=== PATIENT | female | born 1990 | race Caucasian/White ===

== ENCOUNTER 2018-09-20 14:53 | Emergency (ER) | payer OTHER ==
[~2018-09-20] VITALS: Ht 154.9 cm; Wt 79.5 kg
[2018-09-20] MEDS ORDERED: PREN1CHW6 PO (14:58)
[2018-09-20 15:33] LABS: BASO # 0.1 10^3/uL (0.0-0.2); BASO % 0.5 % (0.0-1.0); EOS # 0.1 10^3/uL (0.0-0.50); EOS % 1.3 % (0.0-3.0); HEMATOCRIT 43.1 % (36.0-47.0); HEMOGLOBIN 14.6 g/dl (12.0-15.5); LYMPH # 2.6 10^3/uL (1.5-6.5); LYMPH % 25.1 % (24.0-44.0); MEAN CORPUSCULAR HEMOGLOBIN 30.9 pg (27.0-33.0); MEAN CORPUSCULAR HGB CONC 33.9 g/dl (32.0-36.5); MEAN CORPUSCULAR VOLUME 91.1 fl (80.0-96.0); MONO # 0.6 10^3/uL (0.0-0.8); MONO % 5.8 % (0.0-5.0); NEUTROPHILS # 6.9 10^3/uL (1.8-7.7); PLATELET COUNT, AUTOMATED 421 10^3/uL (150-450); RED BLOOD COUNT 4.73 10^6/uL (4.00-5.40); WHITE BLOOD COUNT 10.3 10^3/uL (4.0-10.0)
[2018-09-20 16:35] LABS: BLOOD UREA NITROGEN 10 MG/DL (7-18); CALCIUM LEVEL 9.4 MG/DL (8.5-10.1); CARBON DIOXIDE LEVEL 23 MEQ/L (21-32); CHLORIDE LEVEL 105 MEQ/L (98-107); CREATININE FOR GFR 0.57 MG/DL (0.55-1.30); GLOMERULAR FILTRATION RATE > 60.0 (>60); GLUCOSE, FASTING 88 MG/DL (70-100); HCG, SERUM QUANTITATIVE 9729 MIU/ML; POTASSIUM SERUM 4.1 MEQ/L (3.5-5.1); SODIUM LEVEL 137 MEQ/L (136-145)
[2018-09-20 17:22] VITALS: BP 102/61
--- NOTE | 2018-09-21 07:53 | REP ---
First trimester obstetric ultrasound for vaginal bleeding, stat request: There are no comparison studies. The bladder appears adequately distended. The uterus is anteverted and normal size measuring Mari 1 x 3.6 by 4.1 cm. There is no intrauterine gestational sac. The endometrium is not thickened measuring 8.9 mm. Right ovary: The right ovary is normal size measuring 2.2 x 2.3 x 1.9 cm. There is no dominant mass or cyst. There is vascular flow with the Doppler resistive index in the parenchymal arteries measuring 0.64. Left ovary: There is a left ovarian cyst measuring 2.4 x 1.9 x 2.6 cm, possibly a corpus luteum. The left ovary is normal size measuring 2.2 x 2.7 x 3.3 cm. There is left ovarian vascular flow. The Doppler resistive index in an the parenchymal arteries measures 0.65. No free fluid in the pelvis. Impression: There is no visible intrauterine gestation. This is nonspecific and could represent early gestation not yet visible ultrasonographically, spontaneous or ectopic gestation. Follow-up is recommended. Electronically Signed by Adonis Lehman MD 09/20/2018 05:02 P
== END 2018-09-20 18:20 | disposition home or self-care (01) ==
LOC: M ED 14:53
DX: O03.9 Complete or unspecified spontaneous abortion without complication (principal); O99.330 Smoking (tobacco) complicating pregnancy, unspecified trimester; Z79.899 Other long term (current) drug therapy; Z91.041 Radiographic dye allergy status; Z88.0 Allergy status to penicillin

== ENCOUNTER 2019-02-07 17:28 | Emergency (ER) | payer OTHER ==
[~2019-02-07] VITALS: Ht 154.9 cm; Wt 82.7 kg
[~2019-02-07 17:28] MED LIST: PREN1CHW6 PO
[2019-02-07] MEDS ORDERED: CHOL4PW PO (17:33)
[2019-02-07] MEDS ORDERED: diphenhydrAMINE INJ 50MG/ML VIAL (J1200) IV STA (18:21)
[2019-02-07] MEDS ORDERED: ACETAMINOPHEN 325 MG TAB PO ONE (18:30)
[2019-02-07] MEDS ORDERED: METOCLOPRAMIDE INJ 10MG/2ML VIAL (J2765) IV ONE (18:30)
[2019-02-07] MEDS ORDERED: NS 1,000 ML IV ONE (18:30)
[2019-02-07 19:19] LABS: BASO % 0.6 % (0.0-1.0); EOS # 0.2 10^3/uL (0.0-0.5); EOS % 2.5 % (0.0-3.0); HEMOGLOBIN 13.9 g/dl (12.0-15.5); LYMPH # 2.6 10^3/uL (1.5-5.0); LYMPH % 35.4 % (24.0-44.0); MEAN CORPUSCULAR HEMOGLOBIN 30.4 pg (27.0-33.0); MEAN CORPUSCULAR HGB CONC 33.9 g/dl (32.0-36.5); MEAN CORPUSCULAR VOLUME 89.7 fl (80.0-96.0); MONO # 0.7 10^3/uL (0.0-0.8); MONO % 9.4 % (0.0-5.0); NEUTROPHILS # 3.8 10^3/uL (1.5-8.5); NEUTROPHILS % 51.8 % (36.0-66.0); PLATELET COUNT, AUTOMATED 368 10^3/uL (150-450); RED BLOOD COUNT 4.57 10^6/uL (4.00-5.40); WHITE BLOOD COUNT 7.3 10^3/uL (4.0-10.0)
--- NOTE | 2019-02-07 21:08 | REPVR ---
PROCEDURE INFORMATION: Exam: MR Angiography Neck Without Contrast Exam date and time: 02/07/2019 8:37 PM Age: 28 years old Clinical history: Headache; Patient HX: HX migraine disorder, neck pain, stiffness. Family HX aneurysm PT denies and prior dx. Symptoms have subsided. PT states priors @ [facility] unable to access priors; Additional info: Neck pain, fam HX aneurysm TECHNIQUE: Imaging protocol: Magnetic resonance angiography of the neck without contrast. 3D rendering: MIP reconstructed images were created and reviewed. COMPARISON: No relevant prior studies available. FINDINGS: Right common carotid artery: Unremarkable. No stenosis. No dissection or occlusion. Right internal carotid artery: Unremarkable extracranial segment. No stenosis. No dissection or occlusion. Right external carotid artery: Unremarkable. No stenosis. No dissection or occlusion of the origin. Right vertebral artery: Unremarkable. No stenosis. No dissection or occlusion. Left common carotid artery: Unremarkable. No stenosis. No dissection or occlusion. Left internal carotid artery: Unremarkable extracranial segment. No stenosis. No dissection or occlusion. Left external carotid artery: Unremarkable. No stenosis. No dissection or occlusion of the origin. Left vertebral artery: Unremarkable. No stenosis. No dissection or occlusion. IMPRESSION: No hemodynamically significant stenosis or dissection. COMMENT: Reference per NASCET criteria for degree of stenosis: Mild: less than 50% stenosis. Moderate: 50-69% stenosis. Severe: 70-94% stenosis. Near occlusion: 95-99% stenosis. Electronically signed by: Saturnino Drake On 02/07/2019 21:07:13 PM
--- NOTE | 2019-02-07 21:12 | REPVR ---
PROCEDURE INFORMATION: Exam: MR Angiogram Head Without Contrast, Arteries Exam date and time: 02/07/2019 8:37 PM Age: 28 years old Clinical history: Headache; Patient HX: HX migraine disorder, neck pain, stiffness. Family HX aneurysm PT denies and prior dx. Symptoms have subsided. PT states priors @ [facility] [place] unable to access priors; Additional info: Neck pain, HX family aneurysm TECHNIQUE: Imaging protocol: MR angiogram head without contrast. Exam focused on the arteries. 3D rendering: MIP reconstructed images were created and reviewed. COMPARISON: MRA CAROTID WITHOUT CONTRAST 02/07/2019 8:19 PM FINDINGS: Right internal carotid artery: Unremarkable. Intracranial segment is patent with no significant stenosis. No aneurysm. Right anterior cerebral artery: Unremarkable. No occlusion or significant stenosis. No aneurysm. Right middle cerebral artery: Unremarkable. No occlusion or significant stenosis. No aneurysm. Right posterior cerebral artery: Unremarkable. No occlusion or significant stenosis. No aneurysm. Right vertebral artery: Unremarkable. No occlusion or significant stenosis. No aneurysm. Left internal carotid artery: Unremarkable. Intracranial segment is patent with no significant stenosis. No aneurysm. Left anterior cerebral artery: Unremarkable. No occlusion or significant stenosis. No aneurysm. Left middle cerebral artery: Unremarkable. No occlusion or significant stenosis. No aneurysm. Left posterior cerebral artery: Unremarkable. No occlusion or significant stenosis. No aneurysm. Left vertebral artery: Unremarkable. No occlusion or significant stenosis. No aneurysm. Basilar artery: Unremarkable. No occlusion or significant stenosis. No aneurysm. IMPRESSION: No acute findings. Electronically signed by: Saturnino Drake On 02/07/2019 21:11:41 PM
[2019-02-07] MEDS ORDERED: METHOCARBAMOL 1,000 MG/10 ML VIAL (J2800) IV ONE (21:30)
[2019-02-07] MEDS ORDERED: KETOROLAC 30 MG/ML VIAL (J1885) IV ONE (21:30)
[2019-02-07] MEDS ORDERED: NAPR-837 PO (23:00)
[2019-02-07] MEDS ORDERED: ROBA750T4 PO (23:00)
[2019-02-07 23:20] VITALS: BP 114/72
== END 2019-02-07 23:25 | disposition home or self-care (01) ==
LOC: M ED 17:28
DX: M54.2 Cervicalgia (principal); M62.838 Other muscle spasm; R51 Headache; K58.9 Irritable bowel syndrome, unspecified; F17.200 Nicotine dependence, unspecified, uncomplicated; Z79.899 Other long term (current) drug therapy; Z88.0 Allergy status to penicillin; Z91.89 Other specified personal risk factors, not elsewhere classified
CPT/HCPCS: 70544; 70547; 80047; 83735; 84702; 85025; 96361; 96374; 96375; 99284; J1200; J1885; J2765; J2800

== ENCOUNTER 2019-04-27 12:11 | Emergency (ER) | payer OTHER ==
[~2019-04-27] VITALS: Ht 154.9 cm; Wt 82.8 kg
[~2019-04-27 12:11] MED LIST changes: +CHOL4PW PO; +NAPR-837 PO; +ROBA750T4 PO
[2019-04-27] MEDS ORDERED: EXCETAB22 PO (12:23)
[2019-04-27] MEDS ORDERED: DOXY-350 PO (12:23)
[2019-04-27] MEDS ORDERED: TYLENOL (12:23)
[2019-04-27] MEDS ORDERED: PROM50TA4 PO (12:23)
[2019-04-27] MEDS ORDERED: ONDANSETRON 4MG/2ML VIAL (J2405) IV ONE (14:15)
[2019-04-27] MEDS ORDERED: diphenhydrAMINE INJ 50MG/ML VIAL (J1200) IV ONE (14:15)
[2019-04-27] MEDS ORDERED: NS 1,000 ML IV ONE ×2 (14:30→16:45)
[2019-04-27] MEDS ORDERED: KETOROLAC 30 MG/ML VIAL (J1885) IV ONE (15:00)
--- NOTE | 2019-04-27 15:19 | REPVR ---
PROCEDURE INFORMATION: Exam: CT Head Without Contrast Exam date and time: 04/27/2019 3:05 PM Age: 28 years old Clinical indication: Pain; Headache TECHNIQUE: Imaging protocol: Computed tomography of the head without contrast. Radiation optimization: All CT scans at this facility use at least one of these dose optimization techniques: automated exposure control; mA and/or kV adjustment per patient size (includes targeted exams where dose is matched to clinical indication); or iterative reconstruction. COMPARISON: MRA BRAIN W/O CONTRAST 02/07/2019 8:34 PM FINDINGS: Brain: There is no acute intracranial hemorrhage. No extra-axial fluid collection. No evidence of acute infarct. Spring white differentiation is intact. There is no evidence of mass. There is no mass effect or midline shift. Ventricles: No ventriculomegaly. Bones/joints: No acute fracture. Sinuses: There is mucosal thickening in paranasal sinuses. There is fluid in left maxillary and left sphenoid sinuses and likely in small left shagufta bullosa which may indicate acute sinusitis. Mastoid air cells: No significant mastoid effusion. Soft tissues: Unremarkable as visualized. IMPRESSION: 1. No evidence of acute intracranial abnormality. 2. Sinusitis as described. Electronically signed by: Khushboo Vega On 04/27/2019 15:19:42 PM
[2019-04-27 16:28] LABS: CHLAMYDIA DNA AMPLIFICATION NEGATIVE (NEGATIVE); GC DNA AMPLIFICATION NEGATIVE (NEGATIVE)
[2019-04-27] MEDS ORDERED: MORPHINE 2 MG/ML 1ML VIAL (J2270) IV ONE (16:45)
[2019-04-27] MEDS ORDERED: ACETAMINOPHEN 500 MG TAB PO ONE (16:45)
[2019-04-27] MEDS ORDERED: dexameTHASONE 4 MG/ML 1ML VIAL (J1100) IV ONE (16:45)
[2019-04-27] MEDS ORDERED: TOPIRAMATE (TopAMAX) 25 MG TAB PO ONE (19:00)
[2019-04-27] MEDS ORDERED: VALPROATE SOD INJ 1,000 MG in D5W 50 ML IV ONE (19:00)
[2019-04-27] MEDS ORDERED: TOPA50TA8 PO (20:22)
[2019-04-27 20:33] VITALS: BP 118/67
== END 2019-04-27 20:36 | disposition home or self-care (01) ==
LOC: M ED 12:11
DX: G43.909 Migraine, unspecified, not intractable, without status migrainosus (principal); Z20.89 Contact with and (suspected) exposure to other communicable diseases; J01.90 Acute sinusitis, unspecified; K58.9 Irritable bowel syndrome, unspecified; F17.200 Nicotine dependence, unspecified, uncomplicated; Z84.89 Family history of other specified conditions; Z91.041 Radiographic dye allergy status; Z88.0 Allergy status to penicillin
CPT/HCPCS: 36415; 70450; 84702; 87210; 87661; 96361; 96365; 96374; 96375; 99284; J1100; J1200; J1885; J2270; J2405

== ENCOUNTER → 2019-07-27 | Outpatient (REF) | payer OTHER ==
[~2019-07-27] MED LIST changes: +DOXY-350 PO; +EXCETAB22 PO; +PROM50TA4 PO; +TOPA50TA8 PO; +TYLENOL
[2019-07-27 14:09] LABS: BASO # 0.1 10^3/uL (0.0-0.2); BASO % 0.7 % (0.0-1.0); EOS # 0.1 10^3/uL (0.0-0.5); EOS % 1.1 % (0.0-3.0); HEMATOCRIT 41.6 % (36.0-47.0); HEMOGLOBIN 13.7 g/dl (12.0-15.5); LYMPH # 2.3 10^3/uL (1.5-5.0); LYMPH % 31.8 % (24.0-44.0); MEAN CORPUSCULAR HGB CONC 32.9 g/dl (32.0-36.5); MONO # 0.6 10^3/uL (0.0-0.8); MONO % 8.5 % (0.0-5.0); NEUTROPHILS # 4.1 10^3/uL (1.5-8.5); NEUTROPHILS % 57.6 % (36.0-66.0); PLATELET COUNT, AUTOMATED 419 10^3/uL (150-450); RED BLOOD COUNT 4.57 10^6/uL (4.00-5.40); WHITE BLOOD COUNT 7.1 10^3/uL (4.0-10.0)
[2019-07-27 14:48] LABS: ALT/SGPT 30 U/L (12-78); BILIRUBIN,TOTAL 0.3 MG/DL (0.2-1.0); BLOOD UREA NITROGEN 13 MG/DL (7-18); CALCIUM LEVEL 9.2 MG/DL (8.5-10.1); CARBON DIOXIDE LEVEL 21 MEQ/L (21-32); CHLORIDE LEVEL 109 MEQ/L (98-107); CHOLESTEROL LEVEL 216 MG/DL (<200); CREATININE FOR GFR 0.72 MG/DL (0.55-1.30); FREE T4 0.91 NG/DL (0.76-1.46); GLOMERULAR FILTRATION RATE > 60.0 (>60); GLUCOSE, FASTING 97 MG/DL (70-100); HDL CHOLESTEROL 36 MG/DL (>40); LDL CHOLESTEROL 148 MG/DL (<100); NON-HDL-C 180 MG/DL; SODIUM LEVEL 137 MEQ/L (136-145); TOTAL PROTEIN 7.3 GM/DL (6.4-8.2); TRIGLYCERIDES LEVEL 160 MG/DL (<150)
[2019-07-27 15:16] LABS: APPEARANCE, URINE MANUAL TURBID (CLEAR); COLOR, URINE MANUAL YELLOW (YELLOW)
[2019-07-27 15:18] LABS: BILIRUBIN, URINE MANUAL NEGATIVE (NEGATIVE); BLOOD URINE MANUAL TRACE (NEGATIVE); GLUCOSE, URINE (UA) MANUAL NEGATIVE (NEGATIVE); KETONE, URINE MANUAL NEGATIVE (NEGATIVE); LEUKOCYTE ESTERASE, URINE MAN NEGATIVE (NEGATIVE); NITRITE, URINE MANUAL NEGATIVE (NEGATIVE); PROTEIN, URINE MANUAL NEGATIVE (NEGATIVE); UROBILINOGEN, URINE MANUAL NORMAL (NORMAL)
[2019-07-27 19:24] LABS: RBC, URINE NONE SEEN /hpf (0-3); SQUAMOUS EPITHELIAL CELL URINE LARGE AMOUNT /hpf (SMALL AMT)
[2019-07-27 19:25] LABS: AMORPHOUS SEDIMENT, URINE LARGE AMOUNT (NEGATIVE); BACTERIA, URINE NONE SEEN; HYALINE CAST, URINE NONE SEEN /lpf (0-1)
== END ==
LOC: M LAB REF 12:05
PROVIDERS: ATTEND Nurse Practitioner Family
DX: F17.200 Nicotine dependence, unspecified, uncomplicated (principal); G43.009 Migraine without aura, not intractable, without status migrainosus; Z13.9 Encounter for screening, unspecified; E66.9 Obesity, unspecified

== ENCOUNTER → 2019-07-30 | Outpatient (REF) | payer OTHER, MEDICAID | LOC: M LAB REF 11:46 | PROVIDERS: ATTEND Nurse Practitioner Family | DX: Z13.9 Encounter for screening, unspecified (principal); N92.5 Other specified irregular menstruation ==

== ENCOUNTER → 2019-08-25 | Outpatient (REF) | payer OTHER, MEDICAID ==
[2019-08-25 14:57] LABS: HEMATOCRIT 41.6 % (36.0-47.0); HEMOGLOBIN 13.6 g/dl (12.0-15.5); MEAN CORPUSCULAR HGB CONC 32.7 g/dl (32.0-36.5); MEAN CORPUSCULAR VOLUME 91.6 fl (80.0-96.0); PLATELET COUNT, AUTOMATED 368 10^3/uL (150-450); RED BLOOD COUNT 4.54 10^6/uL (4.00-5.40); WHITE BLOOD COUNT 7.7 10^3/uL (4.0-10.0)
[2019-08-25 15:10] LABS: FREE T4 0.86 NG/DL (0.76-1.46)
[2019-08-25 15:50] LABS: HEPATITIS C VIRUS ABY INDEX 0.1 INDEX (<0.8)
[2019-08-25 15:51] LABS: HIV 1&2 SCREEN CENTAUR NEGATIVE (NEGATIVE)
[2019-08-25 16:32] LABS: CHLAMYDIA DNA AMPLIFICATION NEGATIVE (NEGATIVE); GC DNA AMPLIFICATION NEGATIVE (NEGATIVE)
== END ==
LOC: M PLALAB 11:04
PROVIDERS: ATTEND Advanced Practice Midwife
DX: Z34.01 Encounter for supervision of normal first pregnancy, first trimester (principal); Z3A.00 Weeks of gestation of pregnancy not specified

== ENCOUNTER → 2019-11-03 | Outpatient (CLI) | payer OTHER ==
--- NOTE | 2019-11-22 17:37 | REP ---
COMPLETE OBSTETRIC ULTRASOUND: 11/03/19 CLINICAL: Anatomical evaluation. TECHNIQUE: Transabdominal obstetric ultrasound with color Doppler evaluation. FINDINGS: Ultrasound examination demonstrates a single live intrauterine in variable presentation. Placenta noted anteriorly and grade 0 without evidence for placenta previa or abruption. Amniotic fluid volume is normal. The cervix measures 5.3cm in length and appears closed. HEART RATE: 142bpm BPD: 44mm; 19 weeks 3 days HC: 165mm; 19 weeks 2 days AC: 140mm; 19 weeks 3 days FL: 30mm; 19 weeks 3 days HL: 29mm; 19 weeks 3 days Estimated age by current measurements 19 weeks 3 days. Estimated weight 287g (40th percentile) Anatomical assessment demonstrates normal cisterna magna, cavum, thalamus, spine, stomach, kidneys/bladder, three vessel cord/cord insertion, facial profile and extremities. Limited evaluation of the four chamber heart/ventricular outflow tract and nose and lips. IMPRESSION: 1. Single live intrauterine in variable presentation demonstrating appropriate interval growth. 2. Anatomical limitations as noted above may warrant reevaluation and follow- up. No gross abnormalities are identified. MTDD
== END ==
LOC: M WHC 07:59
PROVIDERS: ATTEND Advanced Practice Midwife
DX: Z34.80 Encounter for supervision of other normal pregnancy, unspecified trimester (principal)

== ENCOUNTER → 2019-12-06 | Outpatient (CLI) | payer MEDICAID ==
--- NOTE | 2019-12-09 10:55 | REP ---
FOLLOW-UP OBSTETRICAL ULTRASOUND CLINICAL: Follow-up anatomy. COMPARISON: 11/03/2019. FINDINGS: Ultrasound examination demonstrates single live intrauterine . Placenta is noted anteriorly and grade 0 without evidence for placenta previa. Cervix measures 3.3 cm in length and appears closed. Gestational age by last menstrual period (LMP) 24 weeks 2 days with estimated date of delivery (MIGUEL ÁNGEL) 03/25/2020. heart rate equals 147 beats per minute. Estimated weight by current measurements 668 grams (35th percentile). Limited anatomical assessment demonstrates normal facial features including profile and nose/lips, four chamber heart, and cardiac ventricular outflow tracts. IMPRESSION: Single live intrauterine demonstrating appropriate interval growth. In conjunction with prior examination, anatomical assessment is complete and normal. MTDD
== END ==
LOC: M WHC 08:05
PROVIDERS: ATTEND Advanced Practice Midwife
DX: O99.352 Diseases of the nervous system complicating pregnancy, second trimester (principal); Z3A.24 24 weeks gestation of pregnancy

== ENCOUNTER → 2019-12-21 | Outpatient (REF) | payer OTHER, MEDICAID ==
[2019-12-21 14:12] LABS: HEMATOCRIT 34.7 % (36.0-47.0); HEMOGLOBIN 11.3 g/dl (12.0-15.5); MEAN CORPUSCULAR HEMOGLOBIN 30.3 pg (27.0-33.0); MEAN CORPUSCULAR HGB CONC 32.6 g/dl (32.0-36.5); PLATELET COUNT, AUTOMATED 322 10^3/uL (150-450); RED BLOOD COUNT 3.73 10^6/uL (4.00-5.40); WHITE BLOOD COUNT 8.6 10^3/uL (4.0-10.0)
== END ==
LOC: M PLALAB 10:04
PROVIDERS: ATTEND Advanced Practice Midwife
DX: O99.352 Diseases of the nervous system complicating pregnancy, second trimester (principal)

== ENCOUNTER → 2019-12-29 | Outpatient (CLI) | payer OTHER | LOC: M LAB 07:52 | PROVIDERS: ATTEND Advanced Practice Midwife | DX: O99.810 Abnormal glucose complicating pregnancy (principal) ==

== ENCOUNTER → 2020-02-16 | Outpatient (CLI) | payer OTHER, MEDICAID | LOC: M WHC 08:46 | PROVIDERS: ATTEND Obstetrics & Gynecology | DX: Z3A.34 34 weeks gestation of pregnancy (principal) ==

== ENCOUNTER → 2020-02-23 | Outpatient (CLI) | payer OTHER, MEDICAID ==
--- NOTE | 2020-02-23 12:02 | REP ---
INDICATION: SIZE GREATER THAN DATES/GROWTH COMPARISON: 12/06/2019 TECHNIQUE: Transabdominal obstetrical ultrasound with color Doppler evaluation. FINDINGS: Examination demonstrates a single live intrauterine in cephalic presentation. motion is identified by technologist. Placenta is noted anterior and grade 2 without evidence for placenta previa or abruption. Amniotic fluid volume is normal. Cervix measures 3.1 cm in length and appears closed.. Gestational age by LMP 35 weeks 4 days with MIGUEL ÁNGEL 03/25/2020. Gestational age by current measurements 35 weeks 3 days with MIGUEL ÁNGEL 03/26/2020. FHR equals 146 beats per minute. BPD: 8.6 cm 34 weeks 6 days HC: 30.9 cm 34 weeks 4 days AC: 32.6 cm 36 weeks 3 days FL: 6.9 cm 35 weeks 4 days HL: 6.2 cm 35 weeks 6 days HC/AC: 0.95 Estimated weight 2778 grams (60thpercentile). IMPRESSION: Single live advanced gestation in cephalic presentation demonstrating appropriate estimated weight and growth. <Electronically signed by Phi Martin > 02/23/20 [id number]
== END ==
LOC: M WHC 10:59
PROVIDERS: ATTEND Obstetrics & Gynecology
DX: Z36.9 Encounter for antenatal screening, unspecified (principal); Z3A.36 36 weeks gestation of pregnancy

== ENCOUNTER → 2020-03-01 | Outpatient (REF) | payer OTHER, MEDICAID | LOC: M PLALAB 10:16 | PROVIDERS: ATTEND Obstetrics & Gynecology | DX: Z3A.36 36 weeks gestation of pregnancy (principal) ==

== ENCOUNTER → 2020-03-01 | Outpatient (REF) | payer OTHER, MEDICAID | LOC: M SFHCWAGY 17:18 | PROVIDERS: ATTEND Obstetrics & Gynecology | DX: Z34.83 Encounter for supervision of other normal pregnancy, third trimester (principal); Z3A.36 36 weeks gestation of pregnancy ==

== ENCOUNTER 2020-03-09 01:37 | Emergency (ER) | payer MEDICAID, OTHER ==
[~2020-03-09] VITALS: Ht 154.9 cm; Wt 98.6 kg
--- OUTSIDE RECORDS SUMMARY | 2020-03-09 01:48 | CCD ---
Author Author [facility] Organization [facility] Address Unknown Phone Unavailable Care Team Providers Care Shuttle Driver Name Role Phone Cori Be Unavailable PROBLEMS Type Condition ICD9-CM Code [id number] Code Onset Dates Condition S tatus SNOMED Code Notes Problem Supervision of other normal Z34.80 Ac tive 931562653 ALLERGIES Allergen (clinical drug ingredient) Drug/Non Drug Allergy do cumented on EMR Reaction Allergy Type Onset Date Status Shell fish Unknown Non Drug Allergy Active Iodine([facility] Code:38321-43332) Anaphylaxis Drug Allergy Active Penicillin Unknown Non Drug Allergy Active ENCOUNTERS from 1991 to 2020-03-04 Encounter Location Date Provider Diagnosis [facility] [address] [place] [address] Feb, Cori Be 36 weeks gestation o f Z3A.36 and Diet controlled gestational diabetes mellitus (GDM) in third trimester O24.410 IMMUNIZATIONS Vaccine Route Administration Date Status TDAP 0.5mL (Boostrix) IM Intramuscular Feb 16, 2020 Administe red Influenza (6mo & up) Fluzone IM Intramuscular Nov 26, 2019 Ad ministered SOCIAL HISTORY Tobacco Use: Social History Observation Description Date Details (start date - stop date) Former Smoker Sex Assigned At : Social History Observation Description Sex Assigned At Unknown Tobacco Use: Question Answer Notes Are you a: former smoker How long has it been since you last smoked? < 1 month REASON FOR REFERRAL No Information VITAL SIGNS Weight 212 lbs Feb, Blood pressure systolic 130 mm Hg Feb, Blood pressure diastolic 70 mm Hg Feb, MEDICATIONS Medication SIG (Take, Route, Frequency, Duration) Notes Start Da te End Date Status Esgic 50-325-40 MG 1 tablet as needed Orally every 4 hrs for 30 days Nov, Active Contour Blood Glucose System w/Device as directed Dec, Active 28-0.8 MG 1 tablet Orally Once a day Active Test Strips - to test 4 times per day Dec, Active Alcohol Pads 70 % as directed topical up to 4 times per day Dec, Active Excedrin Tension Headache 500-65 MG 2 tablets as neede d Orally Three times a day Active MiraLax - 1 packet mixed with 8 ounces of fluid Orally Once a day Active Lancets - as directed 4 times per day Dec, Active PROCEDURES No Information RESULTS Component Value Reference Range GROUP B STREP CULTURE Reviewed date:03/03/2020 09:08:45 Interpretation: Performing Lab:[facility], [facility] [address] [facility] [id number] , ,[place] [id number] REASON FOR VISIT 2WK PN MEDICAL (GENERAL) HISTORY Type Description Date Medical History migraine headaches Surgical History gall bladder Surgical History gallstones Surgical History wisdom teeth Surgical History tonsillectomy Hospitalization History gallbladder Hospitalization History migraines Goals Section No Information Health Concerns No Information MEDICAL EQUIPMENT No Information MENTAL STATUS No Information FUNCTIONAL STATUS No Information ASSESSMENTS Encounter Date Diagnosis Assessment Notes Treatment Notes Treatm ent Clinical Notes Feb, 36 weeks gestation of (ICD-10 - Z3A.36 ) Feb, Diet controlled gestational diabetes mellitus (GDM) in third trimester (ICD-10 - O24.410) PLAN OF TREATMENT Next Appt Details 2 Weeks Reason:PN Provider Name:Gita Paulino, 2020-03-16 11:20:00 AM, [address] [place], [address], Follow Up:2 WeeksPN Insurance Providers Payer Name Payer Address Payer Phone Insured Name Patient Relati onship to Insured Coverage Start Date Coverage End Date [employer] DEPT [address] [facility] [phone] LOPERFIDO,XAVIER REENEE [facility] MEDICAID [facility] [address] [facility] [id number] XAVIER CHANG self
--- OUTSIDE RECORDS SUMMARY | 2020-03-09 01:48 | CCD ---
Author Author [facility] Organization [facility] Address Unknown Phone Unavailable Care Team Providers Care Block Hacker Name Role Phone Cori Be Unavailable PROBLEMS Type Condition ICD9-CM Code [id number] Code Onset Dates Condition S tatus SNOMED Code Notes Problem Supervision of other normal Z34.80 Ac tive [id number] ALLERGIES Allergen (clinical drug ingredient) Drug/Non Drug Allergy do cumented on EMR Reaction Allergy Type Onset Date Status Shell fish Unknown Non Drug Allergy Active Iodine([facility] Code:96777-87068) Anaphylaxis Drug Allergy Active Penicillin Unknown Non Drug Allergy Active ENCOUNTERS from 1991 to 2020-02-10 Encounter Location Date Provider Diagnosis [facility] [address] [place] [address] Jan, Cori Be Diet controlled gest ational diabetes mellitus (GDM) in third trimester O24.410 and 33 weeks gestation of Z3A.33 IMMUNIZATIONS Vaccine Route Administration Date Status Influenza (6mo & up) Fluzone IM Intramuscular [...] FOR REFERRAL No Information VITAL SIGNS Weight 201.6 lbs Jan, Height 61 in Jan, BMI 38.092 kg/m2 Jan, Blood pressure systolic 124 mm Hg Jan, Blood pressure diastolic 70 mm Hg Jan, MEDICATIONS Medication SIG (Take, Route, Frequency, Duration) Notes Start Da te End Date Status MiraLax - 1 packet mixed with 8 ounces of fluid Orally Once a day Active Test Strips - to test 4 times per day Dec, Active Lancets - as directed 4 times per day Dec, Active Esgic 50-325-40 MG 1 tablet as needed Orally every 4 hrs for 30 days Nov, Active Alcohol Pads 70 % as directed topical up to 4 times per day Dec, Active 28-0.8 MG 1 tablet Orally Once a day Active Contour Blood Glucose System w/Device as directed Dec, Active Excedrin Tension Headache 500-65 MG 2 tablets as neede d Orally Three times a day Active PROCEDURES No Information RESULTS No Results REASON FOR VISIT 2WK PN MEDICAL (GENERAL) [...] Notes Treatment Notes Treatm ent Clinical Notes Jan, Diet controlled gestational diabetes mellitus (GDM) in third trimester (ICD-10 - O24.410) Jan, 33 weeks gestation of (ICD-10 - Z3A.33 ) PLAN OF TREATMENT Next Appt Details 1 Week Reason:PN Provider Name:Cori Be, 2020-01 08:20:00 AM, [address] [place], [address], Follow Up:1 WeekPN Insurance Providers Payer Name Payer Address Payer Phone Insured Name Patient Relati onship to Insured Coverage Start Date Coverage End Date [facility] CORPORATE CLAIMS DEPT [address] [facility] [phone] LOPERFIDO,XAVIER REENEE self MEDICAID [facility] [address] [facility] [id number] LOPERFIDO,XAVIER REENEE self
--- OUTSIDE RECORDS SUMMARY | 2020-03-09 01:48 | CCD ---
Author Author [facility] Organization [facility] Address Unknown Phone Unavailable Care Team Providers Care Manager Utilization Management Name Role Phone Cori Be Unavailable PROBLEMS Type Condition ICD9-CM Code [id number] Code Onset Dates Condition S tatus SNOMED Code Notes Problem Supervision of other normal Z34.80 Ac tive [id number] ALLERGIES Allergen (clinical drug ingredient) Drug/Non Drug Allergy do cumented on EMR Reaction Allergy Type Onset Date Status Shell fish Unknown Non Drug Allergy Active Iodine([facility] Code:04442-02776) Anaphylaxis Drug Allergy Active Penicillin Unknown Non Drug Allergy Active ENCOUNTERS from 1991 to 2020-02-18 Encounter Location Date Provider Diagnosis [facility] [address] [place] [address] Jan, Cori Be Uterine size-date di screpancy in third trimester O26.843 ; Diet controlled gestational diabetes mellitus (GDM) in third trimester O24.410 ; 34 weeks gestation of Z3A.34 and Encounter for im munization Z23 IMMUNIZATIONS Vaccine Route Administration Date Status TDAP [...] FOR REFERRAL No Information VITAL SIGNS Weight 207.2 lbs Jan, Weight-kg 93.98 kg Jan, Height 61 in Jan, BMI 39.15 kg/m2 Jan, Blood pressure systolic 120 mm Hg Jan, Blood pressure diastolic 72 mm Hg Jan, MEDICATIONS Medication SIG (Take, [...] 4 times per day Dec, Active PROCEDURES from 1991 to 2020-02-18 Procedure Date Ordered Result Body Site Immunization: Boostrix 0.5mL IM (TDAP) 2020-02-16 N/A RESULTS No Results REASON FOR VISIT 2WK [...] Treatment Notes Treatm ent Clinical Notes Jan, Uterine size-date discrepanc y in third trimester (ICD-10 - O26.843) Jan, Diet controlled gestational diabetes mellitus (GDM) in third trimester (ICD-10 - O24.410) Jan, 34 weeks gestation of (ICD-10 - Z3A.34 ) Jan, Encounter for immunization (ICD-10 - Z23) PLAN OF TREATMENT Treatment Notes Test Name Order Date WW OBS FOLLOW UP OR REPEAT 2020-02-18 Next Appt Details 2 Weeks Reason:PN Provider Name:Cori Be, 2020-02 11:20:00 AM, [facility] [place], [address], Follow Up:2 WeeksPN Insurance Providers Payer Name Payer Address Payer Phone Insured Name Patient Relati onship to Insured Coverage Start Date Coverage End Date [facility] CORPORATE CLAIMS DEPT [address] [facility] [phone] XAVIER CHANG MEDICAID [employer] [address] [facility] [id number] XAVIER CHANG self
[2020-03-09] MEDS ORDERED: BENA25CA4 PO (01:49)
--- OUTSIDE RECORDS SUMMARY | 2020-03-09 01:49 | CCD ---
Author Author [facility] Organization [facility] Address Unknown Phone Unavailable Care Team Providers Care Gettering Operator Name Role Phone Gita Paulino Unavailable PROBLEMS Type Condition ICD9-CM Code GGY87-NE Code Onset Dates Condition S tatus SNOMED Code Notes Problem Supervision of other normal Z34.80 Ac tive [id number] ALLERGIES Allergen (clinical drug ingredient) Drug/Non Drug Allergy do cumented on EMR Reaction Allergy Type Onset Date Status Shell fish Unknown Non Drug Allergy Active Iodine([facility] Code:36443-87698) Anaphylaxis Drug Allergy Active Penicillin Unknown Non Drug Allergy Active ENCOUNTERS from 1991 to 2019-12-31 Encounter Location Date Provider Diagnosis [facility] [address] [place] [id number] Dec, Gita Paulino IMMUNIZATIONS Vaccine Route Administration Date Status Influenza [...] REASON FOR REFERRAL No Information VITAL SIGNS No information MEDICATIONS Medication SIG (Take, Route, Frequency, Duration) Start Date En d Date Status 28-0.8 MG 1 tablet Orally Once a day Active Contour Blood Glucose System w/Device as directed Dec, Active Esgic 50-325-40 MG 1 tablet as needed Orally every 4 hrs fo r 30 days Nov, Active Test Strips - to test 4 times per day Dec, Ac tive MiraLax - 1 packet mixed with 8 ounces of fluid Orally Once a da y Active Excedrin Tension Headache 500-65 MG 2 tablets as neede d Orally Three times a day Active Alcohol Pads 70 % as directed topical up to 4 times per day Dec, Active Lancets - as directed 4 times per day Dec, Active PROCEDURES No Information RESULTS No Results REASON FOR VISIT A1GDM MEDICAL (GENERAL) HISTORY Type Description Date Medical History migraine headaches Surgical History gall bladder Surgical History gallstones Surgical History wisdom teeth Surgical History tonsillectomy Hospitalization History gallbladder Hospitalization History migraines Goals Section No Information Health Concerns No Information MEDICAL EQUIPMENT No Information MENTAL STATUS No Information FUNCTIONAL STATUS No Information ASSESSMENTS No Information PLAN OF TREATMENT Medication Medication Name Sig Start Date Stop Date Esgic 50-325-40 MG 1 tablet as needed Orally every 4 hrs fo r 30 days Nov, Alcohol Pads 70 % as directed topical up to 4 times per day 04 N 2019 Lancets - as directed 4 times per day Dec, Contour Blood Glucose System w/Device as directed Dec, Test Strips - to test 4 times per day Dec, Next Appt Details Provider Name:Gita Meka Paulino 2020-01-26 08:00:00 AM, [address] [place], [address], Insurance Providers Payer Name Payer Address Payer Phone Insured Name Patient Relati onship to Insured Coverage Start Date Coverage End Date [facility] [employer]PORATE CLAIMS DEPT [address] [facility] [phone] LOPERFIDO,XAVIER REENEE self MEDICAID [employer] [address] [facility] [id number] LOPERFIDO,XAVIER REENEE self
--- OUTSIDE RECORDS SUMMARY | 2020-03-09 01:49 | CCD | Continuity of Care Document ---
Author Author Betsey COLE P.A.-C. Organization Unknown Address [address] [place] [address] Phone [phone] Care Team Providers Care Hadoop Infrastructure Architect Name Role Phone SofiaajynesMicaela Noble FOOD SERVICES COORDINATOR [facility]M [phone] No PCP [facility]M Unavailable Problems Active Problems Provider Date Hypersomnia Hilario Lopez M.D. Onset: 05/25/2019 Malaise and fatigue Hilario Lopez M.D. Onset: 05/25/2019 Disorders of initiating and maintaining sleep Anatoliy Pretty Onset: 05/25/2019 Benign intracranial hypertension Hilario Lopez M.D. Onset: 05/25/2019 Obstructive sleep apnea syndrome Hilario Lopez M.D. Onset: 05/25/2019 Chronic tension-type headache Hilario Lopez M.D. Onset: Chronic intractable migraine without aura Hilario Lopez M.D. Onset: 05/25/2019 Social History Type Date Description Comments Sex Unknown Allergies, Adverse Reactions, Alerts Active Allergies Reaction Severity Comments Date Penicillin V 05/25/2019 Iodine 05/25/2019 Shellfish-Derived Products 0 05/25/2019 Medications Active Medications SIG Qnty Indications Ordering Provide r Date Ondansetron 4mg Tablets Dispers dissolve one tablet by mouth two times a day for nausea and vomiting 30tabs Hilario Lopez M.D. 05/25/2019 Immunizations Description No Information Available Vital Signs Date Vital Result Comment 10/27/2019 4:54am BP Systolic 110 mmHg BP Diastolic 80 mmHg Heart Rate 76 /min Respiratory Rate 16 /min 05/25/2019 9:50am Height 61 inches 5'1" Weight 175.00 lb BMI (Body Mass Index) 33.1 kg/m2 [place] Body Weight 105 lb Results Description No Information Available Procedures Description No Information Available Medical Devices Description No Information Available Encounters Type Date Location Provider Dx Diagnosis Office Visit 02/03/2020 8:00a Main office - [place] Jeff Arnett.A.-C. G43.719 Chronic migraine w/o aura, intractable, w/o stat migr G44.221 Chronic tension-type headach e, intractable G44.41 Drug-induced headache, not e lsewhere classified, intractable G47.63 Sleep related bruxism F51.01 Primary insomnia Office Visit 10/27/2019 9:45a Main office - [place] Felisha lorenzo P.A.-C. F51.01 Primary insomnia R06.83 Snoring G43.719 Chronic migraine w/o aura, i ntractable, w/o stat migr G44.221 Chronic tension-type headach e, intractable G47.63 Sleep related bruxism Z33.1 state, incidental Assessments Date Code Description Provider 02/03/2020 G43.719 Chronic migraine wit hout aura, intractable, without status migrainosus Felisha Cole, P.A.-C. 02/03/2020 G44.221 Chronic tension-type headache, i ntractable Felisha Cole, P.A.-C. 02/03/2020 G44.41 Drug-induced headache, not elsew here classified, intractable Felisha Cole, P.A.-C. 02/03/2020 G47.63 Sleep related bruxism Felisha bronson P.A.-C. 02/03/2020 F51.01 Primary insomnia Felisha Cole , P.A.-C. 10/27/2019 F51.01 Primary insomnia Felisha Cole , P.A.-C. 10/27/2019 R06.83 Snoring Felisha Cole, P.A.-C. 10/27/2019 G43.719 Chronic migraine wit hout aura, intractable, without status migrainosus Felisha Cole P.A.-C. 10/27/2019 G44.221 Chronic tension-type headache, i ntractable Felisha Cole, P.A.-C. 10/27/2019 G47.63 Sleep related bruxism Felisha bronson P.A.-C. 10/27/2019 Z33.1 state, incidental Felisha Cole P.A.-C. 09/07/2019 G47.30 Sleep apnea, unspecified Hilario Lopez M.D. Plan of Treatment 02/03/2020 - Felisha Cole P.A.-C.* G43.719 Chronic migraine without aura, intractable, without status migrainosus* Comments:* She can try B 2 daily. She was advised to reduce her use of Excedrin Tension Headache. She plans to breast feed her baby. * G44.221 Chronic tension-type headache, intractable* Comments:* She was advised to reduce her use of Excedrin Tension Headache. * G44.41 Drug-induced headache, not elsewhere classified, intractable* Comments: * She was advised to reduce use of Excedrin Tension Headache. * G47.63 Sleep related bruxism* Comments:* Reassess at next appt. * F51.01 Primary insomnia* Comments:* Improved. * Follow up:* 10-12 weeks Functional Status Description No Information Available Mental Status Description No Information Available Referrals Refer to Reason for Referral Status Appt Date Ivan May M.D. Created [facility] [address] [place] [address] [phone]
--- OUTSIDE RECORDS SUMMARY | 2020-03-09 01:49 | CCD | Continuity of Care Document ---
Author Author Betsey COLE P.A.-C. Organization Unknown Address [address] [place] [address] Phone [phone] Care Team Providers Care Arabic Translator Name Role Phone SofiaajynesMicaela Noble NUCLEAR CHEMISTRY TECHNICIAN AUTM [phone] No PCP [facility] Unavailable Problems Active Problems [...] lb BMI (Body Mass Index) 33.1 kg/m2 [place] Body Weight 105 lb Results Description No Information Available Procedures Description No Information Available Medical Devices Description No Information Available Encounters Type Date Location Provider Dx Diagnosis Office Visit 10/27/2019 9:45a Main office - [place] Felisha lorenzo, P.A.-C. F51.01 Primary insomnia R06.83 Snoring G43.719 Chronic migraine w/o aura, i ntractable, w/o stat migr G44.221 Chronic tension-type headach e, intractable G47.63 Sleep related bruxism Z33.1 state, incidental Assessments Date Code Description Provider 02/03/2020 G43.719 Chronic migraine wit hout aura, intractable, without status migrainosus Felisha Cole, P.A.-C. 02/03/2020 G44.221 Chronic tension-type headache, i ntractable Felisha Cole, P.A.-C. 02/03/2020 G47.63 Sleep related bruxism Felisha bronson P.A.-C. 02/03/2020 F51.01 Primary insomnia Felisha Cole , P.A.-C. 02/03/2020 R06.83 Snoring Felisha Cole, P.A.-C. 02/03/2020 Z33.1 state, incidental Felisha Cole, P.A.-C. 10/27/2019 F51.01 Primary insomnia Felisha Cole , P.A.-C. 10/27/2019 R06.83 Snoring Felisha Cole, P.A.-C. 10/27/2019 G43.719 Chronic migraine wit hout aura, intractable, without status migrainosus Felisha Cole, P.A.-C. 10/27/2019 G44.221 Chronic tension-type headache, i ntractable Felisha Cole, P.A.-C. 10/27/2019 G47.63 Sleep related bruxism Felisha Yoon icmaura, P.A.-C. 10/27/2019 Z33.1 state, incidental Felisha Cole, P.A.-C. 09/07/2019 G47.30 Sleep apnea, unspecified Hilario Lopez M.D. Plan of Treatment No Information Available Functional Status Description No Information Available Mental Status Description No Information Available Referrals Refer to Dr Reason for Referral Status Appt Date Ivan May M.D. Created [facility] [address] [id number] [phone]
--- OUTSIDE RECORDS SUMMARY | 2020-03-09 01:49 | CCD ---
Author Author [facility] Organization [facility] Address Unknown Phone Unavailable Care Team Providers Care Billet Recorder Name Role Phone Shaka Herndon Unavailable PROBLEMS Type Condition ICD9-CM Code IUT75-BD Code Onset Dates Condition S tatus SNOMED Code Notes Problem Supervision of other normal Z34.80 Ac tive [id number] ALLERGIES Allergen (clinical drug ingredient) Drug/Non Drug Allergy do cumented on EMR Reaction Allergy Type Onset Date Status Shell fish Unknown Non Drug Allergy Active Iodine([facility] Code:497[address]3957) Anaphylaxis Drug Allergy Active Penicillin Unknown Non Drug Allergy Active ENCOUNTERS from 1991 to 2020-01-17 Encounter Location Date Provider Diagnosis [facility] [address] [place] [address] Dec, Shaka Herndon Diet controlled gest ational diabetes mellitus (GDM) in third trimester O24.410 ; Gestational edema, third trimester O12.03 and 28 weeks gestation of Z3A.28 IMMUNIZATIONS Vaccine Route Administration Date Status Influenza [...] FOR REFERRAL No Information VITAL SIGNS Weight 199 lbs Dec, Height 61 in Dec, BMI 37.601 kg/m2 Dec, Blood pressure systolic 108 mm Hg Dec, Blood pressure diastolic 62 mm Hg Dec, MEDICATIONS Medication SIG (Take, Route, Frequency, Duration) Notes Start Da te End Date Status Alcohol Pads 70 % as directed topical up to 4 times per day Dec, Active MiraLax - 1 packet mixed with 8 ounces of fluid Orally Once a day Active 28-0.8 MG 1 tablet Orally Once a day Active Excedrin Tension Headache 500-65 MG 2 tablets as neede d Orally Three times a day Active Lancets - as directed 4 times per day Dec, Active Contour Blood Glucose System w/Device as directed Dec, Active Test Strips - to test 4 times per day Dec, Active Esgic 50-325-40 MG 1 tablet as needed Orally every 4 hrs for 30 days Nov, Active PROCEDURES No Information RESULTS No Results REASON FOR VISIT swelling MEDICAL (GENERAL) HISTORY Type Description Date Medical History migraine headaches Surgical History gall bladder Surgical History gallstones Surgical History wisdom teeth Surgical History tonsillectomy Hospitalization History gallbladder Hospitalization History migraines Goals Section No Information Health Concerns No Information MEDICAL EQUIPMENT No Information MENTAL STATUS No Information FUNCTIONAL STATUS No Information ASSESSMENTS Encounter Date Diagnosis Assessment Notes Treatment Notes Treatm ent Clinical Notes Dec, Diet controlled gestational diabetes mellitus (GDM) in third trimester (ICD-10 - O24.410) Dec, Gestational edema, third trimester (ICD-10 - O12 .03) Dec, 28 weeks gestation of (ICD-10 - Z3A.28 ) PLAN OF TREATMENT Next Appt Details 2 Weeks Reason: Provider Name:Gita Ackerman Jefferson 2020-01-26 08:00:00 AM, [address] [place], [address], Follow Up:2 Weeksprenatal Insurance Providers Payer Name Payer Address Payer Phone Insured Name Patient Relati onship to Insured Coverage Start Date Coverage End Date [employer] DEPT [address] [facility] [phone] LOPERFIDO,XAVIER REENEE self MEDICAID [employer] [address] [facility] [id number] LOPERFIDO,XAVIER REENEE self
--- OUTSIDE RECORDS SUMMARY | 2020-03-09 01:49 | CCD ---
Author Author [facility] Organization [facility] Address Unknown Phone Unavailable Care Team Providers Care Refinery Operator Gas Plant Name Role Phone Gita Paulino Unavailable PROBLEMS Type Condition ICD9-CM Code OUS28-GX Code Onset Dates Condition S tatus SNOMED Code Notes Problem Supervision of other normal Z34.80 Ac tive [id number] ALLERGIES Allergen (clinical drug ingredient) Drug/Non Drug Allergy do cumented on EMR Reaction Allergy Type Onset Date Status Shell fish Unknown Non Drug Allergy Active Iodine([facility] Code:[address]47-[address]) Anaphylaxis Drug Allergy Active Penicillin Unknown Non Drug Allergy Active ENCOUNTERS from 1991 to 2020-01-28 Encounter Location Date Provider Diagnosis [facility] [place] [address] Jan, Gita Paulino Diet controlled gest ational diabetes mellitus (GDM) in third trimester O24.410 ; 31 weeks gestation of Z3A.31 and False labor before 37 completed weeks of gestation, third trimester O47.03 IMMUNIZATIONS Vaccine Route Administration Date Status Influenza [...] FOR REFERRAL No Information VITAL SIGNS Weight 202.2 lbs Jan, Height 61 in Jan, BMI 38.205 kg/m2 Jan, Blood pressure systolic 112 mm Hg Jan, Blood pressure diastolic 70 mm Hg Jan, MEDICATIONS Medication SIG (Take, Route, Frequency, Duration) Notes Start Da te End Date Status Excedrin Tension Headache 500-65 MG 2 tablets as neede d Orally Three times a day Active Contour Blood Glucose System w/Device as directed Dec, Active Lancets - as directed 4 times per day Dec, Active Esgic 50-325-40 MG 1 tablet as needed Orally every 4 hrs for 30 days Nov, Active 28-0.8 MG 1 tablet Orally Once a day Active MiraLax - 1 packet mixed with 8 ounces of fluid Orally Once a day Active Test Strips - to test 4 times per day Dec, Active Alcohol Pads 70 % as directed topical up to 4 times per day Dec, Active PROCEDURES No Information RESULTS No Results REASON FOR VISIT 6-8 week follow up MEDICAL (GENERAL) HISTORY Type Description Date Medical [...] in third trimester (ICD-10 - O24.410) Jan, 31 weeks gestation of (ICD-10 - Z3A.31 ) Jan, False labor before 37 comple malachi weeks of gestation, third trimester (ICD-10 - O47.03) PLAN OF TREATMENT Next Appt Details 2 Weeks Reason: Provider Name:Cori Be, 2020-01 09:40:00 AM, [address] [place], [address], Follow Up:2 WeeksPrenatal Insurance Providers Payer Name Payer Address Payer Phone Insured Name Patient Relati onship to Insured Coverage Start Date Coverage End Date [employer] DEPT [address] COUNTS INCLUDE 234 BEDS AT [facility] [phone] LOPERFIDO,XAVIER REENEE self MEDICAID [employer] [address] [facility] [id number] LOPERFIDO,XAVIER REENEE self
--- OUTSIDE RECORDS SUMMARY | 2020-03-09 01:50 | CCD ---
Author Author [facility] Organization [facility] Address Unknown Phone Unavailable Care Team Providers Care Platen Drier Operator Name Role Phone Gita Paulino Unavailable PROBLEMS Type Condition ICD9-CM Code AOR31-UD Code Onset Dates Condition S tatus SNOMED Code Notes Problem Supervision of other normal Z34.80 Ac tive 398909776 ALLERGIES Allergen (clinical drug ingredient) Drug/Non Drug Allergy do cumented on EMR Reaction Allergy Type Onset Date Status Shell fish Unknown Non Drug Allergy Active Iodine([facility] Code:16807-43075) Anaphylaxis Drug Allergy Active Penicillin Unknown Non Drug Allergy Active ENCOUNTERS from 1991 to 2019-12-23 Encounter Location Date Provider Diagnosis [facility] [address] [place] [address] Nov, Gita Jefferson Diseases of the nerv ous system complicating , second trimester O99.352 ; Other migraine without status migrainosus, not intractable G43.809 ; 22 weeks gestation of Z3A.22 and Encounter for immunization Z23 IMMUNIZATIONS Vaccine Route Administration Date Status Influenza [...] FOR REFERRAL No Information VITAL SIGNS Weight 187.4 lbs Nov, Height 61 in Nov, BMI 35.409 kg/m2 Nov, Blood pressure systolic 108 mm Hg Nov, Blood pressure diastolic 70 mm Hg Nov, MEDICATIONS Medication SIG (Take, Route, Frequency, Duration) Start Date En d Date Status 28-0.8 MG 1 tablet Orally Once a day Active MiraLax - 1 packet mixed with 8 ounces of fluid Orally Once a da y Active Excedrin Tension Headache 500-65 MG 2 tablets as neede d Orally Three times a day Active Esgic 50-325-40 MG 1 tablet as needed Orally every 4 hrs fo r 30 days Nov, Active PROCEDURES Procedure Date Ordered Result Body Site Immunization: Fluzone (6mo & older) 0.5mL IM (Influenza) 2019-11 N/A RESULTS Component Value Reference Range WW OBS FOLLOW UP OR REPEAT Reviewed date:12/19/2019 14:12:00 Interpretation: Performing Lab:[facility] ,[place] [address] Type and Screen (D Rh Antibody Screen) Reviewed date:12/21/2019 18:33:17 Interpretation: Performing Lab:[facility] [address] [facility] [address] , ,[place] [address] BLOOD TYPE B POSITIVE AB SCREEN (INDIRECT FLORIAN)VIS NEGATIVE CBC - Complete Blood Count Reviewed date:12/21/2019 18:33:09 Interpretation: Performing Lab:[facility] [address] [facility] [address] , ,[place] [address] WHITE BLOOD COUNT 8.6 4.0-10.0 RED BLOOD COUNT 3.73 4.00-5.40 HEMOGLOBIN 11.3 12.0-15.5 HEMATOCRIT 34.7 36.0-47.0 MEAN CORPUSCULAR VOLUME 93.0 80.0-96.0 MEAN CORPUSCULAR HEMOGLOBIN 30.3 27.0-33.0 MEAN CORPUSCULAR HGB CONC 32.6 32.0-36.5 RED CELL DISTRIBUTION WIDTH 13.3 11.5-14.5 PLATELET COUNT, AUTOMATED 322 150-450 Glucose Challenge Test 1 Hour Reviewed date:12/21/2019 18:35:19 Interpretation: Performing Lab:[facility] [address] [place] [id number] , ,[place] [address] GLUCOSE CHALLENGE TEST 1 HOUR 169 LESS THAN 140 REASON FOR VISIT 4 WK PN MEDICAL (GENERAL) HISTORY Type Description Date Medical History migraine headaches Surgical History gall bladder Surgical History gallstones Surgical History wisdom teeth Surgical History tonsillectomy Hospitalization History gallbladder Hospitalization History migraines Goals Section No Information Health Concerns No Information MEDICAL EQUIPMENT No Information MENTAL STATUS No Information FUNCTIONAL STATUS No Information ASSESSMENTS Encounter Date Diagnosis Notes Nov, Encounter for immunization (ICD-10 - Z23 ) Nov, 22 weeks gestation of (ICD-10 - Z3A.22) Nov, Other migraine without statu s migrainosus, not intractable (ICD-10 - G43.809) Nov, Diseases of the nervous syst em complicating , second trimester (ICD-10 - O99.352) PLAN OF TREATMENT Medication Medication Name Sig Start Date Stop Date Esgic 50-325-40 MG 1 tablet as needed Orally every 4 hrs fo r 30 days Nov, Next Appt Details 4 Weeks Reason: Provider Name:Gita Paulino, 2020-01-26 08:00:00 AM, [address] [place], [address], Follow Up:4 Weeksprenatal Insurance Providers Payer Name Payer Address Payer Phone Insured Name Patient Relati onship to Insured Coverage Start Date Coverage End Date [facility] [employer] CLAIMS DEPT [address] [facility] [phone] LOPERFIDO,XAVIER REENEE self MEDICAID [employer] [address] [facility] [id number] LOPERFIDO,XAVIER REENEE self
--- OUTSIDE RECORDS SUMMARY | 2020-03-09 01:50 | CCD ---
Author Author [facility] Organization [facility] Address Unknown Phone Unavailable Care Team Providers Care Security Ambassador Name Role Phone Simone, A Celeste HYDROGENATION STILL OPERATOR Unavailable Unavailable Alden, A Celeste HYDROGENATION STILL OPERATOR Unavailable Unavailable Alden, A Celeste HYDROGENATION STILL OPERATOR Unavailable Unavailable Alden, A Celeste HYDROGENATION STILL OPERATOR Unavailable Unavailable Alden, A Celeste HYDROGENATION STILL OPERATOR Unavailable Unavailable Alden, A Celeste HYDROGENATION STILL OPERATOR Unavailable Unavailable Alden, A Celeste HYDROGENATION STILL OPERATOR Unavailable Unavailable Alden, A Celeste HYDROGENATION STILL OPERATOR Unavailable Unavailable Simone, A Celeste HYDROGENATION STILL OPERATOR Unavailable Unavailable Simone, A Celeste HYDROGENATION STILL OPERATOR Unavailable Unavailable Simone, A Celeste HYDROGENATION STILL OPERATOR Unavailable Unavailable Simone, A Celeste HYDROGENATION STILL OPERATOR Unavailable Unavailable Simone, A Celeste HYDROGENATION STILL OPERATOR Unavailable Unavailable Simone, A Celeste HYDROGENATION STILL OPERATOR Unavailable Unavailable Simone, A Celeste HYDROGENATION STILL OPERATOR Unavailable Unavailable Simone, A Celeste HYDROGENATION STILL OPERATOR Unavailable Unavailable Simone, A Celeste HYDROGENATION STILL OPERATOR Unavailable Unavailable Simone, A Celeste HYDROGENATION STILL OPERATOR Unavailable Unavailable Simone, A Celeste HYDROGENATION STILL OPERATOR Unavailable Unavailable Simone, A Celeste HYDROGENATION STILL OPERATOR Unavailable Unavailable Simone, A Celeste HYDROGENATION STILL OPERATOR Unavailable Unavailable Simone, A Celeste HYDROGENATION STILL OPERATOR Unavailable Unavailable Simone, A Celeste HYDROGENATION STILL OPERATOR Unavailable Unavailable Simone, A Celeste HYDROGENATION STILL OPERATOR Unavailable Unavailable Matt Nichols Celeste HYDROGENATION STILL OPERATOR Unavailable Unavailable Simone A Celeste HYDROGENATION STILL OPERATOR Unavailable Unavailable Simone A Celeste HYDROGENATION STILL OPERATOR Unavailable Unavailable Trickey, J Felisha PA Unavailable Unavailable Trickey, J Felisha PA Unavailable Unavailable Trickey, J Felisha PA Unavailable Unavailable Trickey, J Felisha PA Unavailable Unavailable Trickey, J Felisha PA Unavailable Unavailable Trickey, J Felisha PA Unavailable Unavailable Trickey, J Felisha PA Unavailable Unavailable Trickey, J Felisha PA Unavailable Unavailable Trickey, J Felisha PA Unavailable Unavailable Trickey, J Felisha PA Unavailable Unavailable Trickey, J Felisha PA Unavailable Unavailable Trickey, J Felisha PA Unavailable Unavailable Trickey, J Felisha PA Unavailable Unavailable Trickey, J Felisha PA Unavailable Unavailable Trickey, J Felisha PA Unavailable Unavailable Trickey, J Felisha PA Unavailable Unavailable Trickey, J Felisha PA Unavailable Unavailable Trickey, J Felisha PA Unavailable Unavailable Trickey, J Felisha PA Unavailable Unavailable Trickey, J Felisha PA Unavailable Unavailable Trickey, J Felisha PA Unavailable Unavailable Trickey, J Felisha PA Unavailable Unavailable Trickey, J Felisha PA Unavailable Unavailable Trickey, J Felisha PA Unavailable Unavailable Trickey, J Felisha PA Unavailable Unavailable Trickey, J Felisha PA Unavailable Unavailable Trickey, J Felisha PA Unavailable Unavailable Trickey, J Felisha PA Unavailable Unavailable Trickey, J Felisha PA Unavailable Unavailable Trickey, J Felisha PA Unavailable Unavailable Trickey, J Felisha PA Unavailable Unavailable Trickey, J Felisha PA Unavailable Unavailable Trickey, J Felisha PA Unavailable Unavailable Trickey, J Felisha PA Unavailable Unavailable Trickey, J Felisha PA Unavailable Unavailable Trickey, J Felisha PA Unavailable Unavailable Trickey, J Felisha PA Unavailable Unavailable Trickey, J Felisha PA Unavailable Unavailable Trickey, J Felisha PA Unavailable Unavailable Trickey, J Felisha PA Unavailable Unavailable Trickey, J Felisha PA Unavailable Unavailable Trickey, J Felisha PA Unavailable Unavailable Trickey, J Felisha PA Unavailable Unavailable Trickey, J Felisha PA Unavailable Unavailable Trickey, J Felisha PA Unavailable Unavailable Trickey, J Felisha PA Unavailable Unavailable Trickey, J Felisha PA Unavailable Unavailable Trickey, J Felisha PA Unavailable Unavailable Trickey, J Felisha PA Unavailable Unavailable Trickey, J Felisha PA Unavailable Unavailable Trickey, J Felisha PA Unavailable Unavailable Trickey, J Felisha PA Unavailable Unavailable CALZOLAIO, L AKIRA ANDERSON Unavailable Unavailable CALZOLAIO, L AKIRA ANDERSON Unavailable Unavailable CALZOLAIO, L AKIRA MD Unavailable Unavailable CALZOLAIO, L AKIRA MD Unavailable Unavailable CALZOLAIO, L AKIRA MD Unavailable Unavailable CALZOLAIO, L AKIRA MD Unavailable Unavailable CALZOLAIO, L AKIRA MD Unavailable Unavailable CALZOLAIO, L AKIRA MD Unavailable Unavailable CALZOLAIO, L AKIRA MD Unavailable Unavailable CALZOLAIO, L AKIRA MD Unavailable Unavailable CALZOLAIO, L AKIRA MD Unavailable Unavailable CALZOLAIO, L AKIRA MD Unavailable Unavailable CALZOLAIO, L AKIRA MD Unavailable Unavailable CALZOLAIO, L AKIRA MD Unavailable Unavailable CALZOLAIO, L AKIRA MD Unavailable Unavailable CALZOLAIO, L AKIRA MD Unavailable Unavailable CALZOLAIO, L AKIRA MD Unavailable Unavailable CALZOLAIO, L AKIRA MD Unavailable Unavailable CALZOLAIO, L AKIRA ANDERSON Unavailable Unavailable CALZOLAIO, L AKIRA MD Unavailable Unavailable CALZOLAIO, L AKIRA MD Unavailable Unavailable CALZOLAIO, L AKIRA ANDERSON Unavailable Unavailable CALZOLAIO, L AKIRA ANDERSON Unavailable Unavailable CALZOLAIO, L AKIRA ANDERSON Unavailable Unavailable CALZOLAIO, L AKIRA ANDERSON Unavailable Unavailable Celeste Nichols HYDROGENATION STILL OPERATOR HYDROGENATION STILL OPERATOR Unavailable Unavailable Re-disclosure Warning The records that you are about to access may contain information from federally-assisted alcohol or drug abuse programs. If such information is present, then the following federally mandated warning applies: This information has been disclosed to you from records protected by federal confidentiality rules (42 CFR part 2). The federal rules prohibit you from making any further disclosure of this information unless further disclosure is expressly permitted by the written consent of the person to whom it pertains or as otherwise permitted by 42 CFR part 2. A general authorization for the release of medical or other information is NOT sufficient for this purpose. The Federal rules restrict any use of the information to criminally investigate or prosecute any alcohol or drug abuse patient.The records that you are about to access may contain highly sensitive health information, the redisclosure of which is protected by Article 27-F of the [place] Public Health law. If you continue you may have access to information: Regarding HIV / AIDS; Provided by facilities licensed or operated by the [facility] of Mental Health; or Provided by the [facility] for People With Developmental Disabilities. If such information is present, then the following [facility] mandated warning applies: This information has been disclosed to you from confidential records which are protected by state law. State law prohibits you from making any further disclosure of this information without the specific written consent of the person to whom it pertains, or as otherwise permitted by law. Any unauthorized further disclosure in violation of state law may result in a fine or assisted sentence or both. A general authorization for the release of medical or other information is NOT sufficient authorization for further disc losure. Allergies and Adverse Reactions Type Description Substance Reaction Status Data Source(s ) Drug allergy PENICILLIN PENICILLIN [facility] Miscellaneous allergy CONTRAST DYE CONTRAST DYE [facility] Drug allergy IODINE IODINE [facility] Food allergy SHELLFISH SHELLFISH [facility] Family History Family Member Name Family Member Gender Family Member Status Date o f Status Description Data Source(s) Unknown Unknown Problem MEDENT ([facility]) Unknown Male Problem MEDENT ([facility]) Encounters Encounter Providers Location Date Indications Data Source(s ) ( COB) [facility] Complicated OB [address] [place] [address] 03/01/2020 12:00:00 AM EST eCW1 ([facility]) ( COB) [facility] [address] [place] [address] 02/16/2020 12:00:00 AM EST eCW1 ([facility]) ( ESTOB) [facility] Est OB [address] [place] [address] 02/09/2020 12:00:00 AM EST eCW1 ([facility]) Outpatient Attender: Felisha CALLE Main office - [facility] 02/03/2020 07:00:00 AM EST MEDENT ([facility]) ( COB) [facility] Complicated OB [address] [place] [address] 01/26/2020 12:00:00 AM EST eCW1 ([facility]) ( ESTOB) [facility] Est OB [address] [place] [address] 01/05/2020 12:00:00 AM EST eCW1 ([facility]) Unknown [address] [facility] [place] [address] 12/29/2019 12:00:00 AM EST eCW1 ([facility]) Unknown [address] [facility] [address] 12/21/2019 12:00:00 AM EDT eCW1 ([facility]) (WC ESTOB) [facility] [address] [place] [address] 11/26/2019 12:00:00 AM EDT eCW1 ([facility]) Outpatient Attender: Felisha CALLE Main office [facility] 10/27/2019 09:45:00 AM EDT MEDENT ([facility] ) Outpatient Attender: VONNIE FARFAN 08/04/2019 10:00:01 A M EDT [facility] Outpatient Attender: VONNIE FARFAN 08/01/2019 03:38:01 P M EDT [facility] Outpatient Attender: Celeste FARFAN 08/01/2019 03:3 8:00 PM EDT [facility] Outpatient Attender: VONNIE FARFAN 08/01/2019 03:37:59 P M EDT [facility] Outpatient Attender: VONNIE FARFAN 07/29/2019 09:57:00 A M EDT [facility] Outpatient Attender: Celeste FARFAN 07/29/2019 09:0 9:00 AM EDT [facility] Outpatient Attender: Celeste FARFAN 07/29/2019 09:0 6:01 AM EDT [facility] Outpatient Attender: Celeste FARFAN 07/29/2019 09:0 5:01 AM EDT [facility] Outpatient Attender: VONNIE FARFAN 07/29/2019 09:05:00 A M EDT [facility] Outpatient Attender: Celeste FARFAN 07/29/2019 09:0 3:02 AM EDT [facility] Outpatient Attender: VONNIE FARFAN 07/29/2019 09:03:01 A M EDT [facility] Outpatient Attender: VONNIE EASONP FP 07/29/2019 09:02:02 A M EDT [facility] Outpatient Attender: Celeste SHANKAR FP 07/29/2019 09:0 2:01 AM EDT [facility] Outpatient Attender: Celeste Simone SHANKAR FP 07/29/2019 09:0 0:04 AM EDT [facility] Outpatient Attender: VONNIE EASONP FP 07/29/2019 08:57:00 A M EDT [facility] Outpatient Attender: VONNIE EASONP FP 07/29/2019 08:54:02 A M EDT [facility] Outpatient Attender: Felisha CALLE Main office - [facility] 07/28/2019 09:30:00 AM EDT MEDENT ([facility] ) Outpatient Attender: VONNIE EASONP FP 07/23/2019 09:43:00 A M EDT [facility] Outpatient Attender: Celeste EASONP FP 07/19/2019 08:2 2:01 PM EDT [facility] Outpatient Attender: VONNIE EASONP FP 07/15/2019 02:54:00 P M EDT [facility] Outpatient Attender: VONNIE EASONP FP 07/14/2019 09:50:38 A M EDT [facility] Outpatient Attender: VONNIE SHANKAR FP 07/13/2019 01:01:01 P M EDT [facility] Outpatient Attender: VONNIE EASONP FP 07/13/2019 01:00:00 P M EDT [facility] Outpatient Attender: VONNIE EASONP FP 07/13/2019 12:59:00 P M EDT [facility] Outpatient Attender: VONNIE EASONP FP 07/13/2019 12:14:01 P M EDT [facility] Outpatient Attender: VONNIE EASONP FP 07/13/2019 11:19:00 A M EDT [facility] Outpatient Attender: VONNIE EASONP FP 07/13/2019 11:15:01 A M EDT [facility] Outpatient Attender: VONNIE EASONP FP 07/13/2019 11:14:01 A M EDT [facility] Outpatient Attender: VONNIE SHANKAR FP 07/12/2019 09:08:00 A M EDT [facility] Outpatient 04/29/2019 03:17:00 PM EST [facility] Outpatient Attender: AKIRA Ackerman DAdmitter: AKIRA LARSON MDConsultant: AKIRA LARSON MD OUTPATIENT-MEDENT 12/29/2018 05:28:00 PM EST - 12/29/2018 11:59:00 PM EST [facility] Patient discharged. Immunizations Vaccine Date Status Description Data Source(s) Tdap 02/16/2020 08:58:00 AM EST completed e CW1 ([facility]) Tdap 02/16/2020 08:58:00 AM EST completed e CW1 ([facility]) New in 2011. IIV4 11/26/2019 11:31:00 AM EDT completed eCW1 ([facility]) New in 2011. IIV4 11/26/2019 11:31:00 AM EDT completed eCW1 ([facility]) New in 2011. IIV4 11/26/2019 11:31:00 AM EDT completed eCW1 ([facility]) New in 2011. IIV4 11/26/2019 11:31:00 AM EDT completed eCW1 ([facility]) New in 2011. IIV4 11/26/2019 11:31:00 AM EDT completed eCW1 ([facility]) New in 2011. IIV4 11/26/2019 11:31:00 AM EDT completed eCW1 ([facility]) New in 2011. IIV4 11/26/2019 11:31:00 AM EDT completed eCW1 ([facility]) New in 2011. IIV4 11/26/2019 11:31:00 AM EDT completed eCW1 ([facility]) Medications Medication Brand Name Start Date Product Form Dose Route Admi nistrative Instructions Pharmacy Instructions Status Indications Reaction Description Data Source(s) BLOOD SUGAR DIAGNOSTIC 12/30/2019 12:00:00 AM EST strip 100 USE TO TEST FOUR TIMES A DAY USE TO TEST FOUR TIMES A DAY SOLD: 01/27/2020 [facility] BLOOD SUGAR DIAGNOSTIC 12/30/2019 12:00:00 AM EST strip 100 USE TO TEST FOUR TIMES A DAY USE TO TEST FOUR TIMES A DAY SOLD: 03/01/2020 [facility] Test Strips - UNK 12/29/2019 12:00:00 AM EST acti ve Test Strips - eCW1 ([facility]) Alcohol Pads 70 % Alcohol Pads 70 % 12/29/2019 12:00:00 AM EST active Alcohol Pads 70 % eCW1 ([facility]) Contour Blood Glucose System w/Device Contour Blood Glucose System w/Device 12/29/2019 12:00:00 AM EST active Contour Blood Glucose System w/Device eCW1 ([facility]) Lancets - Lancets - 12/29/2019 12:00:00 AM EST act marga Lancets - eCW1 ([facility]) Lancets - Lancets - 12/29/2019 12:00:00 AM EST act marga Lancets - eCW1 ([facility]) Lancets - Lancets - 12/29/2019 12:00:00 AM EST act marga Lancets - eCW1 ([facility]) Alcohol Pads 70 % Alcohol Pads 70 % 12/29/2019 12:00:00 AM EST active Alcohol Pads 70 % eCW1 ([facility]) Contour Blood Glucose System w/Device Contour Blood Glucose System w/Device 12/29/2019 12:00:00 AM EST active Contour Blood Glucose System w/Device eCW1 ([facility]) Test Strips - UNK 12/29/2019 12:00:00 AM EST acti ve Test Strips - eCW1 ([facility]) Contour Blood Glucose System w/Device Contour Blood Glucose System w/Device 12/29/2019 12:00:00 AM EST active Contour Blood Glucose System w/Device eCW1 ([facility]) Test Strips - UNK 12/29/2019 12:00:00 AM EST acti ve Test Strips - eCW1 ([facility]) Contour Blood Glucose System w/Device Contour Blood Glucose System w/Device 12/29/2019 12:00:00 AM EST active Contour Blood Glucose System w/Device eCW1 ([facility]) Test Strips - UNK 12/29/2019 12:00:00 AM EST acti ve Test Strips - eCW1 ([facility]) Test Strips - UNK 12/29/2019 12:00:00 AM EST acti ve Test Strips - eCW1 ([facility]) ALCOHOL ANTISEPTIC PADS 12/29/2019 12:00:00 AM EST pads, med icated 100 USE FOUR TIMES A DAY DIRECTED USE FOUR TIMES A DAY DIRECTED SOLD: 12/30/2019 [facility] Lancets - Lancets - 12/29/2019 12:00:00 AM EST act marga Lancets - eCW1 ([facility]) ALCOHOL ANTISEPTIC PADS 12/29/2019 12:00:00 AM EST pads, med icated 100 USE FOUR TIMES A DAY DIRECTED USE FOUR TIMES A DAY DIRECTED SOLD: 01/27/2020 [facility] Lancets - Lancets - 12/29/2019 12:00:00 AM EST act marga Lancets - eCW1 ([facility]) Alcohol Pads 70 % Alcohol Pads 70 % 12/29/2019 12:00:00 AM EST active Alcohol Pads 70 % eCW1 ([facility]) Contour Blood Glucose System w/Device Contour Blood Glucose System w/Device 12/29/2019 12:00:00 AM EST active Contour Blood Glucose System w/Device eCW1 ([facility]) Test Strips - UNK 12/29/2019 12:00:00 AM EST acti ve Test Strips - eCW1 ([facility]) Alcohol Pads 70 % Alcohol Pads 70 % 12/29/2019 12:00:00 AM EST active Alcohol Pads 70 % eCW1 ([facility]) Alcohol Pads 70 % Alcohol Pads 70 % 12/29/2019 12:00:00 AM EST active Alcohol Pads 70 % eCW1 ([facility]) Contour Blood Glucose System w/Device Contour Blood Glucose System w/Device 12/29/2019 12:00:00 AM EST active Contour Blood Glucose System w/Device eCW1 ([facility]) Lancets - Lancets - 12/29/2019 12:00:00 AM EST act marga Lancets - eCW1 ([facility]) Alcohol Pads 70 % Alcohol Pads 70 % 12/29/2019 12:00:00 AM EST active Alcohol Pads 70 % eCW1 ([facility]) Acetaminophen 325 MG / butalbital 50 MG / Caffeine 40 MG Oral Tablet [Esgic] Esgic 50-325-40 MG [facility] 50-325-40 MG 12/21/2019 12:00:00 AM EDT 1.0 {tablet_as_needed} active Esgic 50-325- 40 MG eCW1 ([facility]) Acetaminophen 325 MG / butalbital 50 MG / Caffeine 40 MG Oral Tablet [Esgic] Esgic 50-325-40 MG [facility]ic 50-325-40 MG 12/21/2019 12:00:00 AM EDT 1.0 {tablet_as_needed} active Esgic 50-325- 40 MG eCW1 ([facility]) Acetaminophen 325 MG / butalbital 50 MG / Caffeine 40 MG Oral Tablet [Esgic] Esgic 50-325-40 MG [facility] 50-325-40 MG 12/21/2019 12:00:00 AM EDT 1.0 {tablet_as_needed} active Esgic 50-325- 40 MG eCW1 ([facility]) Acetaminophen 325 MG / butalbital 50 MG / Caffeine 40 MG Oral Tablet [Esgic] Esgic 50-325-40 MG [facility] 50-325-40 MG 12/21/2019 12:00:00 AM EDT 1.0 {tablet_as_needed} active Esgic 50-325- 40 MG eCW1 ([facility]) Acetaminophen 325 MG / butalbital 50 MG / Caffeine 40 MG Oral Tablet [Esgic] Esgic 50-325-40 MG [facility] 50-325-40 MG 12/21/2019 12:00:00 AM EDT 1.0 {tablet_as_needed} active Esgic 50-325- 40 MG eCW1 ([facility]) Acetaminophen 325 MG / butalbital 50 MG / Caffeine 40 MG Oral Tablet [Esgic] Esgic 50-325-40 MG [facility] 50-325-40 MG 12/21/2019 12:00:00 AM EDT 1.0 {tablet_as_needed} active Esgic 50-325- 40 MG eCW1 ([facility]) Acetaminophen 325 MG / butalbital 50 MG / Caffeine 40 MG Oral Tablet [Esgic] Esgic 50-325-40 MG [facility] 50-325-40 MG 12/21/2019 12:00:00 AM EDT 1.0 {tablet_as_needed} active Esgic 50-325- 40 MG eCW1 ([facility]) Acetaminophen 325 MG / butalbital 50 MG / Caffeine 40 MG Oral Tablet [Esgic] Esgic 50-325-40 MG [facility] 50-325-40 MG 12/21/2019 12:00:00 AM EDT 1.0 {tablet_as_needed} active Esgic 50-325- 40 MG eCW1 ([facility]) 50-325-40 mg 12/21/2019 12:00:00 AM EDT tablet 30 TAKE ONE TABLET BY MOUTH EVERY 4 HOURS NEEDED TAKE ONE TABLET BY MOUTH EVERY 4 HOURS NEEDED SOLD: 12/30/2019 [facility] 50-325-40 mg 10/28/2019 12:00:00 AM EDT tablet 30 TAKE ONE TABLET BY MOUTH EVERY 4 TO 6 HOURS TAKE ONE TABLET BY MOUTH EVERY 4 TO 6 HOURS SOLD: 10/30/2019 [facility] 27 mg iron- 1 mg 08/02/2019 12:00:00 AM EDT tablet 30 TAKE ONE TABLET BY MOUTH EVERY DAY TAKE ONE TABLET BY MOUTH EVERY DAY SOLD: 09/07/2019 [facility] 27 mg iron- 1 mg 08/02/2019 12:00:00 AM EDT tablet 30 TAKE ONE TABLET BY MOUTH EVERY DAY TAKE ONE TABLET BY MOUTH EVERY DAY SOLD: 08/05/2019 [facility] 27 mg iron- 1 mg 08/02/2019 12:00:00 AM EDT tablet 30 TAKE ONE TABLET BY MOUTH EVERY DAY TAKE ONE TABLET BY MOUTH EVERY DAY SOLD: 11/17/2019 [facility] 27 mg iron- 1 mg 08/02/2019 12:00:00 AM EDT tablet 30 TAKE ONE TABLET BY MOUTH EVERY DAY TAKE ONE TABLET BY MOUTH EVERY DAY SOLD: 10/13/2019 [facility] 27 mg iron- 1 mg 08/02/2019 12:00:00 AM EDT tablet 30 TAKE ONE TABLET BY MOUTH EVERY DAY TAKE ONE TABLET BY MOUTH EVERY DAY SOLD: 12/30/2019 [facility] 27 mg iron- 1 mg 08/02/2019 12:00:00 AM EDT tablet 30 TAKE ONE TABLET BY MOUTH EVERY DAY TAKE ONE TABLET BY MOUTH EVERY DAY SOLD: 01/27/2020 [facility] topiramate 50 MG Oral Tablet [Topamax] Topamax 07/28/2019 12:00:00 AM EDT ORAL completed MEDENT ([facility]) 100 mg 07/28/2019 12:00:00 AM EDT tablet 30 TAKE ONE TABLET BY MOUTH EVERY DAY AT BEDTIME TAKE ONE TABLET BY MOUTH EVERY DAY AT BEDTIME SOLD: 07/28/2019 [facility] 100 mg 07/28/2019 12:00:00 AM EDT tablet 9 TAKE 1/2 TO 1 TABLET BY MOUTH ONCE DAILY AT ONSET OF HEADACHE, MAY REPEAT ONCE IN 2 HOURS NEEDED, MAXIMUM DAILY DOSE = TWO TABLETS TAKE 1/2 TO 1 TABLET BY MOUTH ONCE DAILY AT ONSET OF HEADACHE, MAY REPEAT ONCE IN 2 HOURS NEEDED, MAXIMUM DAILY DOSE = TWO TABLETS SOLD: 07/28/2019 [facility] 50 mg 07/28/2019 12:00:00 AM EDT tablet 30 TAKE ONE TABLET BY MOUTH EVERY DAY AT BEDTIME ALONG WITH 100MG TAKE ONE TABLET BY MOUTH EVERY DAY AT BE DTIME ALONG WITH 100MG SOLD: 07/28/2019 [facility] 100 mg 06/21/2019 12:00:00 AM EDT tablet 30 TAKE ONE TABLET BY MOUTH AT BEDTIME TAKE ONE TABLET BY MOUTH AT BEDTIME SOLD: 06/23/2019 [facility] Sumatriptan 100 MG Oral Tablet Sumatriptan Succinate 05/25/2019 12:00:00 AM EDT ORAL completed MEDENT ([facility]) Ondansetron 4 MG Disintegrating Oral Tablet Ondansetron 05/25/2019 12:00:00 AM EDT ORAL active MEDENT ([facility]) topiramate 100 MG Oral Tablet Topiramate 05/25/2019 12:00:00 AM EDT ORAL completed MEDENT ([facility]) 250-250-65 mg 05/11/2019 12:00:00 AM EDT tablet 14 TAKE TWO TABLETS BY MOUTH EVERY DAY NEEDED FOR 7 DAYS TAKE TWO TABLETS BY MOUTH EVERY DAY N EEDED FOR 7 DAYS SOLD: 05/11/2019 [facility] 50 mg 05/10/2019 12:00:00 AM EDT tablet 15 TAKE ONE TABLET BY MOUTH EVERY EVENING FOR 15 DAYS TAKE ONE TABLET BY MOUTH EVERY EVENING FOR 15 DAYS BALBIR [facility] 50 mg 04/28/2019 12:00:00 AM EST tablet 15 TAKE ONE TABLET BY MOUTH AT BEDTIME TAKE ONE TABLET BY MOUTH AT BEDTIME SOLD: 04/28/2019 [facility] 137 mcg (0.1 %) 04/26/2019 12:00:00 AM EST aerosol,spray 30 SPRAY ONE SPRAY IN ONE NOSTRIL TWICE A DAY FOR 7 DAYS SPRAY ONE SPRAY IN ONE NOSTRIL TWICE A D AY FOR 7 DAYS SOLD: 04/26/2019 [facility] 6.25-15 mg/5 mL 04/26/2019 12:00:00 AM EST syrup 75 TAKE 5ML BY MOUTH THREE TIMES A DAY NEEDED FOR COUGH FOR 5 DAYS TAKE 5ML BY MOUTH THREE TIMES A DAY NEEDED FOR COUGH FOR 5 DAYS SOLD: 04/26/2019 [facility] 100 mg 04/26/2019 12:00:00 AM EST tablet 20 TAKE ONE TABLET BY MOUTH TWICE A DAY FOR 10 DAYS TAKE ONE TABLET BY MOUTH TWICE A DAY FOR 10 DAYS SOLD: 04/26/2019 [facility] 20 mg 04/21/2019 12:00:00 AM EST tablet 10 TAKE TWO TABLETS BY MOUTH EVERY DAY FOR 5 DAYS TAKE TWO TABLETS BY MOUTH EVERY DAY FOR 5 DAYS SOLD: 020 [facility] benzonatate 200 MG Oral Capsule BENZONATATE 04/21/2019 12:00:00 AM EST capsule 15 TAKE ONE CAPSULE BY MOUTH THREE TIMES A DAY NEEDED FOR 5 DAYS TAKE ONE CAPSULE BY MOUTH THREE TIMES A DAY NEEDED FOR 5 DAYS SOLD: 04/21/2019 [facility] 4 gram 03/18/2019 12:00:00 AM EST powder in packet 30 TAKE 1 PACKET MIXED IN FLUID DIRECTED BY MOUTH IN THE MORNING 2 HOURS APART FROM OTHER MEDICATION TAKE 1 PACKET MIXED IN FLUID DIRECTED BY MOUTH IN THE MORNING 2 HOURS APART FROM OTHER MEDICATION SOLD: 06/23/2019 [facility] 4 gram 03/18/2019 12:00:00 AM EST powder in packet 30 TAKE 1 PACKET MIXED IN FLUID DIRECTED BY MOUTH IN THE MORNING 2 HOURS APART FROM OTHER MEDICATION TAKE 1 PACKET MIXED IN FLUID DIRECTED BY MOUTH IN THE MORNING 2 HOURS APART FROM OTHER MEDICATION SOLD: 03/22/2019 [facility] 4 gram 03/18/2019 12:00:00 AM EST powder in packet 30 TAKE 1 PACKET MIXED IN FLUID DIRECTED BY MOUTH IN THE MORNING 2 HOURS APART FROM OTHER MEDICATION TAKE 1 PACKET MIXED IN FLUID DIRECTED BY MOUTH IN THE MORNING 2 HOURS APART FROM OTHER MEDICATION SOLD: 05/10/2019 [facility] 20 mg 03/15/2019 12:00:00 AM EST tablet 10 TAKE TWO TABLETS BY MOUTH EVERY DAY FOR 5 DAYS TAKE TWO TABLETS BY MOUTH EVERY DAY FOR 5 DAYS SOLD: 020 [facility] benzonatate 200 MG Oral Capsule BENZONATATE 03/15/2019 12:00:00 AM EST capsule 15 TAKE ONE CAPSULE BY MOUTH THREE TIMES A DAY FOR 5 DAYS TAKE ONE CAPSULE BY MOUTH THREE TIMES A DAY FOR 5 DAYS SOLD: 03/16/2019 [facility] 500 mg 02/08/2019 12:00:00 AM EST tablet 30 TAKE ONE TABLET BY MOUTH TWICE A DAY - TAKE WITH FOOD TAKE ONE TABLET BY MOUTH TWICE A DAY - TAKE WITH FOOD SOLD: 02/13/2019 [facility] 750 mg 02/08/2019 12:00:00 AM EST tablet 40 TAKE ONE TABLET BY MOUTH THREE TIMES A DAY TAKE ONE TABLET BY MOUTH THREE TIMES A DAY SOLD: 02/13/2019 [facility] 200 mg 01/27/2019 12:00:00 AM EST tablet 6 TAKE ONE TABLET BY MOUTH THREE TIMES A DAY FOR 2 DAYS TAKE ONE TABLET BY MOUTH THREE TIMES A DAY FOR 2 DAYS SOLD: 01/28/2019 [facility] 100 mg 01/27/2019 12:00:00 AM EST capsule 14 TAKE ONE CAPSULE BY MOUTH TWICE A DAY FOR 7 DAYS TAKE ONE CAPSULE BY MOUTH TWICE A DAY FOR 7 DAYS SOLD: 01/28/2019 [facility] 4 gram 01/15/2019 12:00:00 AM EST powder in packet 30 TAKE 1 PACKET MIXED IN FLUID DIRECTED BY MOUTH IN THE MORNING 2 HOURS APART FROM OTHER MEDICATION TAKE 1 PACKET MIXED IN FLUID DIRECTED BY MOUTH IN THE MORNING 2 HOURS APART FROM OTHER MEDICATION SOLD: 02/13/2019 [facility] 4 gram 01/15/2019 12:00:00 AM EST powder in packet 30 TAKE 1 PACKET MIXED IN FLUID DIRECTED BY MOUTH IN THE MORNING 2 HOURS APART FROM OTHER MEDICATION TAKE 1 PACKET MIXED IN FLUID DIRECTED BY MOUTH IN THE MORNING 2 HOURS APART FROM OTHER MEDICATION SOLD: 01/15/2019 [facility] Insurance Providers Payer name Policy type / Coverage type Policy ID Covered libertarian ID Covered libertarian's relationship to londono Policy [place]o Plan Information ALYSIA [id number] SP [id number] JULIO [id number] SP [id number] [place] [id number] S [id number] Medicaid S [id number] S [id number] Managed Care [place] P [id number] S [id number] Medicaid S [id number] S [id number] Managed Care [place] P [id number] S [id number] Medicaid S UNAVAILABLE S UNAVAILA BLE Self Pay P UNAVAILABLE S [place] BLE [place] [id number] SP [id number] JULIO MMC [id number] Patient is Insured [id number] Medicaid [place] Part B [id number] Self [id number] [place] Managed Medicaid Commercial [id number] Self [id number] Medicaid [place] Medigap Part B [id number] Self [id number] Julio Managed Medicaid Commercial [id number] Self [id number] Medicaid [place] Medigap Part B [id number] Self [id number] [place] Managed Medicaid Commercial [id number] Self [id number] Medicaid Wrap Medigap Part B [id number] Self C [id number] [place] M[facility] Commercial [id number] Self [id number] Medicaid [facility] Medigap Part B [id number] Self [id number] Dentaquest MMC Commercial [id number] Self [id number] Medicaid Wrap Medigap Part B [id number] Self C [id number] Julio MMC Commercial [id number] Self [id number] [employer] [place] Commercial [id number] Self [id number] DENTAQUEST MMC [id number] Patient is Insured [id number] MEDICAID WRAP [id number] Patient is Insured [id number] Medicaid Wrap Medigap Part B [id number] Self C [id number] Julio MMC Commercial [id number] Self [id number] Medicaid [facility] Medigap Part B [id number] Self [id number] Dentaquest MMC Commercial [id number] Self [id number] Medicaid Wrap Medigap Part B [id number] Self C [id number] Julio MMC Commercial [id number] Self [id number] Medicaid Wrap Medigap Part B [id number] Self C [id number] Julio MMC Commercial [id number] Self [id number] Medicaid [facility] Medigap Part B [id number] Self [id number] [employer] MMC Commercial [id number] Self [id number] Medicaid Wrap Medigap Part B [id number] Self C [id number] [place] [facility] Commercial [id number] Self [id number] JULIO CARE DIRECT PCP [id number] Patient is Ins ured [id number] SELF PAY NOT NEEDED Patient is Insured NOT NEEDED [facility] NOTNEEDED Patient i s Insured NOTNEEDED JULIO CARE DIRECT PCP 7 Patient is Insur ed 7 JULIO [facility] [id number] Patient is Insured [id number] Medicaid Wrap Medigap Part B [id number] Self C [id number] Julio MMC Commercial [id number] Self [id number] [facility] [id number] Self [id number] [employer]entaquest MMC Commercial [id number] Self [id number] Medicaid Wrap Medigap Part B [id number] Self C [id number] [place] MMC Commercial [id number] Self [id number] Medicaid [place] Medicaid [id number] Self [id number] Julio Managed Medicaid Commercial [id number] Self [id number] [place] Medicaid F [id number] SELF 7 [id number] Medicaid Wrap Medigap Part B [id number] Self C [id number] [place] [facility] Commercial [id number] Self [id number] Medicaid [facility] Medigap Part B [id number] Self [id number] Medicaid Wrap Medigap Part B [id number] Self C [id number] Julio MMC Commercial [id number] Self [id number] Dentaquest MMC Commercial [id number] Self [id number] Dentaquest MMC Commercial [id number] Self 74 [id number] Medicaid Wrap Medigap Part B [id number] Self C [id number] Julio MMC Commercial [id number] Self [id number] Medicaid [facility] Medigap Part B [id number] Self [id number] Medicaid Wrap Medigap Part B [id number] Self C [id number] [place] M[facility] Commercial [id number] Self [id number] Dentaquest MMC Commercial [id number] Self [id number] Medicaid Wrap Medigap Part B [id number] Self C [id number] Julio MMC Commercial [id number] Self [id number] Medicaid [place] [facility] Medigap Part B [id number] Self [id number] Medicaid Wrap Medigap Part B [id number] Self C [id number] [place] [facility] Commercial [id number] Self [id number] Medicaid [place] Medicaid [id number] Self [id number] Julio Managed Medicaid Commercial [id number] Self [id number] Dentaquest MMC Commercial [id number] Self [id number] Medicaid Wrap Medigap Part B [id number] Self C [id number] Julio [facility] Commercial [id number] Self [id number] Medicaid [place] [facility] Medigap Part B [id number] Self [id number] Medicaid Wrap Medigap Part B [id number] Self C [id number] Julio MMC Commercial [id number] Self [id number] Medicaid [place] Medicaid [id number] Self [id number] Julio Managed Medicaid Commercial [id number] Self [id number] MEDICAID WRAP [id number] Patient is Insured [id number] MEDICAID [facility] [id number] Patient is Insured [id number] Medicaid [place] Medicaid [id number] Self [id number] [place] Managed Medicaid Commercial [id number] Self [id number] Medicaid [place] Medicaid [id number] Self [id number] [place] Managed Medicaid Commercial [id number] Self [id number] Dentaquest MMC Commercial [id number] Self [id number] Medicaid Wrap Medigap Part B [id number] Self C [id number] Julio MMC Commercial [id number] Self [id number] Medicaid [place] [facility] Medigap Part B [id number] Self [id number] Medicaid Wrap Medigap Part B [id number] Self C [id number] [place] [facility] Commercial [id number] Self [id number] Medicaid [place] Medicaid [id number] Self [id number] Julio Managed Medicaid Commercial [id number] Self [id number] Medicaid [place] Medicaid [id number] Self [id number] [place] Managed Medicaid Commercial [id number] Self [id number] Julio Managed Medicaid Commercial [id number] Self [id number] [place] Commercial [id number] Self [id number] Medicaid [place] Medicaid [id number] Self [id number] Julio Managed Medicaid Commercial [id number] Self [id number] [place] Managed Medicaid Commercial [id number] Self [id number] [place] Commercial [id number] Self [id number] Medicaid [place] Medicaid [id number] Self [id number] Julio Managed Medicaid Commercial [id number] Self [id number] [place] Managed Medicaid Commercial [id number] Self [id number] [place] Commercial [id number] Self [id number] Medicaid [place] Medicaid [id number] Self [id number] Julio Managed Medicaid Commercial [id number] Self [id number] Julio Managed Medicaid Commercial [id number] Self [id number] [place] Commercial [id number] Self [id number] Medicaid [place] Medicaid [id number] Self [id number] [place] Managed Medicaid Commercial [id number] Self [id number] Julio Managed Medicaid Commercial [id number] Self [id number] [place] Commercial [id number] Self [id number] Medicaid [place] Medicaid [id number] Self [id number] [place] Managed Medicaid Commercial [id number] Self [id number] Julio Managed Medicaid Commercial [id number] Self [id number] Medicaid [place] Medicaid [id number] Self [id number] [place] Commercial [id number] Self [id number] [place] Managed Medicaid Commercial [id number] Self [id number] Julio Managed Medicaid Commercial [id number] Self [id number] Medicaid [place] Medicaid [id number] Self [id number] [place] Commercial [id number] Self [id number] Julio Managed Medicaid Commercial [id number] Self [id number] Lifetime Benefit Solution Commercial [id number] Family Depend ent [id number] [place] Managed Medicaid Commercial [id number] Self [id number] Medicaid [place] Medicaid [id number] Self [id number] [place] Commercial [id number] Self [id number] [place] Managed Medicaid Commercial [id number] Self [id number] Lifetime Benefit Solution Commercial [id number] Family Depend ent [id number] Julio Managed Medicaid Commercial [id number] Self [id number] Medicaid [place] Medicaid [id number] Self [id number] [place] Commercial [id number] Self [id number] [place] Managed Medicaid Commercial [id number] Self [id number] Dentaquest MMC Commercial [id number] Self 74 [id number] Medicaid Wrap Medigap Part B [id number] Self C [id number] Julio MMC Commercial [id number] Self [id number] Medicaid [facility] Medigap Part B [id number] Self [id number] Medicaid Wrap Medigap Part B [id number] Self C [id number] [place] MMC Commercial [id number] Self [id number] ACH EMPLOYEE JUAN OFFICE NOT NEEDED Patient is In sured NOT NEEDED ACH EMP WORKERS COMPENSATION NOT NEEDED Patient is Insured NOT NEEDED Julio Managed Medicaid Commercial [id number] Self [id number] Medicaid [place] Medicaid [id number] S elf [id number] [place] Commercial [id number] Self [id number] Dentaquest MMC Commercial [id number] Self [id number] Medicaid Wrap Medigap Part B [id number] Self C [id number] [place] [facility] Commercial [id number] Self [id number] Medicaid [facility] Medigap Part B [id number] Self [id number] Medicaid Wrap Medigap Part B [id number] Self C [id number] [place] [facility] Commercial [id number] Self [id number] [place] [id number] Patient is Insur ed [id number] Julio Managed Medicaid Commercial [id number] Self [id number] Medicaid [place] Medicaid [id number] S elf [id number] [place] Commercial [id number] Self [id number] Dentaquest MMC Commercial [id number] Self [id number] Medicaid Wrap Medigap Part B [id number] Self C [id number] Julio [facility] Commercial [id number] Self [id number] Medicaid [facility] Medigap Part B [id number] Self [id number] Medicaid Wrap Medigap Part B [id number] Self C [id number] [place] [facility] Commercial [id number] Self [id number] BC TRAD PPO POS HMO BCARD [id number] Patient is Insured [id number] [employer] MMC Commercial [id number] Self 74 [id number] Medicaid Wrap Medigap Part B [id number] Self C [id number] [place] MMC Commercial [id number] Self [id number] Medicaid [facility] Medigap Part B [id number] Self [id number] Medicaid Wrap Medigap Part B [id number] Self C [id number] [place] [facility] Commercial [id number] Self [id number] D[employer] MMC Commercial [id number] Self [id number] Medicaid Wrap Medigap Part B [id number] Self C [id number] Julio MMC Commercial [id number] Self [id number] Medicaid [facility] Medicaid [id number] Self C [id number] Julio Managed Medicaid Commercial [id number] Self [id number] Excellus [place] Commercial [id number] Self [id number] Medicaid [facility] Medigap Part B [id number] Self [id number] Dentaquest Commercial [id number] Self [id number] Julio Commercial [id number] Self [id number] [facility] Commercial [id number] Self [id number] Julio Managed Medicaid Commercial Self [place] Managed [place] Commercial Self Medicaid [place] Self [place] [id number] Patient is Insured [id number] Dentaquest Commercial Medicaid Self Medicaid Julio Commercial Self Medicaid [facility] Medigap Part B Self [place] Commercial Self [place] [id number] Patient is Insured C [id number] [email or web address] Medigap Part B Self [place] Commercial Self [employer] [id number] Patient is Insured [id number] [email or web address] Commercial Self COMMERCIAL INSURANCE [id number] Patient is Insured [id number] [employer] [id number] Patient is Insure d [id number] [employer] [id number] Patient is Insure d [id number] NO FAULT UNAVAILABLE Patient is Insured UNAVAILABLE [employer] [id number] Patient is Insured [id number] [employer] [facility] 0 Patient i s Insured 0 [employer] [facility] UNAVAILABLE Patient is Insured UNAVAILABLE JULIO I [id number] Self [id number] JULIO I [id number] Self [id number] JULIO CARE PCP [id number] Patient is Insured [id number] SELF PAY [id number] Patient is Insured 1 [id number] [facility] [id number] Patient is Insured [id number] Problems, Conditions, and Diagnoses Code Display Name Description Problem Type Effective Dates Data Source(s) Z34.80 care Supervision of other normal P diamond 08/23/2019 12:00:00 AM EDT eCW1 ([facility]) V72.42 test positive test positive 08/01/2019 03:37:16 PM EDT [facility] 626.8 Missed period Missed period 07/29/2019 08:52:13 AM EDT [facility] 300.02 Generalized anxiety disorder Generalized anxiety disor timothy 07/13/2019 12:13:03 PM EDT [facility] F17.200 Nicotine dependence, unspecified, uncomp licated Nicotine dependence, unspecified, uncomplicated 07/13/2019 12:13:03 PM EDT [facility] [id number] Migraine without aura, not intractable, without status migrainosus Migraine without aura, not intractable, without status migrainosus 07/13/2019 12:13:03 PM EDT [facility] [id number] Obesity, unspecified Obesity, unspecified 07/13/2019 12:13:03 PM EDT [facility] V70.0 Health Screening Health Screening 07/13/2019 12 :13:03 PM EDT [facility] [id number] Malaise and fatigue Malaise and fatigue Problem 0 05/25/2019 12:00:00 AM EDT [facility] ([facility]) [id number] Hypersomnia Hypersomnia Problem 05/25/2019 12:00:00 AM EDT [facility] ([facility]) [id number] Chronic intractable migraine without aur a Chronic intractable migraine without aura Problem 05/25/2019 12:00:00 AM EDT [facility] ([facility]) [id number] Chronic tension-type headache Chronic tension-type hea dache Problem 05/25/2019 12:00:00 AM EDT [facility] ([facility]) [id number] Obstructive sleep apnea syndrome Obstructive sle ep apnea syndrome Problem 05/25/2019 12:00:00 AM EDT [facility] ([facility]) 86706671 Benign intracranial hypertension Benign intracra nial hypertension Problem 05/25/2019 12:00:00 AM EDT [facility] ([facility]) [id number] Disorders of initiating and maintaining sleep Disorders of initiating and maintaining sleep Problem 05/25/2019 12:00:00 AM EDT [facility] ([facility] ) Surgeries/Procedures Procedure Description Date Indications Data Source(s) Immunization: Boostrix 0.5mL IM (TDAP) 02/16/2020 12:0 0:00 AM EST eCW1 ([facility]) INFLUENZA VIRUS VACC SPLIT PRSRV FREE 3 YRS/> IM 11/25 12:00:00 AM EDT eCW1 ([facility]) Results ID Date Data Source GROUP B STREP CULTURE 03/01/2020 12:00:00 AM EST eCW1 ([facility]) Name Value Range Interpretation Code Description Data Bruna rce(s) Supporting Document(s) GROUP B STREP CULTURE eCW1 ([facility]) ID Date Data Source Glucose Challenge Test 1 Hour 12/21/2019 07:35:19 AM EDT eCW 1 ([facility]) Name Value Range Interpretation Code Description Data Bruna rce(s) Supporting Document(s) 169 GLUCOSE CHALLENGE TEST 1 HOUR eCW1 ([facility]) ID Date Data Source Type and Screen (D Rh Antibody Screen) 12/21/2019 07:33:17 A M EDT eCW1 ([facility]) Name Value Range Interpretation Code Description Data Bruna rce(s) Supporting Document(s) B POSITIVE BLOOD TYPE eCW1 ([facility]) NEGATIVE AB SCREEN (INDIRECT COOMB S)VIS eCW1 ([facility]) ID Date Data Source CBC - Complete Blood Count 12/21/2019 07:33:09 AM EDT eCW1 ( [facility]) Name Value Range Interpretation Code Description Data Bruna rce(s) Supporting Document(s) 8.6 WHITE BLOOD COUNT eCW1 ([facility]) 3.73 RED BLOOD COUNT eCW1 ([facility]) 11.3 HEMOGLOBIN eCW1 ([facility]) 34.7 HEMATOCRIT eCW1 ([facility]) 30.3 MEAN CORPUSCULAR HEMOGLOBIN eC W1 ([facility]) 93.0 MEAN CORPUSCULAR VOLUME eCW1 ( [facility]) 32.6 MEAN CORPUSCULAR HGB CONC eCW1 ([facility]) 322 PLATELET COUNT, AUTOMATED eCW1 ([facility]) 13.3 RED CELL DISTRIBUTION WIDTH eC W1 ([facility]) ID Date Data Source WWBC OBS FOLLOW UP OR REPEAT 12/19/2019 03:12:00 AM EDT eCW1 ([facility]) Name Value Range Interpretation Code Description Data Bruna rce(s) Supporting Document(s) WWBC OBS FOLLOW UP OR REPEAT e CW1 ([facility]) ID Date Data Source [id number] 07/30/2019 10:15:31 AM EDT [facility] Labs In-House Urine TestsDate/Time Colle cted: July 30, 2019 10:15 AMTest Result Reference Range Normal ValueAgnieszka Silveira, July 30, 2019 10:15 AMBlood TestsDate/Time Collected: July 30, 2019 10:15 AMTest Result Reference Range Normal ValueComments: blood draw done in office, taken from left ac, tolerated well.Agnieszka Jordana, July 30, 2019 10:16 AMAssessment & Plan Orders:[id number] Vst-Est Level I [CPT-03631] Urine Culture [CPT-67946] 29804 - Venipuncture [CPT-43414] _ Name Value Range Interpretation Code Description Data Bruna rce(s) Supporting Document(s) ID Date Data Source [id number] 07/30/2019 10:10:00 AM EDT [facility] Name Value Range Interpretation Code Description Data Bruna rce(s) Supporting Document(s) URINECULTRTN NO GROWTH N [facility] ID Date Data Source [id number] 07/27/2019 09:27:24 AM EDT [facility] In-House Blood TestsDate/Time Colle cted: July 27, 2019 9:27 AMTest Result Reference Range Normal ValueComments: blood draw done in offcie done in the right ac tolerated well Bryan La MA, July 27, 2019 9:27 AMAssessment & Plan Orders:[id number] Vst-Est Level I [CPT-38346] [id number] - Venipuncture [CPT-97519] Urine Culture [CPT-97553] Name Value Range Interpretation Code Description Data Bruna rce(s) Supporting Document(s) ID Date Data Source [id number] 07/27/2019 09:25:00 AM EDT [facility] Name Value Range Interpretation Code Description Data Bruna rce(s) Supporting Document(s) VIT D25 TOT 33.0 ng/mL 30.0-100.0 N [facility] BG FASTING 97 mg/dL 70-100 N [facility] T4, FREE 0.91 ng/dL 0.76-1.46 [facility] TSH 1.080 microintl units/mL 0.358-3.740 [facility] ID Date Data Source [id number] 07/27/2019 09:25:00 AM EDT [facility] Name Value Range Interpretation Code Description Data Bruna rce(s) Supporting Document(s) HCT 41.6 % 36.0-47.0 N [facility] HGB 13.7 g/dL 12.0-15.5 N [facility] MCH 32.9 G/DL [facility] 32[facility]0-[facility].5 [facility] MCHC 30.0 PG % 27.0-33.0 [facility] PLATELETS 419 10 10*3/mm3 150-450 N [facility] RBC 4.57 10 10*6/mm3 4.00-5.40 [facility] RDW 12.8 % 11.5-14.5 N [facility] WBC TOTAL 7.1 4.0-10.0 N [facility] ID Date Data Source [id number] 07/27/2019 09:25:00 AM EDT [facility] Name Value Range Interpretation Code Description Data Bruna rce(s) Supporting Document(s) HGBA1C 5.0 % N [facility] ID Date Data Source [id number] 07/13/2019 11:09:12 AM EDT [facility] Measurements & CalculationsHeight: 61 inches (5 ft. 1 in.) 154.94 cm Weight: 172 pounds 2 oz. 78.24 kg Body Mass Index (BMI): 32.64BMI Interpretation: ObeseBody Surface Area (BSA): 1.77Weight Management Education Done (Nutrition/Physical Activity)Vital SignsTemperature: 98.4F oral Pulse Rate: 63 beats/minuteRespirato ry Rate: 18 respirations/minuteBlood Pressure: 107/70 right arm sitting automaticO2 Saturation: 98% room airVital Signs performed by: Mc Chavez MA, July 13, 2019 11:42 AMInitial Intake Information From: patientRoom #: 9Infectious Disease / Travel ScreeningRecent travel for you or any close contacts? NoHave you had any close contact with anyone diagnosed with or under investigation for COVID-19 (coronavirus)? NoFever? NoRespiratory symptoms: cough, cold, congestion, shortness of breath, difficulty breathing? NoLoss of smell? NoLoss of taste? NoSmoking, Tobacco, Vaping or Smoke Exposure StatusSmoke Status: current every day smokerTobacco Use: YesAdv to Quit: YesDo you vape? NoPassive Smoke Exposure: YesMenstrual HistoryLast Menstrual Period (LMP): 05/30/2019Any possibility of ? NoComments: irregular periods Healthcare HistorySince your last office visit...Have you been admitted to the hospital? NoHave you been to an emergency room (ER) or urgent care clinic? NoHave you seen another healthcare provider? Yes - nuero Have you seen a dentist? NoIntake performed by: Mc Chavez MA, July 13, 2019 11:18 AMRate Your HealthIn general, would you say your health is? FairPain AssessmentAre you currently having any pain which... You would like your provider to address? Yes Affects your activity level? YesDepression Screening - PHQ-2Over the last two weeks, have you... Had little interest or pleasure in doing things? Not at all Been feeling down, depressed, or hopeless? Not at all PHQ-2 Score: 0Anxiety Screening - KRISTOFER-2Over the last two weeks, have you been... Feeling nervous, anxious, or on edge? More than half the days Unable to stop or control worrying? More than half the days KRISTOFER-2 Score: 4Food InsecurityWithin the past year...Did you worry whether your food would run out before you got money to buy more? NoWas there a time when the food you bought didn't last and you didn't have money to get more? NoGeneralized Anxiety Disorder 7-Item Screening (KRISTOFER-7)Answer Guide:0 = Not at all1 = Several days2 = Over half the days3 = Nearly every dayOver the last 2 weeks, how often have you been bothered by the following problems?Feeling nervous, anxious, or on edge: 2Not being able to stop or control worryinWorrying too much about different things: 2Trouble relaxinBeing so restless that it's hard to sit still: 3Becoming easily annoyed or irritable: 3Feeling afraid as if something awful might happen: 0Answer Guide:0 = Not difficult at all1 = Somewhat difficult2 = Very difficult3 = Extremely difficultHow difficult have these made it for you to do your work, take care of things at home, or get along with other people? 1GAD-7 Screening Results KRISTOFER-2 Score: 4GAD-7 Score: 14Functional Impairment: Somewhat difficultRecommendation: Moderate anxietyPain AssessmentPain ScaleNumeric Rating Scale: 5 / 10Location: lower backDuration: chronicFrequency: DailyCharacter/Quality: aching, sharp, stabbing, throbbing and pressureIs the pain radiating? NoPRAPARE Sociodemographic Characteristics Race: White Ethnicity: Not or Preferred Language: EnglishFamily and Home Address: [address] [place] [address] What is your housing situation today? I have housing Are you worried about losing your housing? NoMoney and Resources What is the highest level of school that you have finished? high school graduate Employed? Yes Your current work situation? [employer] Insurance: Managed Care FidelisIn the past year, have you or any family members you live with been unable to get any of the following when it was really needed? Denies Insecurity: food, utilities, clothing, children's librarian, phone, legal services, otherWithin the past year did you worry whether your food would run out before you got money to buy more? NoWithin the past year was there a time when the food you bought didn't last and you didn't have money to get more? NoIn the past year, have you had trouble affording costs associated with health insurance (such as deductibles, co-payments, etc.)? NoSocial and Emotional Health How often do you see or talk to people that you care about and feel close to? More than 5 times a week How stressed are you? SomewhatAdditional Optional Domains In the past 3 months, have you spent more than 2 nights in a row in a assisted, nursing home, long term center or juvenile correctional facility? No Has lack of transportation kept you from medical appointments or from getting your medications? NoIn the past year, have you had trouble getting any of the following when it was really needed (check all that apply)?noneIn the past year, have you had trouble paying the costs associated with health care or medicine (such as co-payments, costs for services, prices of medicines)? NoHow confident are you that you can control and manage most of your health problems? Very confident Are you a refugee? No (Country of origin: [place]) Do you feel physically and emotionally safe where you live? Yes In the past year, have you been afraid of a partner, ex-partner? NoScreening, Brief Intervention, & Referral to Treatment (SBIRT)Pre-Screening Questions How many times have you have 4 or more drinks in a day? 0How many times have you used an illegal drug or used a prescription medication for a non- medical reason? 0Performed by: Mc Chavez MA, July 13, 2019 11:24 AMPatient History Medical History:Chronic headachesMigrainesendometriosisscoliosisspinal stenosisbulging discSI joint painHigh cholesterolSurgical History:oral surgeryCholecystectomyAppendectomyFamily History:Asthma (Mother)COPD (Mother)High cholesterol (Mother)Hypertension (Mother)Hyperthyroidism (Mother)Asthma (Father)High cholesterol (Father)Hypertension (Father)Myocardial infarction ([place]) (Father)[place] - Male under age 55 (Father)Stroke (Father)Anxiety (Father)Depression (Father)Bipolar disorder (Father)Social/Personal History: Advised to Quit/Tobacco Education: YesChief ComplaintNew PE RM 9History of Present Illness (HPI)28 yo female here to establish care. Pt recently moved here from [facility]. Pt stattes was seen by PCP at [facility]. Records not available for review today. Pt states strong family history of cardiac disease. pt states dx of migraine, Pt states has upcoming appointment to see neurologist. Pt states moved here to be closer to [facility]. 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 HPI performed by: Celeste SHANKAR, July 13, 2019 11:44 AMTransitions of Care InboundProblem ReviewProblem List was reviewed and/or updated during this visit.Medication Reconciliation & ReviewMedication List was reviewed and/or updated during this visit, including review of any ewkh-med-ubifbbj medications, herbal therapies, and/or supplements.Allergy ReviewAllergy List was reviewed and/or updated during this visit.Adult Preventive CareProvider Calculated and Reviewed all Clinical Protocols for patient today. Screening Tobacco Screening: Smoking Status: current every day smoker (07/13/2019) Tobacco Use: Currently (07/13/2019) Advised to Quit: Yes (07/13/2019)Labs/Meds/Other Counseling-Nutrition and Physical Activity:BMI Interpretation: Obese (07/13/2019) Counseling: Done (07/13/2019) Physical Activity: Done (07/13/2019)Cancer Screening Pap Smear/HPV TestingReviewed: Today's Comments: Pt states she had one done in 2019Review of Systems General: Complains of sleep disturbances. Denies loss of appetite, chills, dizziness, fatigue, fever, continued fever, headache, feeling ill, sweats, night sweats, weight loss. Eyes: Denies double vision, irritation, discharge, vision loss, eye pain, eye swelling, droopy eyelid, sensitivity to light, redness, itching. Ears/Nose/Throat: Denies earache, ear discharge, ringing in ears, decreased hearing, nasal congestion, nosebleeds, runny nose, sore throat, hoarseness, dif ficulty swallowing, dry mouth, tooth pain, bleeding gums, swollen glands. Cardiovascular: Denies chest pain, palpitations, feeling faint, trouble breathing w/exertion, SOB upon lying down, SOB at night, peripheral edema, elevated blood pressure, decreased heart rate. Respiratory: Denies cough, difficulty breathing, shortness of breath, excessive sputum, coughing up blood, wheezing, chest pain. Breast: Denies discoloration, tenderness, breast changes, breast lump, nipple discharge. Gastrointestinal: Denies nausea, vomiting, bleeding, burning, itching, irritation, cramps, diarrhea. Genitourinary: Denies urinary incontinence, pain with urination, burning with urination, urinary frequency, urinary hesitancy, urinary urgency, urinary urgency at night, incomplete emptying, blood in urine. Musculoskeletal: Denies back pain, joint pain, leg pain, other pain-see comments, joint swelling, body aches, muscle aches, muscle cramps, muscle weakness, stiffness, recent injury. Skin: Denies rash, hives, redness, itching, dryness, nail changes, suspicious lesions, athlete's foot, rash on palms, rash on bottom of feet. Neurologic: Denies muscle impairment, weakness, numbness/tingling, seizures, slurred speech, feeling faint, tremors, vertigo, paralysis on one side, paralysis on both sides. Psychiatric: Denies depression, anxiety, memory loss, mental disturbance, suicidal ideation, homicidal ideation, hallucinations, paranoia, feeling stressed, hearing voices. Endocrine: Denies cold intolerance, heat intolerance, excessive thirst, excessive hunger, excessive urination, weight loss, weight gain. Heme/Lymphatic: Denies abnormal bruising, bleeding, enlarged lymph nodes. Physical ExamGeneral Appearance: well nourished, well hydrated, no acute distressEyes, External: conjunctivae and lids normal, EOMIRespiratory, Auscultation: clear to auscultation bilaterally; no rales, rhonchi, or wheezesRespiratory, Effort: no intercostal retractions or use of accessory musclesCardiovascular, Auscultation: S1, S2 audible; no murmur, rub, or gallop; RRRPeripheral Circulation: no clubbing, cyanosis, edema, or varicositiesAbdomen: soft, non-tender, no masses, bowel sounds normalGait & Station: normalSkin, Ins pection: no rashes, lesions, or ulcerationsOrientation: oriented to time, place, and personMood & Affect: no depression, anxiety, or agitationJudgment & Insight: seems intactCare Management Plan Transitions of CareInboundRate Your HealthIn general, would you say your health is? FairAssessment & Plan Problems:Added: Health Screening (ICD-V70.0) (LIF73-N29.9) Assessment: Instructions: F asting labs ordered for you today. Please return to have labs drawn. Please fast for 8-10 hours prior.Nicotine dependence, unspecified, uncomplicated (ICD10- F17.200) Assessment: Instructions: Please start to cut back on your smoking with a goal to quit. Nicotine patches sent to your pharmacy today. Please let us know if you need additional assistance.Migraine without aura, not intractable, without status migrainosus (AWP76-M51.009) Assessment: Instructions: Please continue to follow with your specialist.Obesity, unspecified (KWE63-J68.9) Assessment: Instructions: Please continue lifestyle changes to include healthy diet and physical activities.Generalized anxiety disorder (ICD-300.02) (GZS35-L50.1) Assessment: Instructions: Please try to monitor , report and avoid triggers causing increased anxiety.Patient Instructions/Care Plan: Health Screening: Fasting labs ordered for you today. Please return to have labs drawn. Please fast for 8-10 hours prior.Nicotine dependence- unspecified- uncomplicated: Please start to cut back on your smoking with a goal to quit. Nicotine patches sent to your pharmacy today. Please let us know if you need additional assistance.Migraine without aura- not intractable- without status migrainosus: Please continue to follow with your specialist.Obesity- unspecified: Please continue lifestyle changes to include healthy diet and physical activities.Generalized anxiety disorder: Please try to monitor , report and avoid triggers causing increased anxiety. Plan developed in collaboration with patient and/or familyMedications:EXCEDRIN EXTRA STRENGTH TABLETCHOLESTYRAMINE 4 GM/DOSE ORAL POWDERTOPAMAX 100 MG ORAL TABLETMedication Changes:Added: TOPAMAX 100 MG ORAL TABLET-1 Tab PO at bed timeCHOLESTYRAMINE 4 GM/DOSE ORAL POWDEREXCEDRIN EXTRA STRENGTH TABLET-1 Tab PO QIDAllergies:IODINE (Critical)PENICILLIN (Critical)* CONTRAST DYE (Critical)* SHELLFISH (Critical)Orders:COMP METABOLIC PANEL [CPT-51245] CBC W/DIFF [CPT-59566] HgBA1c [CPT-25272] LIPID PANEL [CPT-54505] TSH [CPT-30766] T-4 free [CPT-55702] Vitamin D 250H Unspecified [CPT-20106] URINALYSIS [CPT-58320] Adult - Ofc Vst, NEW, Level III [CPT-41843] Follow-Up Return to clinic: 2-3 weeks for follow up Clinical Visit Summary CompletedVaccines Administered/Entered:Vaccination Group: InfluenzaHistorical Source: Historical information - from patientSeries: 1 NOT GIVENVaccination: Flucelvax Quadrivalent PF (4y+) AdultReason Not Given: Patient decisionEntered Date: 07/13/2019 12:00 AMComments: Pt recieved at prior clinicEntered by: Mc Chavez MA Name Value Range Interpretation Code Description Data Bruna rce(s) Supporting Document(s) Procedure Social History Code Duration Value Status Description Data Source(s ) Smoking 02/28/2020 12:00:00 AM EST Former Smoker completed Former Smoker eCW1 ([facility]) Smoking 02/14/2020 12:00:00 AM EST Former Smoker completed Former Smoker eCW1 ([facility]) Smoking 02/08/2020 12:00:00 AM EST Former Smoker completed Former Smoker eCW1 ([facility]) Smoking 01/26/2020 12:00:00 AM EST Former Smoker completed Former Smoker eCW1 ([facility]) Smoking 01/17/2020 12:00:00 AM EST Former Smoker completed Former Smoker eCW1 ([facility]) Smoking 12/16/2019 12:00:00 AM EDT Former Smoker completed Former Smoker eCW1 ([facility]) Smoking 12/16/2019 12:00:00 AM EDT Former Smoker completed Former Smoker eCW1 ([facility]) Smoking 12/16/2019 12:00:00 AM EDT Former Smoker completed Former Smoker eCW1 ([facility]) 05/11/2019 12:00:00 AM EDT completed MEDENT ([facility]) Vital Signs ID Date Data Source UNK Name Value Range Interpretation Code Description Data Source(s) Diastolic blood pressure 70 mm[Hg] 70 mm[Hg] eCW1 ([facility]) Systolic blood pressure 130 mm[Hg] 130 mm[Hg] e CW1 ([facility]) Body weight 212 [lb_av] 212 [lb_av] eCW1 ([facility]) Diastolic blood pressure 72 mm[Hg] 72 mm[Hg] eCW1 ([facility]) Systolic blood pressure 120 mm[Hg] 120 mm[Hg] e CW1 ([facility]) Body mass index (BMI) [Ratio] 39.15 kg/m2 39.15 kg/m2 eCW1 ([facility]) Body height 61 [in_i] 61 [in_i] [facility] Body weight 93.98 kg 93.98 kg eCW1 [facility] Body weight 207.2 [lb_av] 207.2 [lb_av] eCW1 ([facility]) Diastolic blood pressure 70 mm[Hg] 70 mm[Hg] eCW1 ([facility]) Systolic blood pressure 124 mm[Hg] 124 mm[Hg] e CW1 ([facility]) Body mass index (BMI) [Ratio] 38.092 kg/m2 38.0 92 kg/m2 eCW1 ([facility]) Body height 61 [in_i] 61 [in_i] eCW1 ([facility] Body weight 201.6 [lb_av] 201.6 [lb_av] eCW1 ([facility]) Diastolic blood pressure 70 mm[Hg] 70 mm[Hg] eCW1 ([facility]) Systolic blood pressure 112 mm[Hg] 112 mm[Hg] e CW1 ([facility]) Body mass index (BMI) [Ratio] 38.205 kg/m2 38.2 05 kg/m2 eCW1 ([facility]) Body height 61 [in_i] 61 [in_i] eCW1 ([facility] Body weight 202.2 [lb_av] 202.2 [lb_av] eCW1 ([facility]) Diastolic blood pressure 62 mm[Hg] 62 mm[Hg] eCW1 ([facility]) Systolic blood pressure 108 mm[Hg] 108 mm[Hg] e CW1 ([facility]) Body mass index (BMI) [Ratio] 37.601 kg/m2 37.6 01 kg/m2 eCW1 ([facility]) Body height 61 [in_i] 61 [in_i] eCW1 ([facility]) Body weight 199 [lb_av] 199 [lb_av] eCW1 ([facility]) Diastolic blood pressure 70 mm[Hg] 70 mm[Hg] eCW1 ([facility]) Systolic blood pressure 108 mm[Hg] 108 mm[Hg] e CW1 ([facility]) Body mass index (BMI) [Ratio] 35.409 kg/m2 35.4 09 kg/m2 eCW1 ([facility]) Body height 61 [in_i] 61 [in_i] eCW1 ([facility]) Body weight 187.4 [lb_av] 187.4 [lb_av] eCW1 ([facility]) Respiratory rate 16 /min 16 /min MEDENT ( [facility]) Heart rate 76 /min 76 /min [facility] ([facility]) Diastolic blood pressure 80 mm[Hg] 80 mm[Hg] [facility] ([facility]) Systolic blood pressure 110 mm[Hg] 110 mm[Hg] [facility] [place] body weight 105 [lb_av] 105 [lb_av] MEDEN T ([facility]) Body mass index (BMI) [Ratio] 33.1 kg/m2 33.1 k g/m2 [facility] ([facility]) Body weight 175.00 [lb_av] 175.00 [lb_av] MEDEN T ([facility]) Body height 61 [in_i] 61 [in_i] [facility] ([facility]) 5'1" Patient Treatment Plan of Care Planned Activity Planned Date Details Description Data Source (s) Lancets - 12/29/2019 12:00:00 AM EST e CW1 ([facility]) Alcohol Pads 70 % 12/29/2019 12:00:00 AM EST eCW1 ([facility]) Test Strips - 12/29/2019 12:00:00 AM EST eCW1 ([facility]) Contour Blood Glucose System w/Device 12/29/2019 12:00:00 AM EST eCW1 ([facility]) Acetaminophen 325 MG / butalbital 50 MG / Caffeine 40 MG Oral Tablet [Esgic] 12/21/2019 12:00:00 AM EDT eCW1 ([facility]) Acetaminophen 325 MG / butalbital 50 MG / Caffeine 40 MG Oral Tablet [Esgic] 12/21/2019 12:00:00 AM EDT eCW1 ([facility]) Acetaminophen 325 MG / butalbital 50 MG / Caffeine 40 MG Oral Tablet [Esgic] 12/21/2019 12:00:00 AM EDT eCW1 ([facility])
--- OUTSIDE RECORDS SUMMARY | 2020-03-09 01:50 | CCD ---
Author Author [facility] Organization [facility] Address Unknown Phone Unavailable Care Team Providers Care Fire Captain Name Role Phone Gita Paulino Unavailable PROBLEMS Type Condition ICD9-CM Code NLA42-ID Code Onset Dates Condition S tatus SNOMED Code Notes Problem Supervision of other normal Z34.80 Ac tive [id number] ALLERGIES Allergen (clinical drug ingredient) Drug/Non Drug Allergy do cumented on EMR Reaction Allergy Type Onset Date Status Shell fish Unknown Non Drug Allergy Active Iodine([facility] Code:68946-40802) Anaphylaxis Drug Allergy Active Penicillin Unknown Non Drug Allergy Active ENCOUNTERS from 1991 to 2019-12-22 Encounter Location Date Provider Diagnosis [facility] [address] [place] [id number] Nov, Gita Paulino Glucose intolerance of O99.810 IMMUNIZATIONS Vaccine Route Administration Date Status Influenza [...] fo r 30 days Nov, Active PROCEDURES No Information RESULTS No Results REASON FOR VISIT failed 1 hour GTT MEDICAL (GENERAL) HISTORY Type Description Date Medical History migraine headaches Surgical History gall bladder Surgical History gallstones Surgical History wisdom teeth Surgical History tonsillectomy Hospitalization History gallbladder Hospitalization History migraines Goals Section No Information Health Concerns No Information MEDICAL EQUIPMENT No Information MENTAL STATUS No Information FUNCTIONAL STATUS No Information ASSESSMENTS Encounter Date Diagnosis Notes Nov, Glucose intolerance of (ICD-10 - O99.810) PLAN OF TREATMENT Medication Medication Name Sig Start Date Stop Date Esgic 50-325-40 MG 1 tablet as needed Orally every 4 hrs fo r 30 days Nov, Treatment Notes Test Name Order Date GLUCOSE SANG 3 HR GESTATIONAL 2019-12-22 Next Appt Details Provider Name:Gita Paulino, 2020-01-26 08:00:00 AM, [address] [place], [address], Insurance Providers Payer Name Payer Address Payer Phone Insured Name Patient Relati onship to Insured Coverage Start Date Coverage End Date [facility] [employer] CLAIM[employer] DEPT [address] [facility] [phone] LOPERFIDO,XAVIER REENEE self MEDICAID [employer] [address] [facility] [id number] LOPERFIDO,XAVIER REENEE self
[2020-03-09] MEDS ORDERED: MORPHINE 4 MG/ML 1ML VIAL/SYRINGE (J2270) IV PRN (03:00)
[2020-03-09] MEDS ORDERED: METOCLOPRAMIDE INJ 10MG/2ML VIAL (J2765 PER 1) IV ONE (03:00)
[2020-03-09] MEDS ORDERED: NS 1,000 ML IV ONE (03:00)
[2020-03-09 03:20] LABS: BASO % 0.1 % (0.0-1.0); EOS # 0.1 10^3/uL (0.0-0.5); EOS % 1.2 % (0.0-3.0); HEMATOCRIT 33.3 % (36.0-47.0); HEMOGLOBIN 10.8 g/dl (12.0-15.5); LYMPH # 1.8 10^3/uL (1.5-5.0); LYMPH % 26.3 % (24.0-44.0); MEAN CORPUSCULAR HEMOGLOBIN 29.6 pg (27.0-33.0); MEAN CORPUSCULAR HGB CONC 32.4 g/dl (32.0-36.5); MEAN CORPUSCULAR VOLUME 91.2 fl (80.0-96.0); MONO # 0.7 10^3/uL (0.0-0.8); MONO % 9.5 % (0.0-5.0); NEUTROPHILS # 4.3 10^3/uL (1.5-8.5); NEUTROPHILS % 62.3 % (36.0-66.0); PLATELET COUNT, AUTOMATED 262 10^3/uL (150-450); RED BLOOD COUNT 3.65 10^6/uL (4.00-5.40); WHITE BLOOD COUNT 6.9 10^3/uL (4.0-10.0)
[2020-03-09 03:26] LABS: AMORPHOUS SEDIMENT SMALL (NEGATIVE); APPEARANCE, URINE CLOUDY (CLEAR); BACTERIA, URINE AUTO 1+ (NEGATIVE); BILIRUBIN, URINE AUTO NEGATIVE (NEGATIVE); BLOOD, URINE BLOOD NEGATIVE (NEGATIVE); COLOR, URINE YELLOW (YELLOW); GLUCOSE, URINE (UA) AUTO NEGATIVE (NEGATIVE); KETONE, URINE AUTO NEGATIVE (NEGATIVE); LEUKOCYTE ESTERASE, URINE AUTO NEGATIVE (NEGATIVE); NITRITE, URINE AUTO NEGATIVE (NEGATIVE); PROTEIN, URINE AUTO NEGATIVE (NEGATIVE); RBC, URINE AUTO 2 /HPF (0-3); SPECIFIC GRAVITY URINE AUTO 1.012 (1.002-1.035); SQUAMOUS EPITHELIAL CELL UR AU 1 /HPF (0-6); UROBILINOGEN, URINE AUTO 0.2 mg/dL (0.0-2.0); WBC, URINE AUTO 1 /HPF (0-3)
[2020-03-09 04:00] LABS: ALBUMIN 2.1 GM/DL (3.2-5.2); ALT/SGPT 19 U/L (12-78); BILIRUBIN,DIRECT < 0.1 MG/DL (0.0-0.2); BILIRUBIN,TOTAL 0.2 MG/DL (0.2-1.0); BLOOD UREA NITROGEN 8 MG/DL (7-18); CALCIUM LEVEL 8.4 MG/DL (8.5-10.1); CARBON DIOXIDE LEVEL 26 MEQ/L (21-32); CHLORIDE LEVEL 108 MEQ/L (98-107); CREATININE FOR GFR 0.46 MG/DL (0.55-1.30); GLOMERULAR FILTRATION RATE > 60.0 (>60); GLUCOSE, FASTING 91 MG/DL (70-100); MAGNESIUM LEVEL 1.8 MG/DL (1.8-2.4); SODIUM LEVEL 141 MEQ/L (136-145); TOTAL PROTEIN 5.5 GM/DL (6.4-8.2); URIC ACID 3.2 MG/DL (2.6-6.0)
[2020-03-09] MEDS ORDERED: OXYCODONE/APAP 5MG/325MG(BULK FOR ED) 1 TABLET PO ONE (05:00)
--- OUTSIDE RECORDS SUMMARY | 2020-03-09 05:12 | CCD ---
Author Author [facility] Organization [facility] Address Unknown Phone Unavailable Care Team Providers Care Pension Agent Name Role Phone Simone, A Celeste SCABBLER Unavailable Unavailable Stayton, A Celeste SCABBLER Unavailable Unavailable Stayton, A Celeste SCABBLER Unavailable Unavailable Stayton, A Celeste SCABBLER Unavailable Unavailable Stayton, A Celeste SCABBLER Unavailable Unavailable Stayton, A Celeste SCABBLER Unavailable Unavailable Stayton, A Celeste SCABBLER Unavailable Unavailable Simone, A Celeste SCABBLER Unavailable Unavailable Simone, A Celeste SCABBLER Unavailable Unavailable Simone, A Celeste SCABBLER Unavailable Unavailable Simone, A Celeste SCABBLER Unavailable Unavailable Simone, A Celeste SCABBLER Unavailable Unavailable Simone, A Celeste SCABBLER Unavailable Unavailable Simone, A Celeste SCABBLER Unavailable Unavailable Simone, A Celeste SCABBLER Unavailable Unavailable Simone, A Celeste SCABBLER Unavailable Unavailable Simone, A Celeste SCABBLER Unavailable Unavailable Simone, A Celeste SCABBLER Unavailable Unavailable Simone, A Celeste SCABBLER Unavailable Unavailable Simone, A Celeste SCABBLER Unavailable Unavailable Simone, A Celeste SCABBLER Unavailable Unavailable Matt Nichols Celeste SCABBLER Unavailable Unavailable Matt Nichols Celeste SCABBLER Unavailable Unavailable Matt Nichols Celeste SCABBLER Unavailable Unavailable Matt Nichols Celeste SCABBLER Unavailable Unavailable Matt Nichols Celeste SCABBLER Unavailable Unavailable Matt Nichols Celeste SCABBLER Unavailable Unavailable Trickey, J Felisha PA Unavailable [...] Trickey, J Felisha PA Unavailable Unavailable CALZOLAIO, Vimal CHAMPION MD Unavailable Unavailable CALZOLAIO, Vimal CHAMPION MD Unavailable Unavailable CALZOLAIO, Vimal CHAMPION MD Unavailable Unavailable CALZOLAIO, Vimal CHAMPION MD Unavailable Unavailable CALZOLAIO, Vimal CHAMPION MD Unavailable Unavailable CALZOLAIO, Vimal CHAMPION MD Unavailable Unavailable CALZOLAIO, Vimal CHAMPION MD Unavailable Unavailable CALZOLAIO, Vimal CHAMPOIN MD Unavailable Unavailable CALZOLAIO, Vimal CHAMPION MD Unavailable Unavailable CALZOLAIO, Vimal CHAMPION MD Unavailable Unavailable CALZOLAIO, Vimal CHAMPION MD Unavailable Unavailable CALZOLAIO, Vimal CHAMPION MD Unavailable Unavailable CALZOLAIO, Vimal CHAMPION MD Unavailable Unavailable CALZOLAIO, Vimal CHAMPION MD Unavailable Unavailable CALZOLAIO, Vimal CHAMPION MD Unavailable Unavailable CALZOLAIO, Vimal CHAMPION MD Unavailable Unavailable CALZOLAIO, Vimal CHAMPION MD Unavailable Unavailable CALZOLAIO, Vimal CHAMPION MD Unavailable Unavailable CALZOLAIO, Vimal CHAMPION MD Unavailable Unavailable CALZOLAIO, Vimal CHAMPION MD Unavailable Unavailable CALZOLAIO, Vimal CHAMPION MD Unavailable Unavailable CALZOLAIO, Vimal CHAMPION MD Unavailable Unavailable CALZOLAIO, Vimal CHAMPION MD Unavailable Unavailable CALZOLAIO, Vimal CHAMPION MD Unavailable Unavailable CALZOLAIO, Vimal CHAMPION MD Unavailable Unavailable Celeste Nichols SCABBLER SCABBLER Unavailable Unavailable Re-disclosure Warning The records that [...] is protected by Article 27-F of the [facility] Public Health law. If you continue you may have access to information: Regarding HIV / AIDS; Provided by facilities licensed or operated by the [facility] Office of Mental Health; or Provided by the [facility] Office for People With Developmental Disabilities. If such information is present, then the following [facility] mandated warning applies: This information has been [...] law may result in a fine or fci sentence or both. A general authorization for the release of medical or other information is NOT sufficient authorization for further disc losure. Allergies and Adverse Reactions Type Description Substance Reaction Status Data Source(s ) Drug allergy PENICILLIN PENICILLIN [facility] Miscellaneous allergy CONTRAST DYE CONTRAST DYE [facility] Drug allergy IODINE IODINE [facility] Food allergy SHELLFISH SHELLFISH [facility] Family History Family Member Name Family Member Gender Family Member Status Date o f Status Description Data Source(s) Unknown Unknown Problem MEDENT ([facility]) Unknown Male Problem MEDENT ([facility]) Encounters Encounter Providers Location Date Indications Data Source(s ) ( COB) [facility] [address] [place] [address] 03/01/2020 12:00:00 AM EST eCW1 ([facility]) ( COB) [facility] [address] [place] [address] 02/16/2020 12:00:00 AM EST eCW1 ([facility]) ( ESTOB) [facility] Est OB [address] [place] [address] 02/09/2020 12:00:00 AM EST eCW1 ([facility]) Outpatient Attender: Felisha CALLE Main office - [facility] 02/03/2020 07:00:00 AM EST MEDENT ([facility]) ( COB) [facility] Complicated OB [address] [place] [address] 01/26/2020 12:00:00 AM EST eCW1 ([facility]) ( ESTOB) [facility] [address] [place] [address] 01/05/2020 12:00:00 AM EST eCW1 ([facility]) Unknown [address] [facility] [address] 12/29/2019 12:00:00 AM EST eCW1 ([facility] Unknown [address] [facility] [address] 12/21/2019 12:00:00 AM EDT eCW1 ([facility]) ( ESTOB) [facility] [address] [place] [address] 11/26/2019 12:00:00 AM EDT eCW1 ([facility]) Outpatient Attender: Felisha CALLE Main [facility] 10/27/2019 09:45:00 AM EDT MEDENT ([facility] ) Outpatient Attender: VONNIE FARFAN 08/04/2019 [...] Celeste FARFAN 07/29/2019 09:0 3:02 AM EDT [facility] Outpatient Attender: VONNIE EASONP FP 07/29/2019 09:03:01 A M EDT [facility] Outpatient Attender: VONNIE SHANKAR FP 07/29/2019 09:02:02 A M EDT [facility] Outpatient Attender: Celeste Simone SHANKAR FP 07/29/2019 09:0 2:01 AM EDT [facility] Outpatient Attender: Celeste Simone EASONP FP 07/29/2019 09:0 0:04 AM EDT [facility] Outpatient Attender: VONNIE SHANKAR FP 07/29/2019 08:57:00 A M EDT [facility] Outpatient Attender: VONNIE EASONP FP 07/29/2019 08:54:02 A M EDT [facility] Outpatient Attender: Felisha CALLE Main office [facility] 07/28/2019 09:30:00 AM EDT MEDENT ([facility] ) Outpatient Attender: VONNIE EASONP FP 07/23/2019 09:43:00 A M EDT [facility] Outpatient Attender: Celeste Simone EASONP FP 07/19/2019 08:2 2:01 PM EDT [facility] Outpatient Attender: VONNIE SHANKAR FP 07/15/2019 02:54:00 P M EDT [facility] Outpatient Attender: VONNIE EASONP FP 07/14/2019 09:50:38 A M EDT [facility] Outpatient Attender: VONNIE SHANKAR FP 07/13/2019 01:01:01 P M EDT [facility] Outpatient Attender: VONNIE EASONP FP 07/13/2019 01:00:00 P M EDT [facility] Outpatient Attender: VONNIE EASONP FP 07/13/2019 12:59:00 P M EDT [facility] Outpatient Attender: VONNIE SHANKAR FP 07/13/2019 12:14:01 P M EDT [facility] Outpatient Attender: VONNIE SHANKAR FP 07/13/2019 11:19:00 A M EDT [facility] Outpatient Attender: VONNIE EASONP FP 07/13/2019 11:15:01 A M EDT [facility] Outpatient Attender: VONNIE Nichols SCABBLER FP 07/13/2019 11:14:01 A M EDT [facility] Outpatient Attender: VONNIE Nichols SCABBLER FP 07/12/2019 09:08:00 A M EDT [facility] Outpatient 04/29/2019 03:17:00 PM EST [facility] Outpatient Attender: AKIRA Ackerman DAdmitter: AKIRA LARSON MDConsultant: AKIRA LARSON MD OUTPATIENT-MEDENT 12/29/2018 05:28:00 PM EST - 12/29/2018 11:59:00 PM [facility] Patient discharged. Immunizations Vaccine Date Status Description Data Source(s) Tdap 02/16/2020 08:58:00 AM EST completed e CW1 ([facility]) Tdap 02/16/2020 08:58:00 AM EST completed e CW1 ([facility]) New in 2011. IIV4 11/26/2019 11:31:00 AM EDT completed eCW1 ([facility]) New in 2011. IIV4 11/26/2019 11:31:00 AM EDT completed eCW1 ([facility]) New in 2011. IIV4 11/26/2019 11:31:00 AM EDT completed eCW1 ([facility]) New in 2011. IIV4 11/26/2019 11:31:00 AM EDT completed eCW1 ([facility]) New in 2011. IIV4 11/26/2019 11:31:00 AM EDT completed eCW1 ([facility]) New in 2011. IIV4 11/26/2019 11:31:00 AM EDT completed eCW1 ([facility]) New in 2011. IIV4 11/26/2019 11:31:00 AM EDT completed eCW1 ([facility]) New in 2011. IIV4 11/26/2019 11:31:00 AM EDT completed eCW1 ([facility]) Medications Medication Brand Name Start Date Product Form Dose Route Admi nistrative Instructions Pharmacy Instructions Status Indications Reaction Description Data Source(s) BLOOD SUGAR DIAGNOSTIC 12/30/2019 12:00:00 AM EST strip 100 USE TO TEST FOUR TIMES A DAY USE TO TEST FOUR TIMES A DAY SOLD: 01/27/2020 [facility] BLOOD SUGAR DIAGNOSTIC 12/30/2019 12:00:00 AM EST strip 100 USE TO TEST FOUR TIMES A DAY USE TO TEST FOUR TIMES A DAY SOLD: 03/01/2020 [facility] Test Strips - UNK 12/29/2019 12:00:00 AM EST acti ve Test Strips - eCW1 ([facility]) Alcohol Pads 70 % Alcohol Pads 70 % 12/29/2019 12:00:00 AM EST active Alcohol Pads 70 % eCW1 ([facility]) Contour Blood Glucose System w/Device Contour Blood Glucose System w/Device 12/29/2019 12:00:00 AM EST active Contour Blood Glucose System w/Device eCW1 ([facility]) Lancets - Lancets - 12/29/2019 12:00:00 AM EST act marga Lancets - eCW1 ([facility]) Lancets - Lancets - 12/29/2019 12:00:00 AM EST act marga Lancets - eCW1 ([facility]) Lancets - Lancets - 12/29/2019 12:00:00 AM EST act marga Lancets - eCW1 ([facility]) Alcohol Pads 70 % Alcohol Pads 70 % 12/29/2019 12:00:00 AM EST active Alcohol Pads 70 % eCW1 ([facility]) Contour Blood Glucose System w/Device Contour Blood Glucose System w/Device 12/29/2019 12:00:00 AM EST active Contour Blood Glucose System w/Device eCW1 ([facility]) Test Strips - UNK 12/29/2019 12:00:00 AM EST acti ve Test Strips - eCW1 ([facility]) Contour Blood Glucose System w/Device Contour Blood Glucose System w/Device 12/29/2019 12:00:00 AM EST active Contour Blood Glucose System w/Device eCW1 ([facility]) Test Strips - UNK 12/29/2019 12:00:00 AM EST acti ve Test Strips - eCW1 ([facility]) Contour Blood Glucose System w/Device Contour Blood Glucose System w/Device 12/29/2019 12:00:00 AM EST active Contour Blood Glucose System w/Device eCW1 ([facility]) Test Strips - UNK 12/29/2019 12:00:00 AM EST acti ve Test Strips - eCW1 ([facility]) Test Strips - UNK 12/29/2019 12:00:00 AM EST acti ve Test Strips - eCW1 ([facility]) ALCOHOL ANTISEPTIC PADS 12/29/2019 12:00:00 AM EST pads, med icated 100 USE FOUR TIMES A DAY DIRECTED USE FOUR TIMES A DAY DIRECTED SOLD: 12/30/2019 [facility] Lancets - Lancets - 12/29/2019 12:00:00 AM EST act marga Lancets - eCW1 ([facility]) ALCOHOL ANTISEPTIC PADS 12/29/2019 12:00:00 AM EST pads, med icated 100 USE FOUR TIMES A DAY DIRECTED USE FOUR TIMES A DAY DIRECTED SOLD: 01/27/2020 [facility] Lancets - Lancets - 12/29/2019 12:00:00 AM EST act marga Lancets - eCW1 ([facility]) Alcohol Pads 70 % Alcohol Pads 70 % 12/29/2019 12:00:00 AM EST active Alcohol Pads 70 % eCW1 ([facility]) Contour Blood Glucose System w/Device Contour Blood Glucose System w/Device 12/29/2019 12:00:00 AM EST active Contour Blood Glucose System w/Device eCW1 ([facility]) Test Strips - UNK 12/29/2019 12:00:00 AM EST acti ve Test Strips - eCW1 ([facility]) Alcohol Pads 70 % Alcohol Pads 70 % 12/29/2019 12:00:00 AM EST active Alcohol Pads 70 % eCW1 ([facility]) Alcohol Pads 70 % Alcohol Pads 70 % 12/29/2019 12:00:00 AM EST active Alcohol Pads 70 % eCW1 ([facility]) Contour Blood Glucose System w/Device Contour Blood Glucose System w/Device 12/29/2019 12:00:00 AM EST active Contour Blood Glucose System w/Device eCW1 ([facility]) Lancets - Lancets - 12/29/2019 12:00:00 AM EST act marga Lancets - eCW1 ([facility]) Alcohol Pads 70 % Alcohol Pads 70 % 12/29/2019 12:00:00 AM EST active Alcohol Pads 70 % eCW1 ([facility]) Acetaminophen 325 MG / butalbital 50 MG / Caffeine 40 MG Oral Tablet [Esgic] Esgic 50-325-40 MG Esgic 50-325-40 MG 12/21/2019 12:00:00 AM EDT 1.0 {tablet_as_needed} active Esgic 50-325- 40 MG eCW1 ([facility]) Acetaminophen 325 MG / butalbital 50 MG / Caffeine 40 MG Oral Tablet [Esgic] Esgic 50-325-40 MG Esgic 50-325-40 MG 12/21/2019 12:00:00 AM EDT 1.0 {tablet_as_needed} active Esgic 50-325- 40 MG eCW1 ([facility]) Acetaminophen 325 MG / butalbital 50 MG / Caffeine 40 MG Oral Tablet [Esgic] Esgic 50-325-40 MG Esgic 50-325-40 MG 12/21/2019 12:00:00 AM EDT 1.0 {tablet_as_needed} active Esgic 50-325- 40 MG eCW1 ([facility]) Acetaminophen 325 MG / butalbital 50 MG / Caffeine 40 MG Oral Tablet [Esgic] Esgic 50-325-40 MG Esgic 50-325-40 MG 12/21/2019 12:00:00 AM EDT 1.0 {tablet_as_needed} active Esgic 50-325- 40 MG eCW1 ([facility]) Acetaminophen 325 MG / butalbital 50 MG / Caffeine 40 MG Oral Tablet [Esgic] Esgic 50-325-40 MG Esgic 50-325-40 MG 12/21/2019 12:00:00 AM EDT 1.0 {tablet_as_needed} active Esgic 50-325- 40 MG eCW1 ([facility]) Acetaminophen 325 MG / butalbital 50 MG / Caffeine 40 MG Oral Tablet [Esgic] Esgic 50-325-40 MG Esgic 50-325-40 MG 12/21/2019 12:00:00 AM EDT 1.0 {tablet_as_needed} active Esgic 50-325- 40 MG eCW1 ([facility]) Acetaminophen 325 MG / butalbital 50 MG / Caffeine 40 MG Oral Tablet [Esgic] Esgic 50-325-40 MG Esgic 50-325-40 MG 12/21/2019 12:00:00 AM EDT 1.0 {tablet_as_needed} active Esgic 50-325- 40 MG eCW1 ([facility]) Acetaminophen 325 MG / butalbital 50 MG / Caffeine 40 MG Oral Tablet [Esgic] Esgic 50-325-40 MG Esgic 50-325-40 MG 12/21/2019 12:00:00 AM EDT 1.0 {tablet_as_needed} active Esgic 50-325- 40 MG eCW1 ([facility]) 50-325-40 mg 12/21/2019 12:00:00 AM EDT tablet [...] 12:00:00 AM EDT ORAL completed MEDENT ([facility]) 100 mg 07/28/2019 12:00:00 AM [...] 05/25/2019 12:00:00 AM EDT ORAL completed MEDENT ([facility]) Ondansetron 4 MG Disintegrating Oral Tablet Ondansetron 05/25/2019 12:00:00 AM EDT ORAL active MEDENT ([facility]) topiramate 100 MG Oral Tablet Topiramate 05/25/2019 12:00:00 AM EDT ORAL completed MEDENT ([facility]) 250-250-65 mg 05/11/2019 12:00:00 [...] TABLET BY MOUTH AT BEDTIME SOLD: 04/28/2019 [facility] 137 mcg (0.1 %) 04/26/2019 12:00:00 [...] type / Coverage type Policy ID Covered republican ID Covered republican's relationship to londono Policy Londono Plan Information JULIO [id number] SP [id number] [place]ARE [place] [id number] S [id number] Medicaid S [id number] S [id number] Managed Care Julio P [id number] S [id number] Medicaid S [id number] S [id number] Managed Care Julio P [id number] S [id number] Medicaid S UNAVAILABLE S UNAVAILA BLE Self Pay P UNAVAILABLE S UNA[place]ILA BLE [place] [id number] SP [id number] JULIO [facility] [id number] Patient is Insured [id number] [place] [id number] Self [id number] [place] Managed Medicaid Commercial [id number] Self [id number] [place]ig[place] [id number] Self [id number] Julio Managed Medicaid Commercial [id number] Self [id number] [place]ig[place] Part B [id number] Self [id number] [place] Managed Medicaid Commercial [id number] Self [id number] Medicaid Wrap Medigap Part B [id number] Self C [id number] Burrows [facility] Commercial [id number] Self [id number] [place] [facility] Medig[place] Part B [id number] Self [id number] Dentaquest [facility] Commercial [id number] Self [id number] Medicaid Wrap Medigap Part B [id number] Self C [id number] Julio [facility] Commercial [id number] Self [id number] [facility] [id number] Self [id number] DENTAQUEST [facility] [id number] Patient is Insured [id number] MEDICAID WRAP [id number] Patient is Insured [id number] Medicaid Wrap Medigap Part B [id number] Self C [id number] Burrows [facility] Commercial [id number] Self [id number] Medicaid [facility] Medigap Part B [id number] Self [id number] Dentaquest MMC Commercial [id number] Self [id number] Medicaid Wrap Medigap Part B [id number] Self C [id number] Julio [facility] Commercial [id number] Self [id number] Medicaid Wrap Medigap Part B [id number] Self C [id number] Burrows [facility] Commercial [id number] Self [id number] Medicaid [facility] Medigap Part B [id number] Self [id number] [employer] [facility] Commercial [id number] Self [id number] Medicaid Wrap Medigap Part B [id number] Self C [id number] Julio [facility] Commercial [id number] Self [id number] JULIO CARE DIRECT PCP [id number] Patient is Ins ured [id number] SELF PAY NOT NEEDED Patient is Insured NOT NEEDED [facility] NOTNEEDED Patient i s Insured NOTNEEDED JULIO CARE DIRECT PCP 7 Patient is Insur ed 7 JULIO [facility] [id number] Patient is Insured [id number] Medicaid Wrap Medigap Part B [id number] Self C [id number] Burrows [facility] Commercial [id number] Self [id number] Medicaid [facility] Medigap Part B [id number] Self [id number] [employer] [facility]MC Commercial [id number] Self [id number] Medicaid Wrap Medigap Part B [id number] Self C [id number] Julio [facility] Commercial [id number] Self [id number] [place] [id number] Self [id number] [place] Managed Medicaid Commercial [id number] Self [id number] Julio Medicaid F [id number] SELF [id number] Medicaid Wrap Medigap Part B [id number] Self C [id number] Julio [facility] Commercial [id number] Self [id number] Medicaid [facility] Medigap Part B [id number] Self [id number] Medicaid Wrap Medigap Part B [id number] Self C [id number] [employer]rows [facility] Commercial [id number] Self [id number] [employer] [facility] Commercial [id number] Self [id number] [employer] [facility] Commercial [id number] Self [id number] Medicaid Wrap Medigap Part B [id number] Self C [id number] Julio [facility] Commercial [id number] Self [id number] [place] [facility] Med[place] [id number] Self [id number] Medicaid Wrap Medigap Part B [id number] Self C [id number] Julio [facility] Commercial [id number] Self [id number] [employer] [facility] Commercial [id number] Self [id number] Medicaid Wrap Medigap Part B [id number] Self C [id number] [facility] Commercial [id number] Self [id number] [place] Med[place] [id number] Self [id number] Medicaid Wrap Medigap Part B [id number] Self C [id number] Burrows [facility] Commercial [id number] Self [id number] [place] [id number] Self [id number] [place] Managed Medicaid Commercial [id number] Self [id number] [employer] [facility] Commercial [id number] Self [id number] Medicaid Wrap Medigap Part B [id number] Self C [id number] Burrows [facility] Commercial [id number] Self [id number] [place] Med[place] Part [place] [id number] Self [id number] Medicaid Wrap Medigap Part B [id number] Self C [id number] Burrows [facility] Commercial [id number] Self [id number] [place] [id number] Self [id number] Julio Managed Medicaid Commercial [id number] Self [id number] MEDICAID WRAP [id number] Patient is Insured [id number] [place] [facility] [id number] Patient is Insured [id number] [place] [id number] Self [id number] [place] Managed Medicaid Commercial [id number] Self [id number] [place] [id number] Self [id number] Julio Managed Medicaid Commercial [id number] Self [id number] [employer] [facility] Commercial [id number] Self [id number] Medicaid Wrap Medigap Part B [id number] Self C [id number] Julio [facility] Commercial [id number] Self [id number] [place] [facility] Medig[place] Part B [id number] Self [id number] Medicaid Wrap Medigap Part B [id number] Self C [id number] Burrows [facility] Commercial [id number] Self [id number] [place] [id number] Self [id number] Julio Managed Medicaid Commercial [id number] Self [id number] [place] [id number] Self [id number] [place] Managed Medicaid Commercial [id number] Self [id number] [place] Managed Medicaid Commercial [id number] Self [id number] [place] Care [place] Commercial [id number] Self [id number] [place] [id number] Self [id number] [place] Managed Medicaid Commercial [id number] Self [id number] [place] Managed Medicaid Commercial [id number] Self [id number] Julio Care [place] Commercial [id number] Self [id number] [place] [id number] Self [id number] [place] Managed Medicaid Commercial [id number] Self [id number] Juloi Managed Medicaid Commercial [id number] Self [id number] Julio Care [place] Commercial [id number] Self [id number] [place] [id number] Self [id number] [place] Managed Medicaid Commercial [id number] Self [id number] Julio Managed Medicaid Commercial [id number] Self [id number] [place] [facility] [place] Commercial [id number] Self [id number] [place] [id number] Self [id number] Julio Managed Medicaid Commercial [id number] Self [id number] [place] Managed Medicaid Commercial [id number] Self [id number] [place] Care [place] Commercial [id number] Self [id number] [place] [id number] Self [id number] Julio Managed Medicaid Commercial [id number] Self [id number] Burrows Managed Medicaid Commercial [id number] Self [id number] [place] [id number] Self [id number] [place] Commercial [id number] Self [id number] Burrows Managed Medicaid Commercial [id number] Self [id number] Burrows Managed Medicaid Commercial [id number] Self [id number] [place] [id number] Self [id number] [place] Commercial [id number] Self [id number] Julio Managed Medicaid Commercial [id number] Self [id number] Lifetime Benefit Solution Commercial [id number] Family Depend ent [id number] Julio Managed Medicaid Commercial [id number] Self [id number] [place] [id number] Self [id number] Jul[place] Commercial [id number] Self [id number] Julio Managed Medicaid Commercial [id number] Self [id number] Lifetime Benefit Solution Commercial [id number] Family Depend ent [id number] Burrows Managed Medicaid Commercial [id number] Self [id number] [place] [id number] Self [id number] [place] Commercial [id number] Self [id number] Julio Managed Medicaid Commercial [id number] Self [id number] Denta[employer] MMC Commercial [id number] Self [id number] Medicaid Wrap Medigap Part B [id number] Self C [id number] Julio MMC Commercial [id number] Self [id number] Medicaid [facility] Medigap Part B [id number] Self [id number] Medicaid Wrap Medigap Part B [id number] Self C [id number] Julio MMC Commercial [id number] Self [id number] [employer] EMPLOYEE JUAN OFFICE NOT NEEDED Patient is In sured NOT NEEDED ACH EMP WORKERS COMPENSATION NOT NEEDED Patient is Insured NOT NEEDED Julio Managed Medicaid Commercial [id number] Self [id number] [place] [id number] S elf [id number] [place] Commercial [id number] Self [id number] [employer] MMC Commercial [id number] Self [id number] Medicaid Wrap Medigap Part B [id number] Self C [id number] Burrows MMC Commercial [id number] Self [id number] Medicaid [facility] Medigap Part B [id number] Self [id number] Medicaid Wrap Medigap Part B [id number] Self C [id number] Julio MMC Commercial [id number] Self [id number] JULIO CARE [place] [id number] Patient is Insur ed [id number] Bur[place] Managed Medicaid Commercial [id number] Self [id number] [place] [id number] [facility] [id number] [place] Commercial [id number] Self [id number] [employer] MMC Commercial [id number] Self [id number] Medicaid Wrap Medigap Part B [id number] Self C [id number] Julio MMC Commercial [id number] Self [id number] Medicaid [facility] Medigap Part B [id number] Self [id number] Medicaid Wrap Medigap Part B [id number] Self C [id number] Burrows [facility] Commercial [id number] Self [id number] BC TRAD PPO POS HMO BCARD [id number] Patient is Insured [id number] [employer] MMC Commercial [id number] Self [id number] Medicaid Wrap Medigap Part B [id number] Self C [id number] [place]rows MMC Commercial [id number] Self [id number] Medicaid [facility] Medigap Part B [id number] Self [id number] Medicaid Wrap Medigap Part B [id number] Self C [id number] Burrows MMC Commercial [id number] Self [id number] [employer] MMC Commercial [id number] Self [id number] Medicaid Wrap Medigap Part B [id number] Self C [id number] Burrows MMC Commercial [id number] Self [id number] Medicaid [facility] Medicaid [id number] Self C [id number] Julio Managed Medicaid Commercial [id number] Self [id number] Excell[employer] [place] [id number] Self [id number] [facility] Med[facility] Part B [id number] Self [id number] [employer] Commercial [id number] Self [id number] [place] Commercial [id number] Self [id number] [employer] [facility] Commercial [id number] Self [id number] [place] Managed Medicaid Commercial Self Julio Managed [place] Commercial Self [place] [id number] Patient is Insured [id number] [employer] Commercial Medicaid Self Medicaid [place] Commercial Self Medicaid [facility] Medigap Part B Self [place] Self [place] [id number] Patient is Insured C [id number] [employer] Medigap Part B Self [place] Care [place] Commercial Self Canvas [id number] Patient is Insured [id number] [employer] Commercial Self COMMERCIAL INSURANCE [id number] Patient is Insured [id number] [employer] [id number] Patient is Insure d [id number] [employer] [id number] Patient is Insure d [id number] NO FAULT UNAVAILABLE Patient is Insured UNAVAILABLE [employer] [id number] Patient is Insured [id number] [facility] 0 Patient i s Insured 0 [facility] UNAVAILABLE Patient is Insured UNAVAILABLE JULIO I [id number] Self [id number] JULIO I [id number] Self [id number] JULIO CARE PCP [id number] Patient is Insured [id number] SELF PAY [id number] Patient is Insured [id number] [facility] [id number] Patient is Insured [id number] Problems, Conditions, and Diagnoses Code Display Name Description Problem Type Effective Dates Data Source(s) Z34.80 care Supervision of other normal Jeff fields 08/23/2019 12:00:00 AM EDT eCW1 ([facility]ly [facility]) V72.42 test positive test positive 08/01/2019 03:37:16 PM EDT [facility] 626.8 Missed period Missed period 07/29/2019 08:52:13 AM EDT [facility] 300.02 Generalized anxiety disorder Generalized anxiety disor timothy 07/13/2019 12:13:03 PM EDT [facility] F17.200 Nicotine dependence, unspecified, uncomp licated Nicotine dependence, unspecified, uncomplicated 07/13/2019 12:13:03 PM EDT [facility] [id number] Migraine without aura, not intractable, without status migrainosus Migraine without aura, not intractable, without status migrainosus 07/13/2019 12:13:03 PM EDT [facility] [id number] Obesity, unspecified Obesity, unspecified 07/13/2019 12:13:03 PM EDT [facility] V70.0 Health Screening Health Screening 07/13/2019 12 :13:03 PM EDT [facility] [id number] Malaise and fatigue Malaise and fatigue Problem 0 05/25/2019 12:00:00 AM EDT MEDENT ([facility]) 36073139 Hypersomnia Hypersomnia Problem 05/25/2019 12:00:00 AM EDT MEDENT ([facility]) [id number] Chronic intractable migraine without aur a Chronic intractable migraine without aura Problem 05/25/2019 12:00:00 AM EDT MEDENT ([facility]) [id number] Chronic tension-type headache Chronic tension-type hea dache Problem 05/25/2019 12:00:00 AM EDT MEDENT ([facility]) 79477520 Obstructive sleep apnea syndrome Obstructive sle ep apnea syndrome Problem 05/25/2019 12:00:00 AM EDT [facility] ([facility]) 90739724 Benign intracranial hypertension Benign intracra nial hypertension Problem 05/25/2019 12:00:00 AM EDT MED[facility] ([facility]) 143236228 Disorders of initiating and maintaining sleep Disorders of initiating and maintaining sleep Problem 05/25/2019 12:00:00 AM EDT MEDENT ([facility]) Surgeries/Procedures Procedure Description Date Indications Data Source(s) Immunization: Boostrix 0.5mL IM (TDAP) 02/16/2020 12:0 0:00 AM EST eCW1 ([facility]) INFLUENZA VIRUS VACC SPLIT PRSRV FREE 3 YRS/> IM 11/25 12:00:00 AM EDT eCW1 ([facility]ly [facility]) Results ID Date Data Source GROUP B STREP CULTURE 03/01/2020 12:00:00 AM EST eCW1 ([facility]) Name Value Range Interpretation Code Description Data Bruna rce(s) Supporting Document(s) GROUP B STREP CULTURE eCW1 ([facility]) ID Date Data Source Glucose Challenge Test 1 Hour 12/21/2019 07:35:19 AM EDT eCW 1 ([facility]ly [facility]) Name Value Range Interpretation Code Description Data Bruna rce(s) Supporting Document(s) 169 GLUCOSE CHALLENGE TEST 1 HOUR eCW1 ([facility]) ID Date Data Source Type and Screen (D Rh Antibody Screen) 12/21/2019 07:33:17 A M EDT eCW1 ([facility]) Name Value Range Interpretation Code Description Data Bruna rce(s) Supporting Document(s) B POSITIVE BLOOD TYPE eCW1 ([facility]) NEGATIVE AB SCREEN (INDIRECT COOMB S)VIS eCW1 ([facility]) ID Date Data Source CBC - Complete Blood Count 12/21/2019 07:33:09 AM EDT eCW1 ( [facility]) Name Value Range Interpretation Code Description Data Bruna rce(s) Supporting Document(s) 8.6 WHITE BLOOD COUNT eCW1 ([facility]) 3.73 RED BLOOD COUNT eCW1 ([facility]) 11.3 HEMOGLOBIN eCW1 ([facility]) 34.7 HEMATOCRIT eCW1 ([facility]) 30.3 MEAN CORPUSCULAR HEMOGLOBIN eC W1 ([facility]) 93.0 MEAN CORPUSCULAR VOLUME eCW1 ( [facility]) 32.6 MEAN CORPUSCULAR HGB CONC eCW1 ([facility]) 322 PLATELET COUNT, AUTOMATED eCW1 ([facility]) 13.3 RED CELL DISTRIBUTION WIDTH eC W1 ([facility]) ID Date Data Source WWBC OBS FOLLOW UP OR REPEAT 12/19/2019 03:12:00 AM EDT eCW1 ([facility]) Name Value Range Interpretation Code Description Data Bruna rce(s) Supporting Document(s) WWBC OBS FOLLOW UP OR REPEAT e CW1 ([facility]) ID Date Data Source [id number] 07/30/2019 10:15:31 AM EDT [facility] In-House Urine TestsDate/Time Colle cted: July 30, 2019 10:15 AMTest Result Reference Range Normal ValueAgnieszka Silveira, July 30, 2019 10:15 AMBlood TestsDate/Time Collected: July 30, 2019 10:15 AMTest Result Reference Range Normal ValueComments: blood draw done in office, taken from left ac, tolerated well.Agnieszka Silveira, July 30, 2019 10:16 AMAssessment & Plan Orders:[id number] Vst-Est Level I [CPT-58186] Urine Culture [CPT-21843] 03300 - Venipuncture [CPT-81515] _ Name Value Range Interpretation Code Description Data Bruna rce(s) Supporting Document(s) ID Date Data Source [id number] 07/30/2019 10:10:00 AM EDT [facility] Name Value Range Interpretation Code Description Data Bruna rce(s) Supporting Document(s) URINECULTRTN NO GROWTH N [facility] ID Date Data Source [id number] 07/27/2019 09:27:24 AM EDT [facility] In-House Blood TestsDate/Time Colle cted: July 27, 2019 9:27 AMTest Result Reference Range Normal ValueComments: blood draw done in offcie done in the right ac tolerated well Bryan La MAJuly 27, 2019 9:27 AMAssessment & Plan Orders:[id number] Vst-Est Level I [CPT-74545] 14483 - Venipuncture [CPT-18155] Urine Culture [CPT-24960] Name Value Range Interpretation Code Description Data Bruna rce(s) Supporting Document(s) ID Date Data Source [id number] 07/27/2019 09:25:00 AM EDT [facility] Name Value Range Interpretation Code Description Data Bruna rce(s) Supporting Document(s) VIT D25 TOT 33.0 ng/mL 30.0-100.0 N [facility] Fa [facility] BG FASTING 97 mg/dL 70-100 N [facility] T4, FREE 0.91 ng/dL 0.76-1.46 N [facility] TSH 1.080 microintl units/mL 0.358-3.740 N [facility] ID Date Data Source [id number] 07/27/2019 09:25:00 AM EDT [facility] Name Value Range Interpretation Code Description Data Bruna rce(s) Supporting Document(s) HCT 41.6 % 36.0-47.0 N [facility] HGB 13.7 g/dL 12.0-15.5 N [facility] MCH 32.9 G/DL [facility] [facility] 30.0 PG % 27.0-33.0 [facility] PLATELETS 419 10 10*3/mm3 150-450 N [facility] RBC 4.57 10 10*6/mm3 4.00-5.40 N [facility] RDW 12.8 % 11.5-14.5 N [facility] WBC TOTAL 7.1 4.0-10.0 N [facility] ID Date Data Source [id number] 07/27/2019 09:25:00 AM EDT [facility] Name Value Range Interpretation Code Description Data Bruna rce(s) Supporting Document(s) HGBA1C 5.0 % N [facility] ID Date Data Source [id number] 07/13/2019 11:09:12 AM EDT [facility] [...] or Preferred Language: EnglishFamily and Home Address: [address] [place] [address] What is your housing situation today? I [...] really needed? Denies Insecurity: food, utilities, clothing, school childcare attendant, phone, legal services, otherWithin the past year [...] 2 nights in a row in a fci, mcfp, nursing home center or juvenile correctional facility? No Has [...] (Mother)Hyperthyroidism (Mother)Asthma (Father)High cholesterol (Father)Hypertension (Father)Myocardial infarction (MS) (Father)MS - Male under age 55 (Father)Stroke (Father)Anxiety (Father)Depression (Father)Bipolar disorder (Father)Social/Personal History: Advised to Quit/Tobacco Education: YesChief ComplaintNew PE RM 9History of Present Illness (HPI)28 yo female here to establish care. Pt recently moved here [facility]. Pt stattes was seen by PCP at [facility]. Records not available for review today. Pt states strong family history of cardiac disease. pt states dx of migraine, Pt states has upcoming appointment to see neurologist. Pt states moved here to be closer to [facility]. 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 HPI performed by: Celeste Nichols [facility], July 13, 2019 11:44 AMTransitions of Care InboundProblem ReviewProblem List was reviewed and/or updated during this visit.Medication Reconciliation & ReviewMedication List was reviewed and/or updated during this visit, including review of any dyrr-zoh-ohuztvt medications, herbal therapies, and/or supplements.Allergy ReviewAllergy List [...] FairAssessment & Plan Problems:Added: Health Screening (ICD-V70.0) (NJF73-L72.9) Assessment: Instructions: F asting labs ordered for [...] without aura, not intractable, without status migrainosus (OWD65-H85.009) Assessment: Instructions: Please continue to follow with your specialist.Obesity, unspecified (WYS51-T70.9) Assessment: Instructions: Please continue lifestyle changes to include healthy diet and physical activities.Generalized anxiety disorder (ICD-300.02) (NNK13-D12.1) Assessment: Instructions: Please try to monitor , [...] CONTRAST DYE (Critical)* SHELLFISH (Critical)Orders:COMP METABOLIC PANEL [CPT-86948] CBC W/DIFF [CPT-56352] HgBA1c [CPT-50190] LIPID PANEL [CPT-09812] TSH [CPT-54838] T-4 free [CPT-03529] Vitamin D 250H Unspecified [CPT-43555] URINALYSIS [CPT-80185] Adult - Ofc Vst, NEW, Level III [CPT-73296] Follow-Up Return to clinic: 2-3 weeks for [...] EST Former Smoker completed Former Smoker eCW1 ([facility]ly [facility]) Smoking 02/14/2020 12:00:00 AM EST Former Smoker completed Former Smoker eCW1 ([facility]) Smoking 02/08/2020 12:00:00 AM EST Former Smoker completed Former Smoker eCW1 ([facility]) Smoking 01/26/2020 12:00:00 AM EST Former Smoker completed Former Smoker eCW1 ([facility]) Smoking 01/17/2020 12:00:00 AM EST Former Smoker completed Former Smoker eCW1 ([facility]) Smoking 12/16/2019 12:00:00 AM EDT Former Smoker completed Former Smoker eCW1 ([facility]) Smoking 12/16/2019 12:00:00 AM EDT Former Smoker completed Former Smoker eCW1 ([facility]) Smoking 12/16/2019 12:00:00 AM EDT Former Smoker completed Former Smoker eCW1 ([facility]) 05/11/2019 12:00:00 AM EDT completed MEDENT ([facility]) Vital Signs ID Date Data Source UNK Name Value Range Interpretation Code Description Data Source(s) Diastolic blood pressure 70 mm[Hg] 70 mm[Hg] eCW1 ([facility]) Systolic blood pressure 130 mm[Hg] 130 mm[Hg] e CW1 ([facility]) Body weight 212 [lb_av] 212 [lb_av] W1 ([facility]) Diastolic blood pressure 72 mm[Hg] 72 mm[Hg] eCW1 ([facility]) Systolic blood pressure 120 mm[Hg] 120 mm[Hg] e CW1 ([facility]) Body mass index (BMI) [Ratio] 39.15 kg/m2 39.15 kg/m2 W1 ([facility]) Body height 61 [in_i] 61 [in_i] eCW1 ([facility]) Body weight 93.98 kg 93.98 kg W1 ([facility]) Body weight 207.2 [lb_av] 207.2 [lb_av] eCW1 ([facility]) Diastolic blood pressure 70 mm[Hg] 70 mm[Hg] eCW1 ([facility]) Systolic blood pressure 124 mm[Hg] 124 mm[Hg] e CW1 ([facility]) Body mass index (BMI) [Ratio] 38.092 kg/m2 38.0 92 kg/m2 eCW1 ([facility]) Body height 61 [in_i] 61 [in_i] eCW1 ([facility]) Body weight 201.6 [lb_av] 201.6 [lb_av] eCW1 ([facility]) Diastolic blood pressure 70 mm[Hg] 70 mm[Hg] eCW1 ([facility]) Systolic blood pressure 112 mm[Hg] 112 mm[Hg] e CW1 ([facility]) Body mass index (BMI) [Ratio] 38.205 kg/m2 38.2 05 kg/m2 eCW1 ([facility]) Body height 61 [in_i] 61 [in_i] eCW1 ([facility]) Body weight 202.2 [lb_av] 202.2 [lb_av] eCW1 ([facility]) Diastolic blood pressure 62 mm[Hg] 62 mm[Hg] eCW1 ([facility]) Systolic blood pressure 108 mm[Hg] 108 mm[Hg] e CW1 ([facility]) Body mass index (BMI) [Ratio] 37.601 kg/m2 37.6 01 kg/m2 W1 ([facility]) Body height 61 [in_i] 61 [in_i] eCW1 ([facility]) Body weight 199 [lb_av] 199 [lb_av] eCW1 ([facility]) Diastolic blood pressure 70 mm[Hg] 70 mm[Hg] eCW1 ([facility]) Systolic blood pressure 108 mm[Hg] 108 mm[Hg] e CW1 ([facility]) Body mass index (BMI) [Ratio] 35.409 kg/m2 35.4 09 kg/m2 W1 ([facility]) Body height 61 [in_i] 61 [in_i] eCW1 ([facility]) Body weight 187.4 [lb_av] 187.4 [lb_av] eCW1 ([facility]) Respiratory rate 16 /min 16 /min MEDENT ( [facility] ) Heart rate 76 /min 76 /min [facility] Diastolic blood pressure 80 mm[Hg] 80 mm[Hg] [facility]) Systolic blood pressure 110 mm[Hg] 110 mm[Hg] M EDENT ([facility]) [place] body weight 105 [lb_av] 105 [lb_av] MEDEN T ([facility]) Body mass index (BMI) [Ratio] 33.1 kg/m2 33.1 k g/m2 MEDENT ([facility]) Body weight 175.00 [lb_av] 175.00 [lb_av] MEDEN T ([facility]) Body height 61 [in_i] 61 [in_i] [facility] ([facility]) 5'1" Patient Treatment Plan of Care Planned Activity Planned Date Details Description Data Source (s) Lancets - 12/29/2019 12:00:00 AM EST e CW1 ([facility]) Alcohol Pads 70 % 12/29/2019 12:00:00 AM EST eCW1 ([facility]) Test Strips - 12/29/2019 12:00:00 AM EST eCW1 ([facility]) Contour Blood Glucose System w/Device 12/29/2019 12:00:00 AM EST eCW1 ([facility]) Acetaminophen 325 MG / butalbital 50 MG / Caffeine 40 MG Oral Tablet [Esgic] 12/21/2019 12:00:00 AM EDT eCW1 ([facility]) Acetaminophen 325 MG / butalbital 50 MG / Caffeine 40 MG Oral Tablet [Esgic] 12/21/2019 12:00:00 AM EDT eCW1 ([facility]) Acetaminophen 325 MG / butalbital 50 MG / Caffeine 40 MG Oral Tablet [Esgic] 12/21/2019 12:00:00 AM EDT eCW1 ([facility])
[2020-03-09 05:33] VITALS: BP 135/69
== END 2020-03-09 05:41 | disposition home or self-care (01) ==
LOC: M ED 01:37
DX: O99.350 Diseases of the nervous system complicating pregnancy, unspecified trimester (principal); O24.419 Gestational diabetes mellitus in pregnancy, unspecified control; Z88.0 Allergy status to penicillin; Z91.041 Radiographic dye allergy status
CPT/HCPCS: 80048; 80076; 81001; 83735; 84550; 85025; 87086; 93041; 94760; 96361; 96374; 96375; 99285; J2270; J2765

== ENCOUNTER 2020-03-16 13:27 | Inpatient (IN) | payer MEDICAID, OTHER ==
[~2020-03-16] VITALS: Ht 154.9 cm; Wt 96.9 kg
[2020-03-16] VITALS (8 sets, daily range): BP systolic 121–147; BP diastolic 55–78
[~2020-03-16 13:27] MED LIST changes: +BENA25CA4 PO
[2020-03-16] MEDS ORDERED: [UNRECOGNIZED DRUG - OTHER] PO (13:52)
[2020-03-16] MEDS ORDERED: PRENTAB9 PO (13:52)
[2020-03-16] MEDS ORDERED: LR 1,000 ML IV SCH (14:45)
[2020-03-16] MEDS ORDERED: LACTATED RINGER'S 1000 ML IV STA (14:45)
--- NOTE | 2020-03-16 15:24 | HPEPDOC ---
Obstetrical History & Physical General Date of Admission Mar 16, 2020 at 13:27 History of Present Illness 29-year-old at 38+5 weeks gestation. Presents for an induction of labor. Indication for induction:. Gestational hypertension/preeclampsia. Reports intermittent headaches, visual changes. Blood pressures were elevated in the office today and last week during an ER visit for a migraine. She denies vaginal bleeding, loss of fluid or painful, frequent uterine contractions. She reports regular movement. She denies right upper quadrant pain, shortness of breath or chest pain. course: Gestational diabetes, diet controlled. Obesity. 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 Last US: 02/12/21. EFW: 60th percentile. No placenta previa. Past Medical History Allergies Coded Allergies: Iodinated Contrast Media (Verified Allergy, Unknown, 09/20/18) Penicillins (Verified Allergy, Unknown, 09/20/18) Medications Scheduled Diphenhydramine HCl (Benadryl) 25 Mg Capsule, 2 CAP PO QPM No.137/Iron/Folic Acd ( Vitamin Tablet) 1 Each Tablet, 1 TAB PO DAILY [Mirolax] , PO DAILY Miscellaneous Medications Aspirin/Acetaminophen/Caffeine (Excedrin Migraine Geltab) 1 Each Tablet, 1 EACH PO [Tylenol] Physical Examination Physical Examination GENERAL: Alert and oriented times three. ABDOMEN: Gravid and non-tender to touch. FETUS: vertex (VTX) by Alexi. HEART RATE: Regular rate and rhythm. LUNGS: Clear to auscultation (CTA). EXTREMITIES: No edema. No clonus. SVE: FT/long/high, Cephalic, intact EFM: FHR category 1 Bazine: Contraction pattern not present Laboratory Data 24H LABS Laboratory Tests 2 03/16/20 13:59: Serology Scanned Report Hepatitis B Testing Assessment/Plan Assessment 29-year old at 38+5 weeks gestation. Dx: GHTN/pre-e. Reassuring status. Plan Admit and orient. Routine labs/orders Treat persistent severe hypertension with IV antihypertensives, and magnesium sulfate as clinically indicated Start with cervical ripening via misoprostol 50mcg SL every 4-6 hours until cervix is favorable. Counseled on Pitocin and induction of labor (IOL). Mode of delivery plan: ; as indicated. AN JIMENEZ DO Mar 16, 2020 15:24
[2020-03-16 15:28] LABS: HEMATOCRIT 34.8 % (36.0-47.0); HEMOGLOBIN 11.5 g/dl (12.0-15.5); MEAN CORPUSCULAR HEMOGLOBIN 29.3 pg (27.0-33.0); MEAN CORPUSCULAR VOLUME 88.8 fl (80.0-96.0); PLATELET COUNT, AUTOMATED 301 10^3/uL (150-450); RED BLOOD COUNT 3.92 10^6/uL (4.00-5.40); WHITE BLOOD COUNT 7.3 10^3/uL (4.0-10.0)
[2020-03-16] MEDS: ACETAMINOPHEN 500 MG TAB PO PRN ×2 (15:48→21:45)
[2020-03-16] MEDS: miSOPROStol 50MCG 1/2 TABLET SL SCH ×2 (15:49→19:26)
[2020-03-16 16:01] LABS: CREATININE,RANDOM URINE 92.5 MG/DL
[2020-03-16 16:04] LABS: ALT/SGPT 21 U/L (12-78); BILIRUBIN,TOTAL 0.9 MG/DL (0.2-1.0); CREATININE FOR GFR 0.41 MG/DL (0.55-1.30); GLOMERULAR FILTRATION RATE > 60.0 (>60); LDH LACTATE DEHYDROGENASE 159 U/L (84-246); URIC ACID 3.4 MG/DL (2.6-6.0)
[2020-03-16] MEDS ORDERED: MORPHINE 4 MG/ML 1ML VIAL/SYRINGE (J2270) IV ONE (19:30)
[2020-03-16] MEDS ORDERED: PROMETHAZINE INJ 25 MG/ML VIAL (J2550) IV ONE (21:45)
[2020-03-17] VITALS (28 sets, daily range): BP systolic 107–183; BP diastolic 58–113
[2020-03-17] MEDS: miSOPROStol 50MCG 1/2 TABLET SL SCH ×2 (01:28→05:36)
[2020-03-17] MEDS: LR 1,000 ML IV SCH ×2 (02:45→14:11)
[2020-03-17] MEDS ORDERED: LACTATED RINGER'S 1000 ML IV ONE (09:30)
[2020-03-17] MEDS: FIORICET TAB PO PRN (09:31)
--- NOTE | 2020-03-17 09:46 | IPNPDOC ---
Text Note Date of Service The patient was seen on 03/17/20. NOTE Inpatient Betsey is a feeling contractions, but not uncomfortable enough for intervention. She has eaten and taken a shower this morning. Headache persists, Fioricet ordered. Denies epigastric pain, chest pain, SOB, visual changes. Denies vaginal bleeding, LOF. Reports active movement. FHR 150bpm baseline, moderate variability, no decelerations, positive acceler ations, Category 1 UC 1.5-2 minutes apart, 60-80seconds, mild on palpation, soft resting tone. SVE closed, thick, high by NIYAH Sanders Plan for LR bolus 500mL, place vaginal Cytotec 25mcg when contractions decrease. Dr. Blanca aware of patient's status. VS,Fishbone, I+O VS, Fishbone, I+O Laboratory Tests 03/16/20 15:10 Vital Signs Date Time Temp Pulse Resp B/P (MAP) Pulse Ox O2 Delivery O2 Flow Rate FiO2 03/17/20 09:31 18 03/17/20 09:07 98.2 99 123/87 (99) I&O- Last 24 Hours up to 6 AM 03/17/20 06:00 Intake Total 1500 ml Balance 1500 ml Norma Carson CNM Mar 17, 2020 09:45
[2020-03-17] MEDS ORDERED: miSOPROStol 25MCG 1/4 TABLET PV ONE (10:15)
[2020-03-17] MEDS: ONDANSETRON 4MG/2ML VIAL IV PRN (12:42)
[2020-03-17] MEDS ORDERED: LR 1,000 ML IV SCH (14:57)
[2020-03-17] MEDS ORDERED: BUTORPHANOL 2 MG/ML INJ (J0595) IV ONE ×2 (15:00→21:45)
[2020-03-17] MEDS ORDERED: PROMETHAZINE INJ 25 MG/ML VIAL (J2550) IV ONE ×2 (15:00→21:45)
[2020-03-17] MEDS ORDERED: OXYTOCIN DRIP 30 UNITS in IV 1 EA IV SCH (15:00)
--- NOTE | 2020-03-17 15:02 | IPNPDOC ---
Text Note Date of Service The patient was seen on 03/17/20. NOTE Inpatient Betsey reports feeling contractions intensifying and active movement. Denies vaginal bleeding. Category 1 FHT, 150bpm baseline, no decelerations, positive accelerations, moderate variability UC every 1.5-3min, palpating mild to moderate, resting tone soft. SVE /-2, firm, posterior Cook's catheter inserted with 60/40 NS, tolerated well. Plan to start Pitocin. VS,Fishbone, I+O VS, Fishbone, I+O Laboratory Tests 03/16/20 15:10 Vital Signs Date Time Temp Pulse Resp B/P (MAP) Pulse Ox O2 Delivery O2 Flow Rate FiO2 03/17/20 14:09 71 18 134/78 (96) 03/17/20 13:20 97.8 I&O- Last 24 Hours up to 6 AM 03/17/20 06:00 Intake Total 1500 ml Balance 1500 ml Norma Carson CNM Mar 17, 2020 15:01
[2020-03-18] VITALS (37 sets, daily range): BP systolic 117–172; BP diastolic 56–98
[2020-03-18] MEDS: FIORICET TAB PO PRN ×2 (00:12→08:02)
[2020-03-18 01:43] LABS: HEMATOCRIT 36.3 % (36.0-47.0); HEMOGLOBIN 12.1 g/dl (12.0-15.5); MEAN CORPUSCULAR HEMOGLOBIN 29.4 pg (27.0-33.0); MEAN CORPUSCULAR HGB CONC 33.3 g/dl (32.0-36.5); MEAN CORPUSCULAR VOLUME 88.3 fl (80.0-96.0); PLATELET COUNT, AUTOMATED 300 10^3/uL (150-450); RED BLOOD COUNT 4.11 10^6/uL (4.00-5.40); WHITE BLOOD COUNT 10.8 10^3/uL (4.0-10.0)
[2020-03-18] MEDS: ACETAMINOPHEN 500 MG TAB PO PRN (02:03)
[2020-03-18 02:14] LABS: ALT/SGPT 16 U/L (12-78); BILIRUBIN,TOTAL 0.2 MG/DL (0.2-1.0); CREATININE FOR GFR 0.48 MG/DL (0.55-1.30); GLOMERULAR FILTRATION RATE > 60.0 (>60); LDH LACTATE DEHYDROGENASE 218 U/L (84-246); URIC ACID 3.5 MG/DL (2.6-6.0)
[2020-03-18] MEDS: ONDANSETRON 4MG/2ML VIAL IV PRN ×2 (02:58→09:20)
--- NOTE | 2020-03-18 04:37 | IPNPDOC ---
Text Note Date of Service The patient was seen on 03/18/20. NOTE Inpatient Betsey is increasingly more uncomfortable, coping well with contractions. Cooks catheter expelled 0030 FHT 125bpm baseline, moderate variability, positive accelerations, no decelerations, Category 1 UC every 2-4minutes, lasting 60-90sec., moderate on palpation, resting tone soft SVE 3-4/80/-2, midposition, soft Discussed pain management, offered Stadol and Epidural per her request. Pitocin at 8mu/min, continue titration. VS,Fishbone, I+O VS, Fishbone, I+O Laboratory Tests 03/18/20 01:31 Vital Signs Date Time Temp Pulse Resp B/P (MAP) Pulse Ox O2 Delivery O2 Flow Rate FiO2 03/18/20 02:05 98.2 03/18/20 00:59 78 18 134/77 (96) 03/18/20 00:42 Room Air I&O- Last 24 Hours up to 6 AM 03/18/20 06:00 Intake Total 2176 ml Output Total 2100 ml Balance 76 ml Norma Carson CNM Mar 18, 2020 04:37
[2020-03-18] MEDS ORDERED: LR 500 ML IV ONE (06:45)
[2020-03-18] MEDS: LR 1,000 ML IV SCH (08:06)
[2020-03-18] MEDS ORDERED: FENTANYL/ROPIVACAINE/NACL BAG 100 ML EPIDURAL SCH (08:30)
[2020-03-18] MEDS ORDERED: REFRIGERATOR IV KEYS XX PRN (08:30)
[2020-03-18] MEDS ORDERED: LACTATED RINGER'S 1000 ML IV PRN (08:30)
[2020-03-18] MEDS ORDERED: EPIDURAL/PCA KEYS XX PRN (08:30)
[2020-03-18] MEDS ORDERED: EPIDURAL COMMENT XX SCH (08:30)
[2020-03-18] MEDS ORDERED: ePHEDrine SULFATE 25 MG/5 ML(5MG/ML) SYRINGE IV PRN (08:30)
[2020-03-18] MEDS ORDERED: diphenhydrAMINE 50MG/ML VIAL (J1200) IV PRN ×3 (08:30→16:15)
[2020-03-18] MEDS ORDERED: ONDANSETRON 4MG/2ML VIAL IV PRN ×4 (08:30→16:15)
[2020-03-18] MEDS ORDERED: NALOXONE INJ 0.4MG/1ML VIAL (J2310 PER 1MG) IV PRN ×3 (08:30→15:15)
[2020-03-18] MEDS ORDERED: AZITHROMYCIN INJ 500 MG, VIAL MATE ADAPTER 1 EACH in D5W 250 ML IV ONE (14:15)
[2020-03-18] MEDS ORDERED: BICITRA 30ML SOLN UDC PO ONE (14:15)
[2020-03-18] MEDS ORDERED: LIDOCAINE 2% W/EPINEPHRINE 20ML VIAL **PRES FREE As Ordered ONE (14:16)
[2020-03-18] MEDS ORDERED: OXYTOCIN 30 UNITS IN 0.9% NaCl 500ML IV BAG (J2590) As Ordered ONE ×2 (14:17→15:42)
--- NOTE | 2020-03-18 14:17 | IPNPDOC ---
Obstetrical Progress Note Date of Service Mar 18, 2020 Subjective Comfortable after epidural. SROM approximately 10 AM meconium-stained amniotic fluid. Cervix was unchanged at that time. Currently on 14 milliunits of Pitocin. Objective Vital Signs Date Time Temp Pulse Resp B/P (MAP) Pulse Ox O2 Delivery O2 Flow Rate FiO2 03/18/20 08:04 81 18 131/65 (87) 03/18/20 07:11 97.4 03/18/20 00:42 Room Air Assessment Variability: Moderate Accelerations: Positive Heart Rate Tracing: Category I Tocometer Contractions: Yes Sterile Vaginal Examination Dilation: 3 cm Effacement (%): 50% Station: -3 Cervical Consistency: Medium Cervical Position: Posterior Postion/Presentation: Cephalic presentation Assessment and Plan Age: 29 Status: Reassuring (29-year-old undergoing induction labor now with arrest of dilation. Has been unchanged since after midnight. Plan to proceed with section. Anesthesia is notified. All questions answered couple is in agreement with plan of care.) Anticipate: Section ABENA DOMINGUEZ MD. Mar 18, 2020 14:17
[2020-03-18] MEDS ORDERED: PERCOCET 5MG/325MG TAB PO PRN (14:30)
[2020-03-18] MEDS ORDERED: RHOGAM 300 MCG (1500 IU) INJ (J2790) IM SCH (14:30)
[2020-03-18] MEDS ORDERED: MOM 30ML SUSPENSION UDC PO PRN (14:30)
[2020-03-18] MEDS ORDERED: MEASLES,MUMPS,RUBELLA VACCINE INJ (MMR-II) (90707) SC SCH (14:30)
[2020-03-18] MEDS ORDERED: METOCLOPRAMIDE INJ 10MG/2ML VIAL (J2765 PER 1) As Ordered ONE (14:48)
[2020-03-18] MEDS ORDERED: ONDANSETRON 4MG/2ML VIAL As Ordered ONE (14:48)
[2020-03-18] MEDS ORDERED: ceFAZolin SOD 2 GM in IV 1 EA IV ONE (15:00)
[2020-03-18] MEDS ORDERED: OXYTOCIN DRIP 30 UNITS in IV 1 EA IV SCH (15:00)
[2020-03-18] MEDS ORDERED: LR 1,000 ML IV SCH (15:00)
[2020-03-18] MEDS ORDERED: OXYTOCIN INJ 10 UNITS/ML VIAL (J2590) As Ordered ONE (15:05)
[2020-03-18] MEDS ORDERED: MORPHINE PRES-FREE INJ 10 MG/10 ML VIAL (J2274) As Ordered ONE (15:13)
[2020-03-18] MEDS ORDERED: NALBUPHINE HCL 10 MG/ML AMP (J2300) IV PRN (15:15)
[2020-03-18] MEDS ORDERED: METOCLOPRAMIDE INJ 10MG/2ML VIAL (J2765 PER 1) IV PRN (15:15)
[2020-03-18] MEDS ORDERED: KETOROLAC 60MG 2ML VIAL As Ordered ONE (15:19)
--- NOTE | 2020-03-18 15:32 | ROOPDOC ---
[facility] Report Of Operation Report of Operation DATE OF PROCEDURE: 03/18/20 SURGEON: Milagros Blanca M.D. HEALTHCARE FACILITY ADMINISTRATOR: Wilder Richter M.D. ( essential for the surgery for tissue retractions, exposure and delivery of ) PROCEDURE: Primary section PREOPERATIVE DIAGNOSIS: 1.Arest of dilation POSTOPERATIVE DIAGNOSIS: 1.Arrest of dilation ANESTHESIA:Epidural ESTIMATED BLOOD LOSS: 500 mL URINE OUTPUT: 125 mL INTRAVENOUS FLUIDS:900 mL of lactated Ringer's solution PREOPERATIVE ANTIBIOTICS:. 2 g of [id number] azithromycin OPERATIVE FINDINGS: Liveborn male infant, Apgars 9 and 9. Weight 3360 g or 7 lbs. 7 oz. SPECIMENS: None DESCRIPTION OF PROCEDURE: After informed consent was obtained and written consent was reviewed. The patient was brought to the operating room. She was then placed in the supine position with a left lateral tilt. Hall catheter was placed and to gravity. Patient was then prepped and draped in the normal sterile fashion. A timeout operating room was performed identifying the patient, procedure be performed as well as drug allergies. Anesthesia was tested and deemed to be adequate. Pfannenstiel skin incision was made and this was carried down to the underlying rectus fascia. The fascia was then scored and this incision was extended bilaterally. The fascia was then dissected off the underlying rectus muscle superiorly and inferiorly. The rectus muscles were then in the midline. The peritoneum is then entered. Vesicouterine peritoneum was then tented and excised and a bladder flap was created. Mobius retractor was then placed. Next, a curvilinear incision was then made in the lower uterine segment. The head was brought to the level of the incision atraumatically and delivered along the shoulders and corpus. The cord was clamped x2. The infant was brought over to the warmer with a good cry. Placenta was drained and delivered grossly intact. The uterus was cleared of all clots and debris and the uterine incision was then closed using 0 Vicryl in a running locking fashion, followed second layer for imbrication using 0 Vicryl. The abdomen was suctioned. Surgical sites reinspected and noted be hemostatic. The retractor was then removed. The anterior peritoneum was then reapproximated with 3-0 Vicryl. The rectus muscles were reapproximated 3-0 Vicryl. The fascia was then closed using 0 Vicryl in a running nonlocking fashion. The subcutaneous tissues was then irrigated and suctioned. Subcutaneous tissue was reapproximated using 3-0 Vicryl. Several subdermal stitch is placed using 3-0 Vicryl and the skin was closed with 4-0 Monocryl and subcuticular fashion. This incision was then cleaned and dried and was dressed. The patient was then taken to recovery in stable condition. All counts were correct. The couple has decided to name the Ailyn. My surgical corsetier Dr. Richter played in an essential role during the operation. He assisted with tissue identification retraction, delivery of the , as well as wound closure. MILAGROS BLANCA MD. Mar 18, 2020 15:32
[2020-03-18] MEDS ORDERED: fentaNYL 100 MCG/2 ML INJECTION (J3010) IV PRN (16:15)
[2020-03-18] MEDS ORDERED: oxyCODONE 5MG TAB PO PRN (16:15)
[2020-03-18] MEDS ORDERED: MEPERIDINE INJ 25 MG/ML VIAL (J2175) IV PRN (16:15)
[2020-03-18] MEDS ORDERED: HYDROMORPHONE HCL 0.5 MG/ 0.5 ML SYRINGE (J1170 PER 1) IV PRN (16:15)
[2020-03-18] MEDS ORDERED: LR 1,000 ML IV STA (18:40)
[2020-03-18] MEDS: DOCUSATE SODIUM 100MG CAPSULE PO SCH (20:32)
[2020-03-18] MEDS: KETOROLAC 30 MG/ML 1ML VIAL IV SCH (20:33)
[2020-03-19 02:00] VITALS: BP 156/82
[2020-03-19] MEDS: KETOROLAC 30 MG/ML 1ML VIAL IV SCH ×2 (03:12→09:00)
[2020-03-19] MEDS: PERCOCET 5MG/325MG TAB PO PRN ×3 (05:42→21:05)
[2020-03-19 05:59] VITALS: BP 146/78
[2020-03-19 08:03] LABS: HEMATOCRIT 29.8 % (36.0-47.0); MEAN CORPUSCULAR HEMOGLOBIN 29.8 pg (27.0-33.0); MEAN CORPUSCULAR HGB CONC 33.6 g/dl (32.0-36.5); MEAN CORPUSCULAR VOLUME 88.7 fl (80.0-96.0); PLATELET COUNT, AUTOMATED 240 10^3/uL (150-450); RED BLOOD COUNT 3.36 10^6/uL (4.00-5.40); WHITE BLOOD COUNT 8.8 10^3/uL (4.0-10.0)
--- NOTE | 2020-03-19 08:51 | IPNPDOC ---
Progress Note Date of Service: Mar 19, 2020 Day#: 1 Progress Note SUBJECT: Doing well without complaints. Ambulating, voiding and pain is well- controlled. Reports minimal lochia. OBJECTIVE: VITAL SIGNS: Within normal limits, afebrile. Alert and oriented times three. Abdomen: Fundus firm at U-2. Soft, NTTP. Incision: dressed Ext: neg calf tenderness. ASSESSMENT: /postoperative day #1 status post delivery. Recovering in stable condition. PLAN: 1. Continue routine /postoperative care 2. Discharge plans for tomorrow VS, I&O, 24H, Fishbone Vital Signs/I&O Vital Signs Date Time Temp Pulse Resp B/P (MAP) Pulse Ox O2 Delivery O2 Flow Rate FiO2 03/19/20 06:12 15 03/19/20 05:59 97.9 72 146/78 (100) 100 Room Air I&O- Last 24 Hours up to 6 AM 03/19/20 06:00 Intake Total 4670 ml Output Total 3110 ml Balance 1560 ml Laboratory Data 24H LABS Laboratory Tests 2 03/19/20 07:41: Nucleated Red Blood Cells % (auto) 0.0 CBC/BMP Laboratory Tests 03/19/20 07:41 ABENA DOMINGUEZ MD. Mar 19, 2020 08:51
[2020-03-19] MEDS: DOCUSATE SODIUM 100MG CAPSULE PO SCH ×2 (09:00→21:02)
[2020-03-19] MEDS: PRENATAL VITAMINS CHEWABLE TABLET PO SCH (09:00)
[2020-03-19 09:59] VITALS: BP_SYST 146; BP_SYST 151; BP_DIAS 88
[2020-03-19 14:00] VITALS: BP 143/88
[2020-03-19] MEDS: IBUPROFEN 800 MG TAB PO SCH (16:41)
[2020-03-19 18:00] VITALS: BP_SYST 150; BP_SYST 160; BP_DIAS 82; BP_DIAS 90
[2020-03-19] MEDS: LABETALOL 100MG TAB PO SCH (19:08)
[2020-03-19 19:52] LABS: HEMATOCRIT 29.9 % (36.0-47.0); MEAN CORPUSCULAR HGB CONC 33.4 g/dl (32.0-36.5); MEAN CORPUSCULAR VOLUME 89.8 fl (80.0-96.0); PLATELET COUNT, AUTOMATED 279 10^3/uL (150-450); RED BLOOD COUNT 3.33 10^6/uL (4.00-5.40); WHITE BLOOD COUNT 9.8 10^3/uL (4.0-10.0)
[2020-03-19 20:12] LABS: ALT/SGPT 13 U/L (12-78); BILIRUBIN,TOTAL 0.1 MG/DL (0.2-1.0); CREATININE FOR GFR 0.67 MG/DL (0.55-1.30); GLOMERULAR FILTRATION RATE > 60.0 (>60); LDH LACTATE DEHYDROGENASE 221 U/L (84-246); URIC ACID 4.5 MG/DL (2.6-6.0)
[2020-03-19 22:00] VITALS: BP 138/92
[2020-03-20] MEDS: IBUPROFEN 800 MG TAB PO SCH ×2 (01:32→08:15)
[2020-03-20 02:00] VITALS: BP 132/78
[2020-03-20] MEDS ORDERED: PERCOCET PO (02:51)
[2020-03-20] MEDS ORDERED: IBUP80TA PO (02:51)
--- NOTE | 2020-03-20 02:54 | DS.PDOC ---
Discharge Summary General Date of Admission Mar 16, 2020 at 13:27 Date of Discharge 03/20/20 Attending Physician: ABENA DOMINGUEZ MD. Discharge Summary PROCEDURES PERFORMED DURING STAY: 1. Epidural 2. section. ADMITTING DIAGNOSES: 1. Gestational hypertension. DISCHARGE DIAGNOSES: 1. Gestational diabetes to section for arrest of dilation 3 gestational hypertension. COMPLICATIONS/CHIEF COMPLAINT: Elevated Bp.. HISTORY OF PRESENT ILLNESS: 29-year-old 1 who presented for induction labor secondary to gestational hypertension. She was induced over 2 days she had arrest of dilation at 4 cm underwent uncomplicated section productive of a liveborn female . Estimated blood loss is 500 mils. Patient did well postoperatively by postoperative day #2 had met all discharge criteria is as discharged home in stable condition. DISCHARGE MEDICATIONS: Please see below. ALLERGIES: Please see below. PHYSICAL EXAMINATION ON DISCHARGE: VITAL SIGNS: Please see below. GENERAL: Well-appearing no acute distress ABDOMINAL EXAMINATION: Soft, appropriately tender Incision is dressed NEUROLOGICAL EXAMINATION: Grossly intact PSYCHIATRIC EXAMINATION: Appropriate LABORATORY DATA: Please see below. ACTIVITY: As tolerated. DIET: Regular DISCHARGE PLAN: Home DISCHARGE INSTRUCTIONS: 1. Remove dressing in 5-7 days from delivery 2. To remain on pelvic rest for 6 weeks 3. To report severe pain heavy vaginal bleeding fever or incisional issues. DISCHARGE CONDITION: Stable. Vital Signs/I&Os Vital Signs Date Time Temp Pulse Resp B/P (MAP) Pulse Ox O2 Delivery O2 Flow Rate FiO2 03/20/20 02:00 98.6 84 16 132/78 (96) 98 Room Air I&O- Last 24 Hours up to 6 AM 03/20/20 06:00 Output Total 3200 ml Balance -3200 ml Laboratory Data Labs 24H Laboratory Tests 2 03/19/20 07:41: Nucleated Red Blood Cells % (auto) 0.0 03/19/20 19:09: Nucleated Red Blood Cells % (auto) 0.0, Glomerular Filtration Rate > 60.0, Uric Acid 4.5, Total Bilirubin 0.1L, Aspartate Amino Transf (AST/SGOT) 12, Alanine Aminotransferase (ALT/SGPT) 13, Lactate Dehydrogenase 221 CBC/BMP Laboratory Tests 03/19/20 07:41 03/19/20 19:09 Discharge Medications Scheduled Diphenhydramine HCl (Benadryl) 25 Mg Capsule, 2 CAP PO QPM, (Reported) Ibuprofen (Ibuprofen) 800 Mg Tablet, 800 MG PO Q8H No.137/Iron/Folic Acd ( Vitamin Tablet) 1 Each Tablet, 1 TAB PO DAILY, (Reported) [Mirolax] , PO DAILY, (Reported) Scheduled PRN Oxycodone/Acetaminophen (Oxycodone-Acetaminophen 5-325) 1 Each Tablet, 1-2 TAB PO Q6H PRN for SEVERE PAIN (PS 8-10) Miscellaneous Medications Aspirin/Acetaminophen/Caffeine (Excedrin Migraine Geltab) 1 Each Tablet, 1 EACH PO, (Reported) [Tylenol] , (Reported) Allergies Coded Allergies: Iodinated Contrast Media (Verified Allergy, Unknown, 09/20/18) Penicillins (Verified Allergy, Unknown, CANKER SORES, 03/18/20) can take amoxicillin ABENA DOMINGUEZ MD. Mar 20, 2020 02:54
[2020-03-20] MEDS: PERCOCET 5MG/325MG TAB PO PRN (05:39)
[2020-03-20 06:00] VITALS: BP 142/77
[2020-03-20 06:26] VITALS: BP 142/77
[2020-03-20] MEDS: LABETALOL 100MG TAB PO SCH (06:26)
[2020-03-20] MEDS: PRENATAL VITAMINS CHEWABLE TABLET PO SCH (08:14)
[2020-03-20] MEDS: DOCUSATE SODIUM 100MG CAPSULE PO SCH (08:14)
[2020-03-20] MEDS ORDERED: LABE100T4 PO (14:52)
== END 2020-03-20 11:50 | disposition home or self-care (01) | DRG 540 ==
LOC: M LDI 13:27 → M OBS 03-18 17:01
PROVIDERS: ADMIT Obstetrics & Gynecology; ATTEND Obstetrics & Gynecology
PROC: 3E0P7GC Introduction of Other Therapeutic Substance into Female Reproductive, Via Natural or Artificial Opening (ICD-10-PCS; 2020-03-16)
PROC: 10D00Z1 Extraction of Products of Conception, Low, Open Approach (ICD-10-PCS; principal; 2020-03-18 14:12)
DX: O13.2 Gestational [pregnancy-induced] hypertension without significant proteinuria, second trimester (principal); E66.9 Obesity, unspecified; O24.420 Gestational diabetes mellitus in childbirth, diet controlled; O99.214 Obesity complicating childbirth; Z3A.38 38 weeks gestation of pregnancy; O77.0 Labor and delivery complicated by meconium in amniotic fluid; O62.0 Primary inadequate contractions; Z37.0 Single live birth